=== PATIENT | female | born 1975 | race Caucasian/White ===

== ENCOUNTER 2017-10-13 18:05 | Emergency (ER) | payer SELFPAY ==
--- NOTE | 2017-10-13 20:47 | RAD REPORT ---
EXAM DESCRIPTION: CT - Soft Tissue Neck Wo Contr CLINICAL HISTORY: r/o abscess, no contrast;Sore throat Neck pain COMPARISON: [id number] dated 06/08/[address] scans are performed using dose optimization technique as appropriate and may includ e automated exposure control or mA/KV adjustment according to patient size. FINDINGS: The exam is significantly limited by lack of IV contrast. Specifically, evaluation for abs cess is limited. Within this limitation, no evidence of an abscess is identified. No prevertebral soft tissue swelling . Pharyngeal and laryngeal structures have a normal noncontrast appearance. The salivary glands are s ymmetric. Mildly prominent bilateral jugular chain lymph nodes are seen, favored to be reactive in et iology. No fracture identified. The upper lung mijares appear clear. Visualized paranasal sinuses and mastoids appear clear. IMPRESSION: Limited noncontrast examination demonstrates no evidence of acute abnormality.
--- NOTE | 2017-10-13 20:53 | EDPHYS ---
Physician Documentation [facility] Name: Renee Castellon Age: 42 yrs Sex: Female : 1975 Arrival Date: 10/13/2017 Time: 18:09 Bed 16 Private MD: Brendan Monaco ED Physician Emilio Cortez HPI: 10/13 19:06 This 42 yrs old Female presents to ER via Ambulatory with complaints of kb Swollen Glands. 19:06 The patient presents with sore throat, states she has felt like her throat is raw for kb the past 11 days and keeps getting worse. States she feels like there is something behind her tongue on the right side that keeps getting bigger. The patient describes throat pain as constant. Onset: The symptoms/episode began/occurred 11 day(s) ago. Severity of symptoms: At their worst the symptoms were mild, moderate, in the emergency department the symptoms are unchanged. Modifying factors: The symptoms are alleviated by nothing, the symptoms are aggravated by nothing. Associated signs and symptoms: Pertinent positives: Sore throat Pertinent negatives chest pain, chills, cough, diarrhea, dysphagia, earache, fever, flu-like symptoms, headache, nausea, rhinorrhea, shortness of breath, vomiting. The patient has not experienced similar symptoms in the past. The patient has not recently seen a physician. 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 - Social history:: Smoking status: Patient uses tobacco products, denies chronic smoking, but will smoke occasionally, Patient uses alcohol, occasionally. - Ebola Screening: : Patient negative for fever greater than or equal to 101.5 degrees Fahrenheit, and additional compatible Ebola Virus Disease symptoms Patient denies exposure to infectious person Patient denies travel to an Ebola-affected area in the 21 days before illness onset No symptoms or risks identified at this time. ROS: 19:04 Constitutional: Negative for fever, chills, and weight loss, Neck: Negative for injury, kb pain, and swelling, Cardiovascular: Negative for chest pain, palpitations, and edema, Respiratory: Negative for shortness of breath, cough, wheezing, and pleuritic chest pain, Abdomen/GI: Negative for abdominal pain, nausea, vomiting, diarrhea, and constipation, Back: Negative for injury and pain, MS/Extremity: Negative for injury and deformity, Skin: Negative for injury, rash, and discoloration, Neuro: Negative for headache, weakness, numbness, tingling, and seizure. 19:04 ENT: Positive for sinus pain, feels like there is something stuck in right side of throat, behind tongue. Exam: 19:04 Constitutional: This is a well developed, well nourished patient who is awake, alert, kb and in no acute distress. Head/Face: Normocephalic, atraumatic. Chest/axilla: Normal chest wall appearance and motion. Nontender with no deformity. No lesions are appreciated. Cardiovascular: Regular rate and rhythm with a normal S1 and S2. No gallops, murmurs, or rubs. Normal PMI, no JVD. No pulse deficits. Respiratory: Lungs have equal breath sounds bilaterally, clear to auscultation and percussion. No rales, rhonchi or wheezes noted. No increased work of breathing, no retractions or nasal flaring. Abdomen/GI: Soft, non-tender, with normal bowel sounds. No distension or tympany. No guarding or rebound. No evidence of tenderness throughout. Skin: Warm, dry with normal turgor. Normal color with no rashes, no lesions, and no evidence of cellulitis. MS/ Extremity: Pulses equal, no cyanosis. Neurovascular intact. Full, normal range of motion. Neuro: Awake and alert, GCS 15, oriented to person, place, time, and situation. Cranial nerves II-XII grossly intact. Motor strength 5/5 in all extremities. Sensory grossly intact. Cerebellar exam normal. Normal gait. 19:04 ENT: Posterior pharynx: Airway: normal, no evidence of obstruction, Tonsils: are normal in appearance, Uvula: normal, midline, erythema, that is mild. Vital Signs: 18:33 BP 130 / 92; Pulse 73; Resp 16; Temp 97.2; Pulse Ox 99% on R/A; Weight 82.1 kg; Height aj 5 ft. 6 in. (167.64 cm); 19:54 BP 113 / 84; Pulse 59; Resp 16; Pulse Ox 100% on R/A; aa1 21:07 BP 101 / 67; Pulse 60; Resp 16; Temp 97.4; Pulse Ox 100% on R/A; Pain 3/10; aa1 18:33 Body Mass Index 29.21 (82.10 kg, 167.64 cm) aj MDM: 18:36 Patient medically screened. kb 19:04 Data reviewed: vital signs, nurses notes. Data interpreted: Pulse oximetry: on room air kb is 99 %. Interpretation: normal. 20:51 Counseling: I had a detailed discussion with the patient and/or guardian regarding: the kb historical points, exam findings, and any diagnostic results supporting the discharge/admit diagnosis, lab results, radiology results, the need for outpatient follow up, a family practitioner, to return to the emergency department if symptoms worsen or persist or if there are any questions or concerns that arise at home. 10/13 18:42 Order name: Strep; Complete Time: 19:37 kb 10/13 18:42 Order name: [place] Screen Profile; Complete Time: 20:14 kb 10/13 19:37 Order name: Throat Culture EDMS 10/13 20:24 Order name: Soft Tissue Neck Wo Contr; Complete Time: 20:50 EDMS Administered Medications: No medications were administered Disposition: 10/13/17 20:53 Discharged to Home. Impression: Pain in throat. - Condition is Stable. - Discharge Instructions: Sore Throat, [id number]. - Medication Reconciliation Form, Thank You Letter, Antibiotic Education, Prescription Opioid Use form. - Follow up: Emergency Department; When: As needed; Reason: Worsening of condition. Follow up: Private Physician; When: 2 - 3 days; Reason: Recheck today's complaints, Continuance of care, Re-evaluation by your physician. Addendum: 10/28/2017 10:49 Co-signature as Attending Physician, Emilio Cortez MD I agree with the assessment and k dr plan of care. Signatures: Dispatcher [employer] EDCT Marylu Carreon, MAUREEN BROWN-Janelle Martin RN RN aa1 Allison Huggins RN Emilio Christensen MD MD kdr Corrections: (The following items were deleted from the chart) 10/13 20:24 20:17 Soft Tissue Neck W/Contr+CT.RAD.BRZ ordered. EDMS EDMS 20:53 20:53 10/13/2017 20:53 Discharged to Home. Impression: Sinus Congestion. Condition is kb Stable. Forms are Medication Reconciliation Form, Thank You Letter, Antibiotic Education, Prescription Opioid Use. Follow up: Emergency Department; When: As needed; Reason: Worsening of condition. Follow up: Private Physician; When: 2 - 3 days; Reason: Recheck today's complaints, Continuance of care, Re-evaluation by your physician. kb 21:09 20:53 10/13/2017 20:53 Discharged to Home. Impression: Pain in throat. Condition is aa1 Stable. Forms are Medication Reconciliation Form, Thank You Letter, Antibiotic Education, Prescription Opioid Use. Follow up: Emergency Department; When: As needed; Reason: Worsening of condition. Follow up: Private Physician; When: 2 - 3 days; Reason: Recheck today's complaints, Continuance of care, Re-evaluation by your physician. kb
--- NOTE | 2017-10-13 20:53 | ER ---
Nurse's Notes [facility] Name: Renee Castellon Age: 42 yrs Sex: Female : 1975 Arrival Date: 10/13/2017 Time: 18:09 Bed 16 Private MD: Brendan Monaco Diagnosis: Pain in throat Presentation: 10/13 18:31 Presenting complaint: Patient states: Sensation of swelling to right side of throat aj with right ear pain for 11 days. Patient reports taking Ampicillin for 3 days with no change in condition. Transition of care: patient was not received from another setting of care. Onset of symptoms was October 02, 2017. Risk Assessment: Do you want to hurt yourself or someone else? Patient reports no desire to harm self or others. Initial Sepsis Screen: Does the patient meet any 2 criteria? No. Patient's initial sepsis screen is negative. Does the patient have a suspected source of infection? No. Patient's initial sepsis screen is negative. Care prior to arrival: None. 18:31 Method Of Arrival: Ambulatory aj 18:31 Acuity: MICH 3 aj Triage Assessment: 18:33 General: Appears in no apparent distress. comfortable, Behavior is calm, cooperative, aj appropriate for age. Pain: Complains of pain in right ear. EENT: Throat is clear Reports pain in right ear Sensation of swelling to right side of throat. Neuro: Level of Consciousness is awake, alert, obeys commands, Oriented to person, place, time, situation, Appropriate for age. Respiratory: Airway is patent Respiratory effort is even, unlabored, Respiratory pattern is regular, symmetrical. Derm: Skin is intact, is healthy with good turgor, Skin is pink, warm \T\ dry. normal. 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 - Social history:: Smoking status: Patient uses tobacco products, denies chronic smoking, but will smoke occasionally, Patient uses alcohol, occasionally. - Ebola Screening: : Patient negative for fever greater than or equal to 101.5 degrees Fahrenheit, and additional compatible Ebola Virus Disease symptoms Patient denies exposure to infectious person Patient denies travel to an Ebola-affected area in the 21 days before illness onset No symptoms or risks identified at this time. Screenin:02 Abuse screen: Denies threats or abuse. Denies injuries from another. Nutritional aa1 screening: No deficits noted. Tuberculosis screening: No symptoms or risk factors identified. Fall Risk None identified. Assessment: 19:02 General: Appears in no apparent distress. comfortable, Behavior is calm, cooperative, aa1 appropriate for age. Pain: Complains of pain in neck and right ear Quality of pain is described as aching, Pain began 11 days ago. Neuro: Level of Consciousness is awake, alert, obeys commands, Oriented to person, place, time, situation, Moves all extremities. Full function Speech is normal. Respiratory: Airway is patent Respiratory effort is even, unlabored, Respiratory pattern is regular, symmetrical, Breath sounds are clear bilaterally. GI: No signs and/or symptoms were reported involving the gastrointestinal system. : No signs and/or symptoms were reported regarding the genitourinary system. EENT: Throat is reddened Reports pain when swallowing. Derm: Skin is intact, is healthy with good turgor, Skin is pink, warm \T\ dry. Musculoskeletal: Circulation, motion, and sensation intact. Capillary refill < 3 seconds. 19:54 Reassessment: Patient appears in no apparent distress at this time. Patient and/or aa1 family updated on plan of care and expected duration. Pain level reassessed. Patient is alert, oriented x 3, equal unlabored respirations, skin warm/dry/pink. Awaiting mono screen. 20:29 Reassessment: Patient appears in no apparent distress at this time. Patient and/or aa1 family updated on plan of care and expected duration. Pain level reassessed. Patient is alert, oriented x 3, equal unlabored respirations, skin warm/dry/pink. Pt taken to CT at this time. 21:07 Reassessment: Patient appears in no apparent distress at this time. Patient and/or aa1 family updated on plan of care and expected duration. Pain level reassessed. Patient is alert, oriented x 3, equal unlabored respirations, skin warm/dry/pink. Discussed d/c \T\ f/u instructions with pt; denies questions or concerns at this time. Vital Signs: 18:33 BP 130 / 92; Pulse 73; Resp 16; Temp 97.2; Pulse Ox 99% on R/A; Weight 82.1 kg; Height aj 5 ft. 6 in. (167.64 cm); 19:54 BP 113 / 84; Pulse 59; Resp 16; Pulse Ox 100% on R/A; aa1 21:07 BP 101 / 67; Pulse 60; Resp 16; Temp 97.4; Pulse Ox 100% on R/A; Pain 3/10; aa1 18:33 Body Mass Index 29.21 (82.10 kg, 167.64 cm) aj ED Course: 18:09 Patient arrived in ED. sb2 18:09 Brendan Monaco MD is Private Physician. sb2 18:33 Triage completed. aj 18:33 Arm band placed on left wrist. Patient placed. aj 18:36 Marylu Carreon F[facility]-C [facility]. kb 18:36 Emilio Cortez MD is Attending Physician. kb 19:02 Patient has correct armband on for positive identification. Bed in low position. Call aa1 light in reach. Pulse ox on. NIBP on. Warm blanket given. 19:05 Initial lab(s) drawn, by me, sent to lab. Strep swab sent to lab. aa1 19:13 Janelle Barnett, RN is Primary Nurse. aa1 20:28 [facility] moved to [facility]. [place] 20:33 CT completed. Patient tolerated procedure well. Patient moved back from [facility]. ga 20:33 Soft Tissue Neck Wo Contr In Process Unspecified. EDMS 21:07 No provider procedures requiring assistance completed. Patient did not have IV access aa1 during this emergency room visit. Administered Medications: No medications were administered Outcome: 20:53 Discharge ordered by . kb 21:07 Discharged to home ambulatory. aa1 21:07 Condition: good 21:07 Discharge instructions given to patient, Instructed on discharge instructions, follow up and referral plans. medication usage, Demonstrated understanding of instructions, follow-up care, medications. 21:09 Patient left the ED. aa1 Signatures: Dispatcher [employer] EDMA Marylu Carreon FNP-C FNP-Janelle Martin, RN RN aa1 Allison Huggins, RN RN aj Shun, Yordy Darby, Elida 2
[2017-10-13 21:16] VITALS: O2SAT 100
[2017-10-13 21:18] VITALS: BP 101/67; TEMP 97.4
== END 2017-10-13 21:09 | disposition home or self-care (01) ==
LOC: ER 18:05
DX: R07.0 Pain in throat (principal); K21.9 Gastro-esophageal reflux disease without esophagitis; Z88.5 Allergy status to narcotic agent; Z91.013 Allergy to seafood
CPT/HCPCS: 36415; 70490; 86308; 87070; 87081; 99284

== ENCOUNTER 2017-12-02 08:26 | Emergency (ER) | payer OTHER, SELFPAY ==
--- NOTE | 2017-12-02 09:20 | RAD REPORT ---
EXAM DESCRIPTION: CT - Soft Tissue Neck Wo Contr - 12/02/2017 9:06 am CLINICAL HISTORY: Throat pain, mass sensation tongue or tongue base region COMPARISON: Soft tissue CT neck exam October 13 TECHNIQUE: Axial 3 millimeter thick images of the neck were obtained without contrast. Patient has i odinated contrast allergy. Sagittal and coronal reformatted images generated and reviewed. All CT scans are performed using dose optimization technique as appropriate and may include automated exposure control or mA/KV adjustment according to patient size. FINDINGS: No globe or orbital content abnormality. Mastoid air cells and paranasal sinuses are clear . Intracranial portion of the examination is unremarkable. No pharyngeal mucosal mass or asymmetry identifiable. No tonsillar mass. Soft palate is normal in anjali earance as well. No tongue or tongue base mass appreciated on this study. Musculature along the floor the mouth normal in appearance as well. Epiglottis is normal in appearance. No laryngeal mass or asymmetry. No abnormal lymphadenopathy in the neck soft tissues. There are a few 10 mm or less bilateral cervica l lymph nodes present in a pattern similar to the September study. No progressive lymphadenopathy. The p arotid, thyroid and submandibular gland tissues are normal in appearance. IMPRESSION: No tongue or tongue base mass identifiable on this study. No suspicious finding to expla in the throat pain or tongue region mass sensation. Small bilateral 10 mm or less cervical lymph nodes in a pattern similar to September 2017.
--- NOTE | 2017-12-02 09:29 | ER ---
Nurse's Notes [facility] Name: Renee Castellon Age: 42 yrs Sex: Female : 1975 Arrival Date: 12/02/2017 Time: 08:30 Bed 5 Private MD: Diagnosis: Pain in throat Presentation: 12/02 08:37 Presenting complaint: Patient states: on october 03 she felt something behind her iw tongue, it feels bigger now, and also has pain to right jaw, right ear, across right side of face that woke her up in her sleep last night, denies fever, denies difficulty swallowing. Transition of care: patient was not received from another setting of care. Onset of symptoms was October 03, 2017. Risk Assessment: Do you want to hurt yourself or someone else? Patient reports no desire to harm self or others. Initial Sepsis Screen: Does the patient meet any 2 criteria? No. Patient's initial sepsis screen is negative. Does the patient have a suspected source of infection? No. Patient's initial sepsis screen is negative. Care prior to arrival: None. 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 - Social history:: Smoking status: Patient/guardian denies using tobacco, Patient/guardian denies using alcohol. - Ebola Screening: : Patient negative for fever greater than or equal to 101.5 degrees Fahrenheit, and additional compatible Ebola Virus Disease symptoms Patient denies exposure to infectious person Patient denies travel to an Ebola-affected area in the 21 days before illness onset No symptoms or risks identified at this time. - Family history:: not pertinent. - Hospitalizations: : No recent hospitalization is reported. Screenin:45 Abuse screen: Denies threats or abuse. Denies injuries from another. Nutritional bp screening: No deficits noted. Tuberculosis screening: No symptoms or risk factors identified. Fall Risk None identified. Assessment: 08:40 General: Appears in no apparent distress. comfortable, Behavior is cooperative, bp appropriate for age, anxious, 42YO WF P/W SUBJECTIVE LYMPHADENOPATHY AND UNPLANNED WEIGHT LOSS WITH DYSPHAGIA. NO OBJECTIVE FINDINGS AT THIS TIME. Pain: Denies pain. Neuro: Level of Consciousness is awake, alert, obeys commands, Oriented to person, place, time, situation, Appropriate for age. Cardiovascular: No deficits noted. Respiratory: Airway is patent Respiratory effort is even, unlabored, Respiratory pattern is regular, symmetrical, Breath sounds are clear bilaterally. GI: No signs and/or symptoms were reported involving the gastrointestinal system. : No signs and/or symptoms were reported regarding the genitourinary system. EENT: Throat is clear bilaterally with gag reflex present, NO DROOLING OR DIFFICULTY WITH OWN SECRETION. Derm: No deficits noted. Musculoskeletal: Circulation, motion, and sensation intact. Range of motion: intact in all extremities. 09:09 Reassessment: PT RETURNED FROM CT. ALL CURRENT STUDIES COMPLETED. bp 09:33 Reassessment: PT D/C HOME AMBULATORY, DX WITH THROAT PAIN. bp Vital Signs: 08:40 BP 141 / 91; Pulse 78; Resp 16; Temp 97.8(O); Pulse Ox 100% on R/A; iw 09:15 BP 114 / 75; Pulse 62; Resp 14; Pulse Ox 100% ; bp 09:33 BP 122 / 81; Pulse 68; Resp 14; Pulse Ox 100% ; bp ED Course: 08:30 Patient arrived in ED. mr 08:30 Bandar Hobbs MD is Attending Physician. rn 08:35 Brendan Montes, FRANCES is Primary Nurse. bp 08:39 Triage completed. iw 08:41 Arm band placed on. iw 08:45 Patient has correct armband on for positive identification. Bed in low position. Call bp light in reach. Side rails up X2. 09:04 CT completed. Patient tolerated procedure well. Patient moved to CT via wheelchair. sj Patient moved back from CT. 09:05 Soft Tissue Neck Wo Contr In Process Unspecified. EDMS 09:34 No provider procedures requiring assistance completed. Patient did not have IV access bp during this emergency room visit. Administered Medications: No medications were administered Outcome: 09:29 Discharge ordered by . rn 09:34 Discharged to home ambulatory. bp 09:34 Condition: stable 09:34 Discharge instructions given to patient, Instructed on discharge instructions, follow up and referral plans. Demonstrated understanding of instructions, follow-up care. 09:34 Patient left the ED. bp Signatures: Dispatcher [employer] EDGARDO MajanoNickie whelan KobyNataly Irene, RN Bandar Merino MD MD rn Joaquin, Henry, RN RN hj Peltier, Brian, RN RN bp
--- NOTE | 2017-12-02 09:29 | EDPHYS ---
Physician Documentation [facility] Name: Renee Castellon Age: 42 yrs Sex: Female : 1975 Arrival Date: 12/02/2017 Time: 08:30 Bed 5 Private MD: ED Physician Bandar Hobbs HPI: 12/02 08:49 This 42 yrs old Female presents to ER via Ambulatory with complaints of feels rn like something in throat. 08:49 The patient presents with a foreign body sensation in the throat. The patient describes rn throat pain as intermittent. Onset: The symptoms/episode began/occurred 2 month(s) ago. Severity of symptoms: At their worst the symptoms were mild, in the emergency department the symptoms are unchanged. Associated signs and symptoms: Pertinent negatives cough, dysphagia, fever, flu-like symptoms, shortness of breath. The patient has not experienced similar symptoms in the past. Reports 2 months of worsening symptoms, feels like something at base of tongue/back of throat, 40 pound weight loss but also started on keto diet, + smoker and drinker, no hemoptysis, no sob, able to swallow without difficulty. . 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 - Social history:: Smoking status: Patient/guardian denies using tobacco, Patient/guardian denies using alcohol. - Ebola Screening: : Patient negative for fever greater than or equal to 101.5 degrees Fahrenheit, and additional compatible Ebola Virus Disease symptoms Patient denies exposure to infectious person Patient denies travel to an Ebola-affected area in the 21 days before illness onset No symptoms or risks identified at this time. - Family history:: not pertinent. - Hospitalizations: : No recent hospitalization is reported. ROS: 08:49 Constitutional: Negative for fever, chills, and weight loss, Eyes: Negative for injury, rn pain, redness, and discharge, ENT: Negative for injury, and discharge, Neck: Negative for injury Cardiovascular: Negative for chest pain, palpitations, and edema, Respiratory: Negative for shortness of breath, cough, wheezing, and pleuritic chest pain, Abdomen/GI: Negative for abdominal pain, nausea, vomiting, diarrhea, and constipation, MS/Extremity: Negative for injury and deformity, Skin: Negative for injury, rash, and discoloration, Neuro: Negative for headache, weakness, numbness, tingling, and seizure. Exam: 08:49 Constitutional: This is a well developed, well nourished patient who is awake, alert, rn and in no acute distress. Head/Face: Normocephalic, atraumatic. Eyes: Pupils equal round and reactive to light, extra-ocular motions intact. ENT: Nares patent. No nasal discharge, no septal abnormalities noted. Tympanic membranes are normal and external auditory canals are clear. Oropharynx with no redness, swelling, or masses, exudates, or evidence of obstruction, uvula midline. Mucous membranes moist. NO stridor. Neck: + bilateral non-tender cervical LAD Skin: Warm, dry with normal turgor. Normal color with no rashes, no lesions, and no evidence of cellulitis. MS/ Extremity: Pulses equal, no cyanosis. Neurovascular intact. Full, normal range of motion. Equal circumference. Neuro: Awake and alert, GCS 15, oriented to person, place, time, and situation. Cranial nerves II-XII grossly intact. Motor strength 5/5 in all extremities. Sensory grossly intact. Cerebellar exam normal. Normal gait. Vital Signs: 08:40 BP 141 / 91; Pulse 78; Resp 16; Temp 97.8(O); Pulse Ox 100% on R/A; iw 09:15 BP 114 / 75; Pulse 62; Resp 14; Pulse Ox 100% ; bp 09:33 BP 122 / 81; Pulse 68; Resp 14; Pulse Ox 100% ; bp MDM: 08:34 Patient medically screened. rn 09:26 Differential diagnosis: Allergic rhinitis, laryngitis, squamous cell carcinoma upper rn respiratory infection, viral syndrome head and neck mass. Data reviewed: vital signs, nurses notes, radiologic studies, CT scan, and as a result, I will discharge patient. Counseling: I had a detailed discussion with the patient and/or guardian regarding: the historical points, exam findings, and any diagnostic results supporting the discharge/admit diagnosis, radiology results, the need for outpatient follow up, to return to the emergency department if symptoms worsen or persist or if there are any questions or concerns that arise at home. Special discussion: I discussed with the patient/guardian in detail that at this point there is no indication for admission to the hospital. It is understood, however, that if the symptoms persist or worsen the patient needs to return immediately for re-evaluation. Based on the history and exam findings, there is no indication for further emergent testing or inpatient evaluation. I discussed with the patient/guardian the need to see the ENT specialist for further evaluation of the symptoms. ED course: No clear etiology on CT neck, has ENT appt on Wednesday, no airway compromise, can swallow.. 12/02 08:51 Order name: Soft Tissue Neck Wo Contr; Complete Time: 09:23 [facility] Administered Medications: No medications were administered Disposition: 12/02/17 09:29 Discharged to Home. Impression: Pain in throat. - Condition is Stable. - Discharge Instructions: Pain Without a Known Cause, Laryngoscopy. - Medication Reconciliation Form, Thank You Letter, Antibiotic Education, Prescription Opioid Use form. - Follow up: Private Physician; When: As needed; Reason: Recheck today's complaints, Re-evaluation by your physician. - Problem is an ongoing problem. - Symptoms are unchanged. Signatures: Dispatcher [employer] [facility] Esthela Marie RN RN iw Nieto, Roman, MD MD rn Joaquin, Henry, RN RN hj Peltier, Brian, RN RN bp Corrections: (The following items were deleted from the chart) 08:51 08:49 Soft Tissue Neck W/Contr+CT.RAD.BRZ ordered. [facility] 09:34 09:29 12/02/2017 09:29 Discharged to Home. Impression: Pain in throat. Condition is bp Stable. Forms are Medication Reconciliation Form, Thank You Letter, Antibiotic Education, Prescription Opioid Use. Follow up: Private Physician; When: As needed; Reason: Recheck today's complaints, Re-evaluation by your physician. Problem is an ongoing problem. Symptoms are unchanged. rn
[2017-12-02 09:38] VITALS: TEMP 97.8; O2SAT 100
[2017-12-02 09:40] VITALS: BP 122/81
== END 2017-12-02 09:34 | disposition home or self-care (01) ==
LOC: ER 08:26
DX: R07.0 Pain in throat (principal); Z88.6 Allergy status to analgesic agent; Z91.013 Allergy to seafood
CPT/HCPCS: 70490; 99284

== ENCOUNTER 2018-01-08 21:53 | Emergency (ER) | payer OTHER ==
[2018-01-08] MEDS ORDERED: metroNIDAZOLE 500 MG TABLET ONE (22:39)
[2018-01-08] MEDS ORDERED: IBUPROFEN 400 MG TAB ONE (22:40)
[2018-01-08] MEDS ORDERED: Oxycodone HCl/Acetaminophen 1 TAB TAB ONE (22:40)
[2018-01-08] MEDS ORDERED: ONDANSETRON 4 MG (ODT) TAB ONE (22:40)
--- NOTE | 2018-01-08 23:04 | ER ---
Nurse's Notes [facility] Name: Renee Castellon Age: 42 yrs Sex: Female : 1975 Arrival Date: 01/08/2018 Time: 21:56 Bed 28 Private MD: Diagnosis: Dental Pain Presentation: 01/08 22:03 Presenting complaint: Patient states: toothache since yesterday, seen by a dentist mg2 yesterday and was prescribed with amoxicillin and tylenol #3. last taken this 1915 and 2000H. Transition of care: patient was not received from another setting of care. Onset of symptoms was January 07, 2018. Risk Assessment: Do you want to hurt yourself or someone else? Patient reports no desire to harm self or others. Initial Sepsis Screen: Does the patient meet any 2 criteria? No. Patient's initial sepsis screen is negative. Does the patient have a suspected source of infection? No. Patient's initial sepsis screen is negative. Care prior to arrival: None. 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 - Social history:: Smoking status: Patient uses tobacco products, denies chronic smoking, but will smoke occasionally, cigars, Patient uses alcohol, occasionally. Patient/guardian denies using street drugs, IV drugs. - Ebola Screening: : No symptoms or risks identified at this time. Screenin:09 Abuse screen: Denies threats or abuse. Denies injuries from another. Nutritional mg2 screening: No deficits noted. Tuberculosis screening: No symptoms or risk factors identified. Fall Risk None identified. Assessment: 22:10 General: Appears in no apparent distress. comfortable, Behavior is calm, cooperative. mg2 Pain: Complains of pain in tooth Pain does not radiate. Pain currently is 10 out of 10 on a pain scale. Quality of pain is described as aching, Pain began 2-3 days ago. Is intermittent, Alleviated by medications. Neuro: Level of Consciousness is awake, alert, obeys commands, Oriented to person, place, time, situation. Cardiovascular: Capillary refill < 3 seconds Patient's skin is warm and dry. Respiratory: Airway is patent Respiratory effort is even, unlabored, Respiratory pattern is regular, symmetrical. GI: Reports nausea. : No signs and/or symptoms were reported regarding the genitourinary system. EENT: Dental caries noted in upper left second molar (#15). Derm: Skin is intact, is healthy with good turgor, Skin is pink, warm \T\ dry. normal. Musculoskeletal: No signs and/or symptoms reported regarding the musculoskeletal system. Vital Signs: 22:05 BP 150 / 99; Pulse 97; Resp 18; Temp 97.6; Pulse Ox 100% on R/A; Weight 83.91 kg; mg2 Height 5 ft. 6 in. (167.64 cm); Pain 10/10; 22:44 BP 118 / 78; Pulse 90; Resp 18; Pulse Ox 100% on R/A; Pain 8/10; mg2 23:19 BP 123 / 75; Pulse 89; Resp 18; Pulse Ox 100% on R/A; Pain 3/10; mg2 22:05 Body Mass Index 29.86 (83.91 kg, 167.64 cm) mg2 ED Course: 21:56 Patient arrived in ED. ag3 22:03 Danny Elise, FRANCES is Primary Nurse. mg2 22:04 Km Hernandez PA is PHCP. cp 22:04 Km Arambula MD is Attending Physician. cp 22:05 Triage completed. mg2 22:09 Arm band placed on. mg2 22:12 No provider procedures requiring assistance completed. Patient did not have IV access mg2 during this emergency room visit. 22:45 Patient has correct armband on for positive identification. Pulse ox on. NIBP on. mg2 23:01 Carlos Eduardo Cronin DDS is Referral Physician. cp Administered Medications: 22:38 Drug: metroNIDAZOLE 500 mg Route: PO; mg2 23:18 Follow up: Response: No adverse reaction; Marked relief of symptoms mg2 22:38 Drug: Percocet (5 mg-325 mg) 2 tabs Route: PO; mg2 23:18 Follow up: Response: No adverse reaction; Marked relief of symptoms mg2 22:38 Drug: Ibuprofen 800 mg Route: PO; mg2 23:17 Follow up: Response: No adverse reaction; Marked relief of symptoms mg2 22:39 Drug: Zofran 4 mg Route: PO; mg2 23:18 Follow up: Response: No adverse reaction; Marked relief of symptoms mg2 Outcome: 23:02 Discharge ordered by . cp 23:19 Discharged to home ambulatory, with family. mg2 23:19 Condition: stable 23:19 Discharge instructions given to patient, family, Instructed on discharge instructions, follow up and referral plans. medication usage, Demonstrated understanding of instructions, follow-up care, medications, Prescriptions given X 2. 23:20 Patient left the ED. mg2 Signatures: Km Hernandez PA PA cp Gardose, Michele, RN RN mg2 Carina Christianson3
--- NOTE | 2018-01-08 23:04 | EDPHYS ---
Physician Documentation [facility] Name: Renee Castellon Age: 42 yrs Sex: Female : 1975 Arrival Date: 01/08/2018 Time: 21:56 Bed 28 Private MD: ED Physician Km Arambula HPI: 01/08 22:20 This 42 yrs old Female presents to ER via Ambulatory with complaints of cp Toothache. 22:20 The patient presents with pain. The problem is located in the left upper molar. Onset: cp The symptoms/episode began/occurred yesterday. Duration: The symptoms are continuous, and are steadily getting worse. Associated signs and symptoms: Pertinent positives: nausea, Pertinent negatives: anorexia, dysphagia, fever, inability to eat, swelling, vomiting. Severity of symptoms: in the emergency department the symptoms are unchanged, despite home interventions. The patient has been recently seen by a physician: a dentist, with similar presenting complaints, was given a prescription for pain medications, was given a prescription for antibiotics. Patient reports taking 2 doses of amoxicillin today and took prescribed Tylenol #3 w/o relief of pain. 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 - Social history:: Smoking status: Patient uses tobacco products, denies chronic smoking, but will smoke occasionally, cigars, Patient uses alcohol, occasionally. Patient/guardian denies using street drugs, IV drugs. - Ebola Screening: : No symptoms or risks identified at this time. ROS: 22:25 Constitutional: Negative for body aches, chills, fever, poor PO intake. cp 22:25 Eyes: Negative for injury, pain, redness, and discharge. cp 22:25 ENT: Positive for dental pain, Negative for drainage from ear(s), ear pain, sore throat, difficulty swallowing, difficulty handling secretions. 22:25 Neck: Negative for pain with movement, pain at rest, stiffness. 22:25 Respiratory: Negative for cough, shortness of breath, wheezing. 22:25 Skin: Negative for cellulitis, rash. 22:25 Neuro: Negative for dizziness, headache. 22:25 All other systems are negative. Exam: 22:30 Constitutional: The patient appears in no acute distress, alert, awake, non-toxic, well cp developed, well nourished. 22:30 Head/Face: Normocephalic, atraumatic. cp 22:30 Eyes: Periorbital structures: appear normal, Conjunctiva: normal, no exudate, no injection, Sclera: no appreciated abnormality, Lids and lashes: appear normal, bilaterally. 22:30 ENT: External ear(s): are unremarkable, Ear canal(s): are normal, clear, TM's: bulging, is not appreciated, bilaterally, dullness, bilaterally, erythema, is not appreciated, bilaterally, Nose: is normal, Mouth: Lips: moist, Oral mucosa: pink and intact, moist, Gums: normal with healthy appearance, Tongue: is normal, abscess, is not appreciated, drooling, is not appreciated, Posterior pharynx: Airway: no evidence of obstruction, patent, Tonsils: are normal in appearance, Uvula: midline, swelling, is not appreciated, erythema, is not appreciated, exudate, is not appreciated, Dental exam: abscess, is not appreciated, dental caries, that is mild, diffusely, gum swelling, not appreciated, pain, that is severe, specifically in the upper left second molar (#15), Voice: is normal. 22:30 Neck: ROM/movement: is normal, is supple, without pain, no range of motions limitations, no meningismus, no nuchal rigidity, Lymph nodes: no appreciated lymphadenopathy. 22:30 Chest/axilla: Inspection: normal, Palpation: is normal, no crepitus, no tenderness. 22:30 Cardiovascular: Rate: normal, Rhythm: regular. 22:30 Respiratory: the patient does not display signs of respiratory distress, Respirations: normal, no use of accessory muscles, no retractions, no splinting, no tachypnea, Breath sounds: are clear throughout, no decreased breath sounds, no stridor, no wheezing. 22:30 Skin: cellulitis, is not appreciated, no rash present. Vital Signs: 22:05 BP 150 / 99; Pulse 97; Resp 18; Temp 97.6; Pulse Ox 100% on R/A; Weight 83.91 kg; mg2 Height 5 ft. 6 in. (167.64 cm); Pain 10/10; 22:44 BP 118 / 78; Pulse 90; Resp 18; Pulse Ox 100% on R/A; Pain 8/10; mg2 23:19 BP 123 / 75; Pulse 89; Resp 18; Pulse Ox 100% on R/A; Pain 3/10; mg2 22:05 Body Mass Index 29.86 (83.91 kg, 167.64 cm) mg2 MDM: 22:05 Patient medically screened. cp 23:00 Data reviewed: vital signs, nurses notes, and as a result, I will discharge patient. cp 23:00 Differential diagnosis: dental caries, dental abscess, pericoronitis. Counseling: I had cp a detailed discussion with the patient and/or guardian regarding: the historical points, exam findings, and any diagnostic results supporting the discharge/admit diagnosis, the need for outpatient follow up, for definitive care, a dentist, to return to the emergency department if symptoms worsen or persist or if there are any questions or concerns that arise at home. Administered Medications: 22:38 Drug: metroNIDAZOLE 500 mg Route: PO; mg2 23:18 Follow up: Response: No adverse reaction; Marked relief of symptoms mg2 22:38 Drug: Percocet (5 mg-325 mg) 2 tabs Route: PO; mg2 23:18 Follow up: Response: No adverse reaction; Marked relief of symptoms mg2 22:38 Drug: Ibuprofen 800 mg Route: PO; mg2 23:17 Follow up: Response: No adverse reaction; Marked relief of symptoms mg2 22:39 Drug: Zofran 4 mg Route: PO; mg2 23:18 Follow up: Response: No adverse reaction; Marked relief of symptoms mg2 Disposition: 01/08/18 23:02 Discharged to Home. Impression: Dental Pain. - Condition is Stable. - Discharge Instructions: Dental Pain. - Prescriptions for Anaprox DS 550 mg Oral Tablet - take 1 tablet by ORAL route every 12 hours As needed; 20 tablet. Metronidazole 500 mg Oral Tablet - take 1 tablet by ORAL route every 12 hours; 20 tablet. - Medication Reconciliation Form, Thank You Letter, Antibiotic Education, Prescription Opioid Use form. - Follow up: Fugler, Carlos Eduardo, DDS; When: 1 - 2 days; Reason: Recheck today's complaints. - Problem is new. - Symptoms have improved. Addendum: 01/10/2018 09:43 Co-signature as Attending Physician, Km Arambula MD I agree with the assessment and c collazo plan of care. Signatures: Km Arambula MD MD cha Page, Corey, PA PA cp Gardose, Michele, RN RN mg2 Corrections: (The following items were deleted from the chart) 01/08 23:20 23:02 01/08/2018 23:02 Discharged to Home. Impression: Dental Pain. Condition is mg2 Stable. Forms are Medication Reconciliation Form, Thank You Letter, Antibiotic Education, Prescription Opioid Use. Follow up: Carlos Eduardo Cronin; When: 1 - 2 days; Reason: Recheck today's complaints. Problem is new. Symptoms have improved. cp
[2018-01-08 23:34] VITALS: TEMP 97.6; O2SAT 100
[2018-01-08 23:37] VITALS: BP 123/75
== END 2018-01-08 23:20 | disposition home or self-care (01) ==
LOC: ER 21:53
DX: K08.89 Other specified disorders of teeth and supporting structures (principal); K21.9 Gastro-esophageal reflux disease without esophagitis; Z79.899 Other long term (current) drug therapy; Z72.0 Tobacco use
CPT/HCPCS: 99283

== ENCOUNTER 2018-09-25 15:04 | Emergency (ER) | payer OTHER ==
[2018-09-25] MEDS ORDERED: ONDANSETRON 4 MG (ODT) TAB ONE (15:44)
[2018-09-25] MEDS ORDERED: MEPERIDINE HCL 50 MG/ML AMP ONE (15:44)
[2018-09-25] MEDS ORDERED: PROMETHAZINE 25 MG TABLET ONE (16:01)
--- NOTE | 2018-09-25 16:03 | ER ---
Nurse's Notes [facility] Name: Renee Castellon Age: 43 yrs Sex: Female : 1975 Arrival Date: 09/25/2018 Time: 15:06 Bed 30 Private MD: Brendan Monaco Diagnosis: Periapical abscess without sinus Presentation: 09/25 15:09 Presenting complaint: Patient states: left upper tooth pain started yesterday and then sv today c/o left jaw pain. Transition of care: patient was not received from another setting of care. Onset of symptoms was September 24, 2018. Risk Assessment: Do you want to hurt yourself or someone else? Patient reports no desire to harm self or others. Care prior to arrival: Medication(s) given: naproxen. 15:09 Method Of Arrival: Ambulatory sv 15:09 Acuity: MICH 3 sv 15:41 Initial Sepsis Screen: Does the patient meet any 2 criteria? No. Patient's initial ca1 sepsis screen is negative. Does the patient have a suspected source of infection? No. Patient's initial sepsis screen is negative. Triage Assessment: 15:41 General: Appears. 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 - Social history:: Smoking status: Patient uses tobacco products, denies chronic smoking, but will smoke occasionally. - Ebola Screening: : No symptoms or risks identified at this time. Screenin:30 Abuse screen: Denies threats or abuse. Denies injuries from another. Nutritional ca1 screening: No deficits noted. Tuberculosis screening: No symptoms or risk factors identified. Fall Risk None identified. Assessment: 15:30 General: Appears in no apparent distress. comfortable, Behavior is calm, cooperative, ca1 appropriate for age. Pain: Complains of pain in upper right first molar (#3) and upper right second molar (#2) and mouth Pain currently is 10 out of 10 on a pain scale. Pain began this morning. Neuro: Level of Consciousness is awake, alert, obeys commands, Oriented to person, place, time, situation. Cardiovascular: Heart tones S1 S2 present Capillary refill < 3 seconds Patient's skin is warm and dry. Respiratory: Airway is patent Respiratory effort is even, unlabored, Respiratory pattern is regular, symmetrical, Breath sounds are clear bilaterally. GI: Abdomen is round non-distended, Bowel sounds present X 4 quads. Abd is soft and non tender X 4 quads. GI: Reports nausea. : No deficits noted. No signs and/or symptoms were reported regarding the genitourinary system. EENT: Oral mucosa is moist. Derm: Skin is intact, is healthy with good turgor, Skin is pink, warm \T\ dry. Musculoskeletal: Circulation, motion, and sensation intact. Capillary refill < 3 seconds, Range of motion: intact in all extremities. 15:45 Reassessment: Pt c/o nausea worsening. Notified provider. Order given. ca1 16:28 Reassessment: Patient appears in no apparent distress at this time. Patient is alert, ca1 oriented x 3, equal unlabored respirations, skin warm/dry/pink. Patient states feeling better. Vital Signs: 15:10 BP 136 / 84; Pulse 75; Resp 20; Temp 97.4; Pulse Ox 100% ; Weight 89.81 kg; Height 5 sv ft. 7 in. (170.18 cm); Pain 8/10; 15:40 BP 123 / 90; Pulse 94; Resp 16 S; Pulse Ox 100% on R/A; ca1 15:50 Temp 97.2; ca1 16:28 BP 105 / 83; Pulse 67; Resp 16; Pulse Ox 100% on R/A; ca1 15:10 Body Mass Index 31.01 (89.81 kg, 170.18 cm) sv ED Course: 15:06 Patient arrived in ED. ag5 15:07 Brendan Monaco MD is Private Physician. ag5 15:10 Triage completed. sv 15:11 Arm band placed on Patient placed in an exam room, on a stretcher. sv 15:12 Sanya Pino PA is PHCP. jr8 15:12 Km Arambula MD is Attending Physician. jr8 15:30 Patient has correct armband on for positive identification. Bed in low position. Call ca1 light in reach. Side rails up X 1. Pulse ox on. NIBP on. Warm blanket given. 15:30 Patient did not have IV access during this emergency room visit. ca1 15:37 Sheela Zhang, RN is Primary Nurse. ca1 16:10 Assist provider with nerve block (dental) of Left upper molar. Set up for procedure. ca1 Performed by Sanya DIGGS Patient tolerated well. Administered Medications: 15:30 Drug: Zofran 4 mg Route: PO; ca1 15:45 Follow up: Response: No adverse reaction; Pain is unchanged, physician notified ca1 15:35 Drug: Demerol 50 mg Route: IM; Site: right deltoid; ca1 16:16 Follow up: Response: No adverse reaction; Pain is decreased ca1 15:46 Drug: Phenergan 25 mg Route: PO; ca1 16:17 Follow up: Response: No adverse reaction; Nausea is decreased ca1 16:16 Drug: Marcaine (0.5 %) 1 vials {Note: by DONTAE Herrera.} Volume: 10 ml; Route: ca1 Infiltration; Outcome: 16:02 Discharge ordered by MD. tanner 16:33 Discharged to home via wheelchair. ca1 16:33 Condition: stable 16:33 Discharge instructions given to patient, Instructed on discharge instructions, follow up and referral plans. medication usage, Demonstrated understanding of instructions, follow-up care, medications, Prescriptions given X 3. 16:34 Patient left the ED. ca1 Signatures: Fabiana Carter RN RN Sanya Pino PA PA jrSheela Gonzalez RN RN [facility] John Pan ag5 Corrections: (The following items were deleted from the chart) 15:40 15:30 BP 123 / 90; Pulse 94bpm; Resp 16bpm; Spontaneous; Pulse Ox 100% RA; ca1 ca1 16:29 15:30 No provider procedures requiring assistance completed. ca1 ca1
--- NOTE | 2018-09-25 16:03 | EDPHYS ---
Physician Documentation [facility] Name: Renee Castellon Age: 43 yrs Sex: Female : 1975 Arrival Date: 09/25/2018 Time: 15:06 Bed 30 Private MD: Brendan Monaco ED Physician Km Arambula HPI: 09/25 15:27 This 43 yrs old Female presents to ER via Ambulatory with complaints of Jaw jr8 Pain, Toothache, Neck Pain, <24hrs Old. 15:27 The patient presents with pain. The problem is located in the mouth. Onset: The jr8 symptoms/episode began/occurred acutely, today. Duration: The symptoms are continuous. Modifying factors: The symptoms are alleviated by nothing, the symptoms are aggravated by air, chewing, talking. Associated signs and symptoms: The patient has no apparent associated signs or symptoms. Severity of symptoms: At their worst the symptoms were moderate, in the emergency department the symptoms are unchanged. The patient has experienced a previous episode. The patient has not recently seen a physician. Stated that she started to have toothache early today. Has been taking her prescribed Naproxen from in the past but now not working. 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 - Social history:: Smoking status: Patient uses tobacco products, denies chronic smoking, but will smoke occasionally. - Ebola Screening: : No symptoms or risks identified at this time. ROS: 15:27 Eyes: Negative for injury, pain, redness, and discharge, Neck: Negative for injury, jr8 pain, and swelling, Cardiovascular: Negative for chest pain, palpitations, and edema, Respiratory: Negative for shortness of breath, cough, wheezing, and pleuritic chest pain, Abdomen/GI: Negative for abdominal pain, nausea, vomiting, diarrhea, and constipation, Back: Negative for injury and pain, MS/Extremity: Negative for injury and deformity, Skin: Negative for injury, rash, and discoloration, Neuro: Negative for headache, weakness, numbness, tingling, and seizure. 15:27 ENT: Positive for dental pain. Exam: 15:27 Eyes: Pupils equal round and reactive to light, extra-ocular motions intact. Lids and jr8 lashes normal. Conjunctiva and sclera are non-icteric and not injected. Cornea within normal limits. Periorbital areas with no swelling, redness, or edema. Neck: Trachea midline, no thyromegaly or masses palpated, and no cervical lymphadenopathy. Supple, full range of motion without nuchal rigidity, or vertebral point tenderness. No Meningismus. Cardiovascular: Regular rate and rhythm with a normal S1 and S2. No gallops, murmurs, or rubs. Normal PMI, no JVD. No pulse deficits. Respiratory: Lungs have equal breath sounds bilaterally, clear to auscultation and percussion. No rales, rhonchi or wheezes noted. No increased work of breathing, no retractions or nasal flaring. Abdomen/GI: Soft, non-tender, with normal bowel sounds. No distension or tympany. No guarding or rebound. No evidence of tenderness throughout. Back: No spinal tenderness. No costovertebral tenderness. Full range of motion. Skin: Warm, dry with normal turgor. Normal color with no rashes, no lesions, and no evidence of cellulitis. MS/ Extremity: Pulses equal, no cyanosis. Neurovascular intact. Full, normal range of motion. Neuro: Awake and alert, GCS 15, oriented to person, place, time, and situation. Cranial nerves II-XII grossly intact. Motor strength 5/5 in all extremities. Sensory grossly intact. Cerebellar exam normal. Normal gait. 15:27 ENT: Exam is negative for earache, ear discharge, TM abnormalities, nasal discharge, enlarged tonsils, pharyngitis, exudate, Dental exam: pain, that is moderate, specifically in the upper right second molar (#2) and upper right first molar (#3). Vital Signs: 15:10 BP 136 / 84; Pulse 75; Resp 20; Temp 97.4; Pulse Ox 100% ; Weight 89.81 kg; Height 5 sv ft. 7 in. (170.18 cm); Pain 8/10; 15:40 BP 123 / 90; Pulse 94; Resp 16 S; Pulse Ox 100% on R/A; ca1 15:50 Temp 97.2; ca1 16:28 BP 105 / 83; Pulse 67; Resp 16; Pulse Ox 100% on R/A; ca1 15:10 Body Mass Index 31.01 (89.81 kg, 170.18 cm) sv Procedures: 16:10 Nerve block: (dental) of left inferior alveolar nerve, Medication: Marcaine 0.5%, jr8 Amount: 4 mls were injected, Effect: the patient's symptoms are improved, moderately, Set up for procedure. Performed by Sanya DIGGS Patient tolerated well. MDM: 15:12 Patient medically screened. jr8 15:27 Data reviewed: vital signs, nurses notes, and as a result, I will discharge patient. jr8 Data interpreted: Pulse oximetry: on room air is 100 %. Interpretation: normal. Counseling: I had a detailed discussion with the patient and/or guardian regarding: the historical points, exam findings, and any diagnostic results supporting the discharge/admit diagnosis, the need for outpatient follow up, a dentist, to return to the emergency department if symptoms worsen or persist or if there are any questions or concerns that arise at home. Administered Medications: 15:30 Drug: Zofran 4 mg Route: PO; ca1 15:45 Follow up: Response: No adverse reaction; Pain is unchanged, physician notified ca1 15:35 Drug: Demerol 50 mg Route: IM; Site: right deltoid; ca1 16:16 Follow up: Response: No adverse reaction; Pain is decreased ca1 15:46 Drug: Phenergan 25 mg Route: PO; ca1 16:17 Follow up: Response: No adverse reaction; Nausea is decreased ca1 16:16 Drug: Marcaine (0.5 %) 1 vials {Note: by DONTAE Herrera.} Volume: 10 ml; Route: ca1 Infiltration; Disposition: 09/26 07:21 Co-signature as Attending Physician, Km Arambula MD I agree with the assessment and leo plan of care. Disposition: 09/25/18 16:02 Discharged to Home. Impression: Periapical abscess without sinus. - Condition is Stable. - Discharge Instructions: Dental Abscess, Dental Pain. - Prescriptions for ketorolac 10 mg Oral tablet - take 1 tablet by ORAL route every 4-6 hours As needed not to exceed 40 mg in 24hrs; 20 tablet. Amoxicillin 875 mg Oral Tablet - take 1 tablet by ORAL route every 12 hours for 10 days; 20 tablet. promethazine 25 mg Oral Tablet - take 1 tablet by ORAL route every 6 hours As needed; 20 tablet. - Medication Reconciliation Form, Thank You Letter, Antibiotic Education, Prescription Opioid Use form. - Follow up: Private Physician; When: 5 - 6 days; Reason: Recheck today's complaints, Continuance of care, Re-evaluation by your physician. - Problem is new. - Symptoms have improved. Signatures: Fabiana Carter RN RN Km Gamboa MD MD cha Roszak, Josh, PA PA jr8 Sheela Zhang RN RN ca1 Corrections: (The following items were deleted from the chart) 09/25 16:34 16:02 09/25/2018 16:02 Discharged to Home. Impression: Periapical abscess without ca1 sinus. Condition is Stable. Discharge Instructions: Dental Abscess, Dental Pain. Prescriptions for Augmentin 875-125 mg Oral Tablet - take 1 tablet by ORAL route every 12 hours for 10 days; 20 tablet. and Forms are Medication Reconciliation Form, Thank You Letter, Antibiotic Education, Prescription Opioid Use. Follow up: Private Physician; When: 5 - 6 days; Reason: Recheck today's complaints, Continuance of care, Re-evaluation by your physician. Problem is new. Symptoms have improved. jr8
[2018-09-25] MEDS ORDERED: BUPIVACAINE 0.5% PF 10 ML VIAL ONE (16:25)
[2018-09-25 17:13] VITALS: O2SAT 100
[2018-09-25 17:15] VITALS: TEMP 97.2
[2018-09-25 17:16] VITALS: BP 105/83
== END 2018-09-25 16:34 | disposition home or self-care (01) ==
LOC: ER 15:04
DX: K04.7 Periapical abscess without sinus (principal); Z72.0 Tobacco use; Z88.5 Allergy status to narcotic agent; Z91.013 Allergy to seafood
CPT/HCPCS: 96372; 99284; J2175

== ENCOUNTER 2019-09-27 14:52 | Emergency (ER) | payer OTHER ==
[2019-09-27] MEDS ORDERED: METOCLOPRAMIDE 10 MG/2mL INJ ONE (15:49)
[2019-09-27 15:50] LABS: Absolute Lymphocytes (CBC) 2.6 K/uL (0.7-4.9); Basophils % 0.3 % (0-1.3); Hematocrit 39.6 % (36.0-45.0); MPV 7.1 fL (7.6-11.3); Protime INR 0.96; RBC Red Blood Cell Count 4.48 M/uL (3.86-4.86)
[2019-09-27] MEDS ORDERED: MECLIZINE HCL 12.5 MG TAB ONE (15:50)
[2019-09-27] MEDS ORDERED: NA CHLORIDE 0.9% 1,000 ML ONE (15:50)
[2019-09-27 16:08] LABS: ALT/SGPT 53 U/L (12-78); AST/SGOT 39 U/L (15-37); Albumin 3.5 g/dL (3.4-5.0); Alkaline Phosphatase 52 U/L (45-117); BUN Blood Urea Nitrogen 12 mg/dL (7-18); Bicarbonate 25 mmol/L (21-32); Bilirubin Direct < 0.1 mg/dL (0-0.2); Bilirubin Total 0.3 mg/dL (0.2-1.0); Glucose Level 94 mg/dL (74-106); Magnesium 2.1 mg/dL (1.8-2.4); NT PRO-BNP 22 pg/mL (<125); Potassium 4.1 mmol/L (3.5-5.1); Protein, Total 7.7 g/dL (6.4-8.2); Sodium Level 137 mmol/L (136-145); Troponin (Emerg Dept Use Only) < 0.02 ng/mL (0.0-0.045)
--- NOTE | 2019-09-27 16:19 | RAD REPORT ---
EXAM DESCRIPTION: CT - Head Brain Wo Cont - 09/27/2019 4:06 pm CLINICAL HISTORY: Headache;Dizziness COMPARISON: No comparisons TECHNIQUE: Axial 5 mm thick images of the head were obtained without IV contrast. All CT scans are performed using dose optimization technique as appropriate and may include automated exposure control or mA/KV adjustment according to patient size. FINDINGS: No intracranial hemorrhage, mass, edema or shift of mid-line structures. No acute infarcti on changes seen. No abnormal extra-axial fluid collections. Ventricles are normal. Mastoid air cells and visualized portions of the paranasal sinuses are clear. No acute bony findings. IMPRESSION: Negative non-contrast CT head examination.
--- NOTE | 2019-09-27 16:51 | RAD REPORT ---
EXAM DESCRIPTION: RAD - Chest Single View - 09/27/2019 4:24 pm CLINICAL HISTORY: CHEST PAIN COMPARISON: Two view chest January 2017 TECHNIQUE: AP portable chest image was obtained 09/27/2019 4:24 pm . FINDINGS: Lungs are clear. Heart and vasculature are normal. No measurable pleural effusion and no p neumothorax. No acute bony abnormality seen. No acute aortic findings suspected. IMPRESSION: No acute cardiopulmonary process.
--- NOTE | 2019-09-27 17:52 | EDPHYS ---
Physician Documentation [facility] Name: Renee Castellon Age: 44 yrs Sex: Female : 1975 Arrival Date: 09/27/2019 Time: 14:53 Bed 4 Private MD: Brendan Monaco ED Physician Emilio Cortez HPI: 09/26 15:30 This 44 yrs old Female presents to ER via Ambulatory with complaints of cp Dizziness, Chest Pain. 15:30 The patient presents with dizziness, feeling off balance. cp 15:30 Onset: The symptoms/episode began/occurred 3 day(s) ago. Associated signs and symptoms: cp Pertinent positives: headache, nausea, ringing in ears, decreased hearing and entire body tingling. , Pertinent negatives: focal weakness, shortness of breath, syncope. Patient's baseline: Neuro: alert and fully oriented, Motor: no deficits, Ambulation: walks without assistance, Speech: normal. Patient reports chest pain started today in mid chest. Pain described as pressure. Denies radiation. 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 - Social history:: Smoking status: Patient/guardian denies using tobacco, Stopped _ months ago 4. ROS: 15:35 Constitutional: Negative for body aches, chills, fever, poor PO intake. cp 15:35 Eyes: Negative for injury, pain, redness, and discharge. cp Exam: 15:40 Constitutional: The patient appears in no acute distress, alert, awake, cp non-diaphoretic, non-toxic, well developed, well nourished. 15:40 Head/Face: Normocephalic, atraumatic. cp 15:40 Eyes: Periorbital structures: appear normal, Pupils: equal, round, and reactive to light and accomodation, Extraocular movements: intact throughout, Conjunctiva: normal, no exudate, no injection, Sclera: no appreciated abnormality, Lids and lashes: appear normal, bilaterally. 15:40 ENT: External ear(s): are unremarkable, Ear canal(s): are normal, clear, TM's: bulging, is not appreciated, bilaterally, erythema, is not appreciated, bilaterally, Nose: is normal, Mouth: Lips: moist, Oral mucosa: pink and intact, moist, Posterior pharynx: is normal, airway is patent, no erythema, no exudate. 15:40 Neck: ROM/movement: is normal, is supple, without pain, no range of motions limitations, no nuchal rigidity. 15:40 Chest/axilla: Inspection: normal, Palpation: is normal, no crepitus, no tenderness. 15:40 Cardiovascular: Rate: normal, Rhythm: regular, Heart sounds: murmur, not appreciated, Edema: is not appreciated, JVD: is not appreciated. 15:40 Respiratory: the patient does not display signs of respiratory distress, Respirations: normal, no use of accessory muscles, no retractions, labored breathing, is not present, Breath sounds: are clear throughout, no decreased breath sounds, no stridor, no wheezing. 15:40 Abdomen/GI: Inspection: abdomen appears normal, Palpation: abdomen is soft and non-tender, in all quadrants. 15:40 Back: pain, is absent, ROM is normal. 15:40 Neuro: Orientation: to person, place \T\ time. Mentation: is normal, Cerebellar function: Romberg testing is negative, normal finger to nose testing, heel to mathews testing is normal, Motor: moves all fours, strength is normal, Sensation: is normal, Gait: is steady, at a normal pace, without difficulty. 17:53 ECG was reviewed by the Attending Physician. kdr Vital Signs: 15:07 BP 129 / 87; Pulse 96; Resp 15 S; Temp 98.3(O); Pulse Ox 99% on R/A; Weight 96.62 kg ca1 (R); Height 5 ft. 7 in. (170.18 cm) (R); 15:34 BP 122 / 82; Pulse 89; Resp 15; Pulse Ox 99% ; Pain 5/10; jl7 16:48 BP 130 / 79 Supine; Pulse 88; mt 16:48 BP 126 / 90 Sitting; Pulse 90; mt 16:48 BP 119 / 89 Standing; Pulse 92; mt 17:25 BP 123 / 90; Pulse 70; Resp 15; Pulse Ox 100% ; jl7 15:07 Body Mass Index 33.36 (96.62 kg, 170.18 cm) ca1 MDM: 15:37 Patient medically screened. cp 15:45 Differential diagnosis: cardiac arrhythmia, hypovolemia, idiopathic dizziness, cp , TIA, vertigo. 17:50 Data reviewed: vital signs, nurses notes, lab test result(s), EKG, radiologic studies, cp CT scan, plain films. 17:50 Test interpretation: by ED physician or midlevel provider: ECG. Counseling: I had a cp detailed discussion with the patient and/or guardian regarding: the historical points, exam findings, and any diagnostic results supporting the discharge/admit diagnosis, lab results, radiology results, the need for outpatient follow up, a family practitioner, to return to the emergency department if symptoms worsen or persist or if there are any questions or concerns that arise at home. Response to treatment: the patient's symptoms have markedly improved after treatment, Patient dizziness and chest pain resolved with meds, and as a result, I will discharge patient. 09/26 15:28 Order name: Basic Metabolic Panel; Complete Time: 16: [facility] 09/26 16:10 Interpretation: Normal except: GFR 76. 09/26 15:28 Order name: CBC with Diff; Complete Time: 16: [facility] 09/26 16:10 Interpretation: Normal except: MPV 7.1. 09/26 15:28 Order name: LFT's; Complete Time: 16: [facility] 09/26 16:10 Interpretation: Normal except: AST 39; GLOB 4.2; A/G 0.8. 09/26 15:28 Order name: Magnesium; Complete Time: 16: [facility] 09/26 15:28 Order name: NT PRO-BNP; Complete Time: 16: [facility] 09/26 15:28 Order name: PT-INR; Complete Time: 16: [facility] 09/26 15:21 Order name: EKG Electrocardiogram; Complete Time: 17:26 EDAK 09/26 15:28 Order name: Troponin (emerg Dept Use Only); Complete Time: 16: [facility] 09/26 16:10 Interpretation: Within normal limits: TROPED < 0.02. 09/26 15:28 Order name: XRAY Chest (1 view); Complete Time: 17:04 [facility] 09/26 17:04 Interpretation: Report review. 09/26 15:36 Order name: Glucose, Ancillary Testing; Complete Time: 16:09 EDMS 09/26 15:39 Order name: CT Head Brain wo Cont; Complete Time: 17:04 09/26 17:05 Interpretation: Report reviewed. 09/26 15:28 Order name: Cardiac monitoring; Complete Time: 15:28 [facility] 09/26 15:28 Order name: EKG - Nurse/Tech; Complete Time: 15:28 [facility] 09/26 15:28 Order name: IV Saline Lock; Complete Time: 15:28 [facility] 09/26 15:28 Order name: Labs collected and sent; Complete Time: 15:28 [facility] 09/26 15:28 Order name: O2 Per Protocol; Complete Time: 15:28 [facility] 09/26 15:28 Order name: O2 Sat Monitoring; Complete Time: 15:28 [facility] 09/26 15:43 Order name: Orthostatics; Complete Time: 16:49 EC:53 Rate is 85 beats/min. Rhythm is regular, Normal Sinus Rhythm with No ectopy. QRS Nunda kdr is Normal. Left axis deviation noted. FL interval is normal. QRS interval is normal. QT interval is normal. No Q waves. Clinical impression: NSR w/ Non-specific ST/T Changes. Administered Medications: 15:45 Drug: Meclizine 25 mg Route: PO; 7 16:51 Follow up: Response: No adverse reaction; Marked relief of symptoms [facility] 15:46 Drug: Reglan 10 mg Route: IVP; Site: left antecubital; jl7 16:15 Follow up: Response: No adverse reaction; Nausea is decreased jl7 Disposition: 09/27 07:04 Co-signature as Attending Physician, Emilio Cortez MD I agree with the assessment and kdr plan of care. Disposition: 09/27/19 17:50 Discharged to Home. Impression: Dizziness and giddiness, Other chest pain. - Condition is Stable. - Discharge Instructions: Nonspecific Chest Pain, Dizziness. - Prescriptions for Meclizine 25 mg Oral Tablet - take 1 tablet by ORAL route every 8 hours As needed; 30 tablet. Zofran 4 mg Oral Tablet - take 1 tablet by ORAL route every 12 hours As needed; 20 tablet. - Medication Reconciliation Form, Thank You Letter, Antibiotic Education, Prescription Opioid Use form. - Follow up: Brendan Monaco MD; When: 2 - 3 days; Reason: Recheck today's complaints. - Problem is new. - Symptoms have improved. Signatures: Dispatcher [employer] EDMS Emilio Cortez MD MD kdr Km Hernandez PA PA cp Cameron Del Cid RN RN jl7 Sheela Zhang RN RN ca1 Corrections: (The following items were deleted from the chart) 09/26 18:04 17:51 09/27/2019 17:50 Discharged to Home. Impression: Dizziness and giddiness; Other jl7 chest pain. Condition is Stable. Forms are Medication Reconciliation Form, Thank You Letter, Antibiotic Education, Prescription Opioid Use. Follow up: Brendan Monaco; When: 2 - 3 days; Reason: Recheck today's complaints. Problem is new. Symptoms have improved. 09/27 09:53 09/26 15:20 ECG was reviewed by the Attending Physician. [facility] 09/27 09:53 09/26 15:20 Rate is 85 beats/min. Rhythm is regular. FL interval is normal. QRS cp interval is normal. QT interval is normal. Interpreted by me. Reviewed by me. cp
--- NOTE | 2019-09-27 17:52 | ER ---
Nurse's Notes [facility] Name: Renee Castellon Age: 44 yrs Sex: Female : 1975 Arrival Date: 09/27/2019 Time: 14:53 Bed 4 Private MD: Brendan Monaco Diagnosis: Dizziness and giddiness;Other chest pain Presentation: 09/26 15:07 Chief complaint: Patient states: Chest pain started 1-1.5 hrs ago. Dizzy and ca1 lightheaded since Wednesday. Tingling of face since yesterday, tingling all over and nausea today. Denies hx of heart conditions. Coronavirus screen: Patient denies a cough. Patient denies shortness of breath or difficulty breathing. Patient denies measured and/or subjective temperature greater than 100.4F prior to today's visit. Patient denies travel on a cruise ship or to a country the [facility] currently lists as an affected area. Patient denies contact with known and/or suspected case of COVID-19. Proceed with normal triage. Ebola Screen: Patient negative for fever greater than or equal to 101.5 degrees Fahrenheit, and additional compatible Ebola Virus Disease symptoms Patient denies exposure to infectious person. Patient denies travel to an Ebola-affected area in the 21 days before illness onset. No symptoms or risks identified at this time. Initial Sepsis Screen: Does the patient meet any 2 criteria? No. Patient's initial sepsis screen is negative. Does the patient have a suspected source of infection? No. Patient's initial sepsis screen is negative. Risk Assessment: Do you want to hurt yourself or someone else? Patient reports no desire to harm self or others. Onset of symptoms was September 27, 2019. 15:07 Method Of Arrival: Ambulatory ca1 15:07 Acuity: MICH 3 ca1 15:26 Care prior to arrival: None. 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 - Social history:: Smoking status: Patient/guardian denies using tobacco, Stopped _ months ago 4. Screenin:26 Abuse screen: Denies threats or abuse. Denies injuries from another. Nutritional jl7 screening: No deficits noted. Tuberculosis screening: No symptoms or risk factors identified. Fall Risk IV access (20 points). Total Brito Fall Scale indicates No Risk (0-24 pts). Assessment: 15:34 General: Appears in no apparent distress. uncomfortable, Behavior is calm, cooperative, jl7 appropriate for age, anxious. Pain: Complains of pain in anterior aspect of left upper chest Pain radiates to back Pain currently is 5 out of 10 on a pain scale. Quality of pain is described as stabbing, Pain began 4 hours ago. Is intermittent. Neuro: Level of Consciousness is awake, alert, obeys commands, Oriented to person, place, time, situation, Reports dizziness, headache. Cardiovascular: Reports nausea, Heart tones present Patient's skin is warm and dry. Respiratory: Airway is patent Respiratory effort is even, unlabored, Respiratory pattern is regular, symmetrical. GI: Reports nausea. Derm: Skin is pink, warm \T\ dry. 16:50 Reassessment: Patient appears in no apparent distress at this time. Patient and/or jl7 family updated on plan of care and expected duration. Pain level reassessed. Patient is alert, oriented x 3, equal unlabored respirations, skin warm/dry/pink. Patient states feeling better. Patient states symptoms have improved. Vital Signs: 15:07 BP 129 / 87; Pulse 96; Resp 15 S; Temp 98.3(O); Pulse Ox 99% on R/A; Weight 96.62 kg ca1 (R); Height 5 ft. 7 in. (170.18 cm) (R); 15:34 BP 122 / 82; Pulse 89; Resp 15; Pulse Ox 99% ; Pain 5/10; jl7 16:48 BP 130 / 79 Supine; Pulse 88; mt 16:48 BP 126 / 90 Sitting; Pulse 90; mt 16:48 BP 119 / 89 Standing; Pulse 92; mt 17:25 BP 123 / 90; Pulse 70; Resp 15; Pulse Ox 100% ; jl7 15:07 Body Mass Index 33.36 (96.62 kg, 170.18 cm) ca1 ED Course: 14:53 Patient arrived in ED. ag5 14:54 Brendan Monaco MD is Private Physician. ag5 15:07 Cameron Del Cid RN is Primary Nurse. jl7 15:10 Triage completed. ca1 15:11 Arm band placed on right wrist. ca1 15:26 Patient has correct armband on for positive identification. Placed in gown. Bed in low jl7 position. Call light in reach. Side rails up X2. cafeteria monitor on. Pulse ox on. NIBP on. Warm blanket given. 15:26 Initial lab(s) drawn, by me, sent to lab. EKG done, by ED staff, reviewed by Cameron Del Cid RN. Inserted saline lock: 20 gauge in left antecubital area, using aseptic technique. Blood collected. Patient maintains SpO2 saturation greater than 95% on room air. 15:30 Km Hernandez PA is PHCP. cp 15:30 Emilio Cortez MD is Attending Physician. cp 16:07 CT Head Brain wo Cont In Process Unspecified. EDMS 16:24 XRAY Chest (1 view) In Process Unspecified. EDMS 17:50 Brendan Monaco MD is Referral Physician. cp 18:03 No provider procedures requiring assistance completed. IV discontinued, intact, jl7 bleeding controlled, No redness/swelling at site. Pressure dressing applied. Administered Medications: 15:45 Drug: Meclizine 25 mg Route: PO; jl7 16:51 Follow up: Response: No adverse reaction; Marked relief of symptoms jl7 15:46 Drug: Reglan 10 mg Route: IVP; Site: left antecubital; jl7 16:15 Follow up: Response: No adverse reaction; Nausea is decreased jl7 Outcome: 17:50 Discharge ordered by . cp 18:03 Discharged to home ambulatory. jl7 18:03 Condition: stable 18:03 Discharge instructions given to patient, Instructed on discharge instructions, follow up and referral plans. medication usage, Demonstrated understanding of instructions, follow-up care, medications, Prescriptions given X 2. 18:04 Patient left the ED. jl7 Signatures: Dispatcher [employer] EDMS Km Hernandez PA PA cp Leal, Jahala, FRANCES RN jl7 Lexis Whitley mt, Cheryl, RN RN ca1 Maxim, John ag5
[2019-09-27 18:23] VITALS: TEMP 98.3
[2019-09-27 18:27] VITALS: BP 123/90; O2SAT 100
--- NOTE | 2019-09-28 07:33 | EKG ---
Test Date: 2019-09-27 Test Time: 15:13:18 Storyboard Artist: CHARLY Faust MEASUREMENT RESULTS: Intervals: Rate: 85 WI: 152 QRSD: 76 QT: 368 QTc: 437 [place]: P: 57 WI: 152 QRS: -15 T: 50 INTERPRETIVE STATEMENTS: Normal sinus rhythm Normal ECG Compared to ECG 02/17/2017 08:16:11 No significant changes Electronically Signed On 09-28-19 07:32:23 CDT by Kory Madera
== END 2019-09-27 18:04 | disposition home or self-care (01) ==
LOC: ER 14:52
DX: R07.9 Chest pain, unspecified (principal); K21.9 Gastro-esophageal reflux disease without esophagitis; Z88.5 Allergy status to narcotic agent; Z91.013 Allergy to seafood; Z91.048 Other nonmedicinal substance allergy status
CPT/HCPCS: 93005; 85025; 80048; 36415; 83735; 85610; 82947; 80076; 84484; 83880; 70450; 71045; 96374; 99285; J2765; J8597; J7030

== ENCOUNTER 2020-05-29 02:41 | Emergency (ER) | payer OTHER ==
--- OUTSIDE RECORDS SUMMARY | 2020-05-29 02:45 | XMS REPORT | Continuity of Care Document ---
:[address] [facility] t Address [address] [place] [address] [address] [place] [address] Care Team Providers Name Role Phone Lab, Fam Pob I Attending Clinician Unavailable Jose Gandara MD Attending Clinician Chun Oro MD Attending Clinician Problems This patient has no known problems. Allergies, Adverse Reactions, Alerts This patient has no known allergies or adverse reactions. Medications This patient has no known medications. Procedures This patient has no known procedures. Encounters Start End Encounter Admission Attending Care Care Encounter Source Date/Time Date/Time Type Type Clinicians Facility Department ID 2020-05-02 2020-05-02 Laboratory Lab, [facility] [id number] 17:20:29 17:40:29 Only Fam Pob I Health [id number] [place] [id number] Professio [phone] [place] [address] [address] 2020-03-13 2020-03-13 [place] [facility], [facility] [id number] 12:56:07 13:11:07 Visit Fam Pob I Health [id number] [place] [id number] Professio [phone] [place] [address] [address] 2020-03-10 2020-03-10 Laboratory Lab, [facility] [id number] 10:28:45 10:43:45 Only Fam Pob I Health [id number] [place] [id number] [facility] [phone] [place] [address] 2020-01-12 2020-01-12 Laboratory Lab, [facility] [id number] 14:26:11 14:46:11 Only Fam Pob I [facility] [id number] [place] [id number] [facility] [phone] [place] [address] 2019-11-28 2019-11-28 Emergency [place] [facility] [id number] 18:27:00 21:33:00 Fr[place]a Oro [place] [id number] [place] [id number] [place] [phone] 084 Results This patient has no known results.
[2020-05-29] MEDS ORDERED: MEPERIDINE HCL 25 MG/ML SYR ONE (03:39)
[2020-05-29] MEDS ORDERED: ONDANSETRON 4 MG (ODT) TAB ONE (03:43)
[2020-05-29 04:02] LABS: Urine Specific Gravity/Preg 1.015 (1.005-1.030)
[2020-05-29 04:12] LABS: Urine Bacteria <20 /HPF (<20); Urine RBC <5 /HPF (NONE SEEN)
--- NOTE | 2020-05-29 04:48 | EDPHYS ---
Physician Documentation [facility] Name: Renee Castellon Age: 44 yrs Sex: Female : 1975 Arrival Date: 05/29/2020 Time: 02:44 Bed 14 Private MD: ED Physician Bandar Hobbs HPI: 05/29 02:57 This 44 yrs old Female presents to ER via Unassigned with complaints of rn Abdominal Pain. 02:57 The patient presents with abdominal pain in the lower abdomen. Onset: The rn symptoms/episode began/occurred yesterday. The symptoms radiate to back. Associated signs and symptoms: Pertinent positives: dysuria, nausea, Pertinent negatives: blood in stools, fever. The symptoms are described as crampy, intermittent. Modifying factors: The symptoms are alleviated by nothing, the symptoms are aggravated by urinating. Severity of pain: At its worst the pain was mild in the emergency department the pain is unchanged. The patient has not experienced similar symptoms in the past. The patient has not recently seen a physician. 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 - Social history:: Smoking status: unknown. - Family history:: not pertinent. - Hospitalizations: : No recent hospitalization is reported. ROS: 02:57 Constitutional: Negative for fever, chills, and weight loss, Eyes: Negative for injury, rn pain, redness, and discharge, Neck: Negative for injury, pain, and swelling, Cardiovascular: Negative for chest pain, palpitations, and edema, Respiratory: Negative for shortness of breath, cough, wheezing, and pleuritic chest pain, Abdomen/GI: + suprapubic abd pain Back: + lower back pain : + dysuria MS/Extremity: Negative for injury and deformity, Skin: Negative for injury, rash, and discoloration, Neuro: Negative for headache, weakness, numbness, tingling, and seizure. Exam: 02:57 Constitutional: This is a well developed, well nourished patient who is awake, alert, rn and in no acute distress. Head/Face: Normocephalic, atraumatic. Eyes: Periorbital areas with no swelling, redness, or edema. Cardiovascular: Regular rate and rhythm. No pulse deficits. Respiratory: No increased work of breathing, no retractions or nasal flaring. Abdomen/GI: soft, mild suprapubic tenderness, no rebound or peritoneal signs Back: No spinal tenderness. No costovertebral tenderness. Full range of motion. Skin: Warm, dry MS/ Extremity: Pulses equal, no cyanosis. Neuro: Awake and alert, GCS 15 Vital Signs: 02:55 BP 131 / 93; Pulse 89; Resp 19; Temp 97; Pulse Ox 98% ; Weight 89.81 kg; Height 5 ft. 7 rr5 in. (170.18 cm); Pain 8/10; 03:30 BP 135 / 85; Pulse 80; Resp 17; Pulse Ox 98% ; rr5 04:20 BP 145 / 85; Pulse 79; Resp 17; Pulse Ox 98% ; rr5 05:02 BP 141 / 70; Pulse 85; Resp 17; Pulse Ox 98% ; rr5 02:55 Body Mass Index 31.01 (89.81 kg, 170.18 cm) rr5 MDM: 02:49 Patient medically screened. rn 04:45 Differential diagnosis: diverticulitis, non-specific abd pain, Pyelonephritis, rn Ureterolithiasis, urinary tract infection. Data reviewed: vital signs, nurses notes, lab test result(s), radiologic studies, CT scan, and as a result, I will discharge patient. Counseling: I had a detailed discussion with the patient and/or guardian regarding: the historical points, exam findings, and any diagnostic results supporting the discharge/admit diagnosis, lab results, radiology results, the need for outpatient follow up, to return to the emergency department if symptoms worsen or persist or if there are any questions or concerns that arise at home. Special discussion: I discussed with the patient/guardian in detail that at this point there is no indication for admission to the hospital. It is understood, however, that if the symptoms persist or worsen the patient needs to return immediately for re-evaluation. ED course: No acute findings on ct stone, + UTI, will dc home with pcp f/u and abx.. 05/29 02:55 Order name: Urine Culture rn 05/29 02:55 Order name: Urine Microscopic Only rn 05/29 02:55 Order name: Urine Culture EDMS 05/29 02:55 Order name: Urine Microscopic Only; Complete Time: 04:45 EDMS 05/29 03:10 Order name: Urine Dipstick--Ancillary (enter results); Complete Time: 04:45 ds4 05/29 03:10 Order name: Urine --Ancillary (enter results); Complete Time: 04:45 ds4 05/29 02:55 Order name: Urine Test (obtain specimen); Complete Time: 03:24 rn 05/29 02:55 Order name: Urine Dipstick-Ancillary (obtain specimen); Complete Time: 03:24 rn 05/29 03:20 Order name: CT Stone Protocol rn Administered Medications: 03:29 Drug: Demerol 25 mg {Note: rass 0.} Route: IM; Site: left deltoid; rr5 04:30 Follow up: Response: No adverse reaction; RASS: Alert and Calm (0) rr5 03:29 Drug: Zofran (Ondansetron) 4 mg Route: PO; rr5 04:30 Follow up: Response: No adverse reaction rr5 04:55 Drug: Cipro (ciprofloxacin) 500 mg Route: PO; rr5 05:03 Follow up: Response: Medication administered at discharge. rr5 Disposition: 05/29/20 04:47 Discharged to Home. Impression: Urinary tract infection, site not specified, Unspecified ovarian cysts. - Condition is Stable. - Discharge Instructions: Ovarian Cyst, Urinary Tract Infection, Adult. - Prescriptions for Cipro 500 mg Oral Tablet - take 1 tablet by ORAL route every 12 hours for 7 days; 14 tablet. Diclofenac Sodium 75 mg Oral Tablet Sustained Release - take 1 tablet by ORAL route 2 times per day; 30 tablet. - Medication Reconciliation Form, Thank You Letter, Antibiotic Education, Prescription Opioid Use, Work release form form. - Follow up: Private Physician; When: As needed; Reason: Recheck today's complaints, Re-evaluation by your physician. - Problem is new. - Symptoms have improved. Signatures: Dispatcher [employer] [place] HobbsBandar MD MD rn Roque, Raymond, RN RN rr5 Corrections: (The following items were deleted from the chart) 05:03 04:47 05/29/2020 04:47 Discharged to Home. Impression: Urinary tract infection, site rr5 not specified; Unspecified ovarian cysts. Condition is Stable. Forms are Medication Reconciliation Form, Thank You Letter, Antibiotic Education, Prescription Opioid Use. Follow up: Private Physician; When: As needed; Reason: Recheck today's complaints, Re-evaluation by your physician. Problem is new. Symptoms have improved. rn
--- NOTE | 2020-05-29 04:48 | ER ---
Nurse's Notes [facility] Name: Renee Castellon Age: 44 yrs Sex: Female : 1975 Arrival Date: 05/29/2020 Time: 02:44 Bed 14 Private MD: Diagnosis: Urinary tract infection, site not specified;Unspecified ovarian cysts Presentation: 05/29 02:55 Chief complaint: Patient states: couple of days ago the right side of my back started rr5 to hurt then goes on my lower abdomen, its like a crampy pain, increased urine frequency and feels nauseous. Coronavirus screen: Client denies travel out of the [place] in the last 14 days. At this time, the client does not indicate any symptoms associated with coronavirus-19. Ebola Screen: Patient negative for fever greater than or equal to 101.5 degrees Fahrenheit, and additional compatible Ebola Virus Disease symptoms Patient denies exposure to infectious person. Patient denies travel to an Ebola-affected area in the 21 days before illness onset. Initial Sepsis Screen: Does the patient meet any 2 criteria? No. Patient's initial sepsis screen is negative. Does the patient have a suspected source of infection? No. Patient's initial sepsis screen is negative. Risk Assessment: Do you want to hurt yourself or someone else? Patient reports no desire to harm self or others. Onset of symptoms was May 29, 2020. 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 - Social history:: Smoking status: unknown. - Family history:: not pertinent. - Hospitalizations: : No recent hospitalization is reported. Screenin:31 Abuse screen: Denies threats or abuse. Denies injuries from another. Nutritional rr5 screening: No deficits noted. Tuberculosis screening: No symptoms or risk factors identified. Fall Risk None identified. Total Brito Fall Scale indicates No Risk (0-24 pts). Assessment: 02:55 General: Appears in no apparent distress. uncomfortable, Behavior is calm, cooperative, rr5 appropriate for age. Pain: Complains of pain in right mid back Pain radiates to pelvis Pain currently is 8 out of 10 on a pain scale. Quality of pain is described as crampy, Pain began gradually, Is intermittent. 02:55 Neuro: Level of Consciousness is awake, alert, obeys commands, Oriented to person, rr5 place, time. Cardiovascular: Capillary refill < 3 seconds Patient's skin is warm and dry. Respiratory: Airway is patent Respiratory effort is even, unlabored, Respiratory pattern is regular, symmetrical. GI: Abdomen is round non-distended, Abd is soft and non tender Reports lower abdominal pain, nausea. : No signs and/or symptoms were reported regarding the genitourinary system. EENT: No signs and/or symptoms were reported regarding the EENT system. Derm: Skin is intact, is healthy with good turgor, Skin temperature is warm. Musculoskeletal: Circulation, motion, and sensation intact. Capillary refill < 3 seconds. 03:30 Reassessment: Patient appears in no apparent distress at this time. Patient is alert, rr5 oriented x 3, equal unlabored respirations, skin warm/dry/pink. back from CT scan. 05:00 Reassessment: Patient appears in no apparent distress at this time. Patient is alert, rr5 oriented x 3, equal unlabored respirations, skin warm/dry/pink. discharge instruction given and explained without complaints made. Vital Signs: 02:55 BP 131 / 93; Pulse 89; Resp 19; Temp 97; Pulse Ox 98% ; Weight 89.81 kg; Height 5 ft. 7 rr5 in. (170.18 cm); Pain 8/10; 03:30 BP 135 / 85; Pulse 80; Resp 17; Pulse Ox 98% ; rr5 04:20 BP 145 / 85; Pulse 79; Resp 17; Pulse Ox 98% ; rr5 05:02 BP 141 / 70; Pulse 85; Resp 17; Pulse Ox 98% ; rr5 02:55 Body Mass Index 31.01 (89.81 kg, 170.18 cm) rr5 ED Course: 02:44 Patient arrived in ED. ag3 02:49 Bandar Hobbs MD is Attending Physician. rn 02:55 Dane Jade, RN is Primary Nurse. rr5 02:59 Triage completed. rr5 03:00 Arm band placed on right wrist. rr5 03:00 Patient has correct armband on for positive identification. Bed in low position. Call rr5 light in reach. Pulse ox on. NIBP on. 03:10 Urine collected: clean catch specimen, clear. rr5 03:49 CT Stone Protocol In Process Unspecified. EDMS 05:02 No provider procedures requiring assistance completed. Patient did not have IV access rr5 during this emergency room visit. Administered Medications: 03:29 Drug: Demerol 25 mg {Note: rass 0.} Route: IM; Site: left deltoid; rr5 04:30 Follow up: Response: No adverse reaction; RASS: Alert and Calm (0) rr5 03:29 Drug: Zofran (Ondansetron) 4 mg Route: PO; rr5 04:30 Follow up: Response: No adverse reaction rr5 04:55 Drug: Cipro (ciprofloxacin) 500 mg Route: PO; rr5 05:03 Follow up: Response: Medication administered at discharge. rr5 Outcome: 04:47 Discharge ordered by . rn 05:02 Discharged to home ambulatory. rr5 05:02 Condition: stable 05:02 Discharge instructions given to patient, Instructed on discharge instructions, follow up and referral plans. medication usage, Demonstrated understanding of instructions, follow-up care, medications, Prescriptions given X 2. 05:03 Patient left the ED. rr5 Signatures: Dispatcher [employer] [facility] Bandar Hobbs MD MD rn Gomez, Alice ag3 Dane Jade, RN RN rr5
[2020-05-29] MEDS ORDERED: CIPROFLOXACIN HCL 500 MG TAB ONE (05:09)
[2020-05-29 05:32] VITALS: TEMP 97; O2SAT 98
[2020-05-29 05:44] VITALS: BP 141/70
--- NOTE | 2020-05-29 09:53 | RAD REPORT ---
EXAM DESCRIPTION: Stone Protocol 05/29/2020 3:59 AM CDT CLINICAL HISTORY: 44 years, Female, eval for stone, hematuria and dysuria COMPARISON: None. CLINICAL HISTORY: Multiple transaxial tomograms of the abdomen and pelvis were performed from the santino ng bases to the symphysis pubis 3 mm slice thickness at 3 mm, without administration of IV and oral c ontrast. Multiplanar reformats in the sagittal and coronal plane were generated and reviewed. An individualized dose optimization technique, Automated Exposure Control, was utilized for the perfo rmed procedure. FINDINGS: The lack of IV and oral contrast limits evaluation of solid organs, subtle lesions cannot be excluded. The lung bases demonstrate to be clear. Grossly the unopacified liver, pancreas, spleen and adrenal glands demonstrate to be within normal li mits, no significant focal lesions were identified. Surgical clips within the gallbladder fossa cor responding to previous cholecystectomy. There is no significant biliary duct dilatation. The kidneys demonstrate grossly unremarkable, no nephrolithiasis and/or hydronephrosis were identifie d. No focal masses were demonstrated. The ureters displays normal appearance with normal caliber, no hydroureter was seen. Grossly the unopacified stomach, small bowel and large bowel demonstrate to be within normal limits. There is no evidence for bowel dilatation and/or free air. The appendix was not visualized although n o significant inflammatory changes are seen within the right lower quadrant.. The urinary bladder demonstrate to be within normal limits. The uterus is absent. There is a left ova rafael cyst measuring 3.2 x 2.5 cm. The aorta demonstrate to be within normal limits. There is no ret roperitoneal lymphadenopathy. There is no evidence for ascites. The rest of the soft tissue demonst rate to be grossly unremarkable. IMPRESSION: No evidence for nephrolithiasis and/or hydronephrosis. Status post cholecystectomy and hysterectomy. 3.2 cm probably benign ovarian cyst. Recommend follow-up pelvic US in 6-12 weeks. Reference: J Am C oll Radiol 2013;10:675-681. Electronically signed by: Tian Peraza MD 05/29/2020 4:02 AM CDT Due to temporary technical issues with the PACS/Fluency reporting system, reports are being signed by the in house radiologist without review as a courtesy to ensure prompt reporting. The interpreting r adiologist is fully responsible for the content of the report.
[2020-06-05 12:01] LABS: Urine Blood 2+ (Negative); Urine Glucose Negative (Negative); Urine Protein Negative (Negative); Urine Specific Gravity 1.015 (1.005-1.030)
== END 2020-05-29 05:03 | disposition home or self-care (01) ==
LOC: ER 02:41
DX: N39.0 Urinary tract infection, site not specified (principal); N83.209 Unspecified ovarian cyst, unspecified side; Z88.5 Allergy status to narcotic agent; Z91.013 Allergy to seafood; Z91.048 Other nonmedicinal substance allergy status
CPT/HCPCS: 87088; 87086; 81025; 76377; 74176; J2175; 81003; 81015; 87077; 87186; 96372; 99284

== ENCOUNTER 2021-03-10 05:36 | Emergency (ER) | payer OTHER ==
--- OUTSIDE RECORDS SUMMARY | 2021-03-10 05:40 | XMS REPORT | Continuity of Care Document ---
:1975 Author Organization [facility] t Address [address] [place] [address] Care Team Providers Name Role Phone Babatunde Monaco Primary Care Physician Only, Db Test Attending Clinician Unavailable Clementina BROWN Attending Clinician CLEMENTINA Attending Clinician Unavailable Mukesh Noonan MD Attending Clinician CHIRAG Attending Clinician Unavailable Lab, Fam Pob I Attending Clinician Unavailable Chirag BROWN Attending Clinician Daniel SMALLS Attending Clinician DANIEL Attending Clinician Unavailable Babatunde PARADA Attending Clinician Unavailable Babatunde Franklin Attending Clinician Nigel Elizondo Attending Clinician Nigel SHUKLA Attending Clinician Unavailable Jose Magaña MD Attending Clinician Chun Oro MD Attending Clinician Payers Payer Name Policy Type Policy Number Effective Date Expiration Date S ource Problems Condition Condition Condition Status Onset Resolution Last Treating Co mments Source Name Details Category Date Date Treatment Clinician Date No known No known Disease Kelse y active active Seybold problems problems Allergies, Adverse Reactions, Alerts Allergy Allergy Status Severity Reaction(s) Onset Inactive Treating Comm ents Source Name Type Date Date Clinician IODINE DRUG [facility]: [address] Iodine Propensi Active Anaphylaxis Anaphylax Imani ty to 11-27 is Seybold adverse 00:00: despite reaction 00 steroid s pretreatm ent for CT with contrast; also shellfish anaphylax is NO KNOWN Drug Active Univers ALLERGIE Class ity of S [facility] Social History Social Habit Start Date Stop Date Quantity Comments Source Exposure to Not sure [facility] SARS-CoV-2 (event) Medica l Branch Sex Ass[birth year] At [birth year] Imani Se ybold 00:00:00 00:00:00 Smoking Status Start Date Stop Date Source Never smoked tobacco Imani Seyb old Unknown if ever smoked [facility] Medications Ordered Filled Start Stop Current Ordering Indication Dosage Frequency Signature Comments Components Source Medication Medication Date Date Medication? Clinician (SIG) Name Name Esomeprazol 2020-03 Yes 20mg Take 20 mg Imani e Magnesium 0-20 by mouth Seyb old 20 MG oral 10:41: every Delayed 38 morning Release (before Capsule breakfast) Famotidine 2020-03 Yes 20mg Take 20 mg K elsey (PEPCID) 20 0-20 by mouth 2 Se ybold MG oral 10:41: times tablet 38 daily Amoxicillin 2020-03 Yes [id number] 1{tbl} Take 1 Imani -Pot 0-20 tablet by Seybold Clavulanate 00:00: mouth 2 875-125 MG 00 times oral Tablet daily Trazodone 2020-03 Yes [id number] 50mg QD Take 1 K elsey HCl 50 MG 0-20 tablet (50 Seyb old oral Tablet 00:00: mg total) 00 by mouth nightly as needed for sleep ketorolac 2019- No 15mg 15 mg, Unive rs (TORADOL) 11-28 Slow IV ity of injection 05:00: 04:59 Push, Q6H, [place] 15 mg 00 :00 4 doses, Medical First dose Branch on Wed11/29/19 at 0000, Last dose on Wed11/29/19 at 1800, Routine
clergy member approving Restricted medication : MARYCHUY MAGAÑA proMETHazin 2020- No 25mg 25 mg, IV Univers e 11-28 Piggyback, ity of (PHENERGAN) 02:45: 01:41 [place] 25 [place] in 00 :00 dose, Tue Medica l NaCl 0.9% 11/28/19 at [facility] (NS) 50 mL 2144, 50 piggyback mL ondansetron 2019-0 2020- No 4mg 4 mg, Slow Univers (ZOFRAN 11-28 IV Push, ity of (PF)) 02:00: 01:04 ONCE, 1 [place] injection 4 00 :00 dose, Tue Med ical mg 11/28/19 at [place] 2100, CARLA pantoprazol 2019-0 2020- No 40mg 40 mg, IV Univers e 11-28 Piggyback, ity of (PROTONIX) 02:00: 01:18 ONCE, 1 Y[place] as 40 mg in 00 :00 dose, Tue Medica l NaCl 0.9% 11/28/19 at [facility] (NS) 100 mL 2099, 100 MINI-BAG mL FENTanyl PF 2019- 2020- No 50ug 50 mcg, Un becca (SUBLIMAZE 11-28 Slow IV ity o f (PF)) 02:00: 01:03 Push, [place] injection 00 :00 ONCE, 1 Medical 50 mcg dose, [facility] 11/28/19 at 2100, Routine ondansetron 2019-0 2020- No 4mg 4 mg, Slow Univers (ZOFRAN 11-28 IV Push, ity of (PF)) 00:45: 23:47 ONCE, 1 [place] injection 4 00 :00 dose, Tue Med ical mg 11/28/19 at [place] 194, CARLA morpHINE 2019-0 2020- No 4mg 4 mg, Slow Un becca injection 4 11-28 IV Push, ity of mg 00:45: 23:47 ONCE, 1 [place] 00 :00 dose, [facility] Medical 11/28/19 at Branch 194, STAT aspirin 2019-0 2020- No 325mg 325 mg, Unive rs tablet 325 11-27 Oral, ity of mg 23:45: 23:41 ONCE, 1 [place] 00 :00 dose, [facility] Medical 11/28/19 at Branch 1845, STAT esomeprazol 2020-0 Yes 20mg Take 20 mg Univers e (NEXIUM) 11-27 by mouth ity o f 20 mg 23:27: daily [place] capsule 23 before a Medical meal. Branch omeprazole 2020-0 Yes 40mg Take 40 mg U nivers 40 mg 9-29 by mouth ity of capsule 23:27: daily. [place] [address] Medical Branch famotidine 2020-0 Yes 20mg Take 20 mg U nivers (PEPCID) 20 9-29 by mouth 2 it y of mg tablet 23:27: (two) [place] 23 times Medical daily. Branch zolpidem 2020-0 Yes 10mg Take 10 mg Uni vers (AMBIEN) 10 9-29 by mouth ity of mg tablet 23:27: at bedtime [place] 23 as needed Medical for Branch Insomnia. esomeprazol 2020-0 Yes 20mg Take 20 mg Univers e (NEXIUM) 9-29 by mouth ity o f 20 mg 23:27: daily [place] capsule 23 before a Medical meal. Branch omeprazole 2020-0 Yes 40mg Take 40 mg U nivers 40 mg 9-29 by mouth ity of capsule 23:27: daily. [place] [address] Medical Branch famotidine 2020-0 Yes 20mg Take 20 mg U nivers (PEPCID) 20 9-29 by mouth 2 it y of mg tablet 23:27: (two) [place] 23 times Medical daily. Branch zolpidem 2020-0 Yes 10mg Take 10 mg Uni vers (AMBIEN) 10 9-29 by mouth ity of mg tablet 23:27: at [place]time [place] 23 as needed Medical for Branch Insomnia. esomeprazol 2020-0 Yes 20mg Take 20 mg Univers e (NEXIUM) 9-29 by mouth ity o f 20 mg 23:27: daily [place] capsule 23 before a Medical meal. Branch omeprazole 2020-0 Yes 40mg Take 40 mg U nivers 40 mg 9-29 by mouth ity of capsule 23:27: daily. [place] [address] Medical Branch famotidine 2020-0 Yes 20mg Take 20 mg U nivers (PEPCID) 20 9-29 by mouth 2 it y of mg tablet 23:27: (two) [place] 23 times Medical daily. Branch zolpidem 2020-0 Yes 10mg Take 10 mg Uni vers (AMBIEN) 10 9-29 by mouth ity of mg tablet 23:27: at bedtime [place] 23 as needed Medical for Branch Insomnia. esomeprazol 2020-0 Yes 20mg Take 20 mg Univers e (NEXIUM) 9-29 by mouth ity o f 20 mg 23:27: daily [place] capsule 23 before a Medical meal. Branch omeprazole 2020-0 Yes 40mg Take 40 mg U nivers 40 mg 9-29 by mouth ity of capsule 23:27: daily. [place] [address] Medical Branch famotidine 2020-0 Yes 20mg Take 20 mg U nivers (PEPCID) 20 9-29 by mouth 2 it y of mg tablet 23:27: (two) [place] 23 times Medical daily. Branch zolpidem 2020-0 Yes 10mg Take 10 mg Uni vers (AMBIEN) 10 9-29 by mouth ity of mg tablet 23:27: at [place]time [place] 23 as needed Medical for Branch Insomnia. esomeprazol 2020-0 Yes 20mg Take 20 mg Univers e (NEXIUM) 9-29 by mouth ity o f 20 mg 23:27: daily [place] capsule 23 before a Medical meal. Branch omeprazole 2020-0 Yes 40mg Take 40 mg U nivers 40 mg 9-29 by mouth ity of capsule 23:27: daily. [place] [address] Medical Branch famotidine 2020-0 Yes 20mg Take 20 mg U nivers (PEPCID) 20 9-29 by mouth 2 it y of mg tablet 23:27: (two) [place] 23 times Medical daily. Branch zolpidem 2020-0 Yes 10mg Take 10 mg Uni vers (AMBIEN) 10 9-29 by mouth ity of mg tablet 23:27: at bedtime [place] 23 as needed Medical for Branch Insomnia. esomeprazol 2020-0 Yes 20mg Take 20 mg Univers e (NEXIUM) 9-29 by mouth ity o f 20 mg 23:27: daily [place] capsule 23 before a Medical meal. Branch omeprazole 2020-0 Yes 40mg Take 40 mg U nivers 40 mg 9-29 by mouth ity of capsule 23:27: daily. [place] [address] Medical Branch famotidine 2020-0 Yes 20mg Take 20 mg U nivers (PEPCID) 20 9-29 by mouth 2 it y of mg tablet 23:27: (two) [place] 23 times Medical daily. Branch zolpidem 2020-0 Yes 10mg Take 10 mg Uni vers (AMBIEN) 10 9-29 by mouth ity of mg tablet 23:27: at bedtime [place] 23 as needed Medical for Branch Insomnia. esomeprazol 2020-0 Yes 20mg Take 20 mg Univers e (NEXIUM) 9-29 by mouth ity o f 20 mg 23:27: daily [place] capsule 23 before a Medical meal. Branch omeprazole 2020-0 Yes 40mg Take 40 mg U nivers 40 mg 9-29 by mouth ity of capsule 23:27: daily. [place] 23 Medical Branch famotidine 2020-0 Yes 20mg Take 20 mg U nivers (PEPCID) 20 9-29 by mouth 2 it y of mg tablet 23:27: (two) [place] 23 times Medical daily. Branch zolpidem 2020-0 Yes 10mg Take 10 mg Uni vers (AMBIEN) 10 9-29 by mouth ity of mg tablet 23:27: at bedtime [place] 23 as needed Medical for Branch Insomnia. esomeprazol 2020-0 Yes 20mg Take 20 mg Univers e (NEXIUM) 9-29 by mouth ity o f 20 mg 18:27: daily [place] capsule 23 before a Medical meal. Branch omeprazole 2020-0 Yes 40mg Take 40 mg U nivers 40 mg 9-29 by mouth ity of capsule 18:27: daily. [place] [address] Medical Branch famotidine 2020-0 Yes 20mg Take 20 mg U nivers (PEPCID) 20 9-29 by mouth 2 it y of mg tablet 18:27: (two) [place] 23 times Medical daily. Branch zolpidem 2020-0 Yes 10mg Take 10 mg Uni vers (AMBIEN) 10 9-29 by mouth ity of mg tablet 18:27: at bedtime [place] 23 as needed Medical for Branch Insomnia. traMADoL 2020-0 Yes [id number] 50mg Take 1 Univers (ULTRAM) 50 9-29 tablet by ity of mg tablet 00:00: mouth [place] 00 every 6 Medical (six) Branch hours as needed for Pain (scale 7-10). Indication s: acute pain proMETHazin 2020-0 Yes [id number] 25mg Take 1 Univers e 25 mg 9-29 tablet by ity of tablet 00:00: mouth [place] 00 every 6 Medical (six) Branch hours as needed for Nausea and Vomiting (N/V). traMADoL 2020-0 Yes [id number] 50mg Take 1 Univers (ULTRAM) 50 9-29 tablet by ity of mg tablet 00:00: mouth [place] 00 every 6 Medical (six) Branch hours as needed for Pain (scale 7-10). Indication s: acute pain proMETHazin 2020-0 Yes [id number] 25mg Take 1 Univers e 25 mg 9-29 tablet by ity of tablet 00:00: mouth [place] 00 every 6 Medical (six) Branch hours as needed for Nausea and Vomiting (N/V). traMADoL 2020-0 Yes [id number] 50mg Take 1 Univers (ULTRAM) 50 9-29 tablet by ity of mg tablet 00:00: mouth [place] 00 every 6 Medical (six) Branch hours as needed for Pain (scale 7-10). Indication s: acute pain proMETHazin 2020-0 Yes [id number] 25mg Take 1 Univers e 25 mg 9-29 tablet by ity of tablet 00:00: mouth [place] 00 every 6 Medical (six) Branch hours as needed for Nausea and Vomiting (N/V). traMADoL 2020-0 Yes [id number] 50mg Take 1 Univers (ULTRAM) 50 9-29 tablet by ity of mg tablet 00:00: mouth [place] 00 every 6 Medical (six) Branch hours as needed for Pain (scale 7-10). Indication s: acute pain proMETHazin 2020-0 Yes [id number] 25mg Take 1 Univers e 25 mg 9-29 tablet by ity of tablet 00:00: mouth [place] 00 every 6 Medical (six) Branch hours as needed for Nausea and Vomiting (N/V). traMADoL 2020-0 Yes [id number] 50mg Take 1 Univers (ULTRAM) 50 9-29 tablet by ity of mg tablet 00:00: mouth [place] 00 every 6 Medical (six) Branch hours as needed for Pain (scale 7-10). Indication s: acute pain proMETHazin 2020-0 Yes [id number] 25mg Take 1 Univers e 25 mg 9-29 tablet by ity of tablet 00:00: mouth [place] 00 every 6 Medical (six) Branch hours as needed for Nausea and Vomiting (N/V). traMADoL 2020-0 Yes [id number] 50mg Take 1 Univers (ULTRAM) 50 9-29 tablet by ity of mg tablet 00:00: mouth [place] 00 every 6 Medical (six) Branch hours as needed for Pain (scale 7-10). Indication s: acute pain proMETHazin 2020-0 Yes [id number] 25mg Take 1 Univers e 25 mg 9-29 tablet by ity of tablet 00:00: mouth [place] 00 every 6 Medical (six) Branch hours as needed for Nausea and Vomiting (N/V). traMADoL 2020-0 Yes [id number] 50mg Take 1 Univers (ULTRAM) 50 9-29 tablet by ity of mg tablet 00:00: mouth [place] 00 every 6 Medical (six) Branch hours as needed for Pain (scale 7-10). Indication s: acute pain proMETHazin 2020-0 Yes [id number] 25mg Take 1 Univers e 25 mg 9-29 tablet by ity of tablet 00:00: mouth [place] 00 every 6 Medical (six) Branch hours as needed for Nausea and Vomiting (N/V). traMADoL 2020-0 Yes [id number] 50mg Take 1 Univers (ULTRAM) 50 9-29 tablet by ity of mg tablet 00:00: mouth [place] 00 every 6 Medical (six) Branch hours as needed for Pain (scale 7-10). Indication s: acute pain proMETHazin 2019-0 Yes [id number] 25mg Take 1 Univers e 25 mg 9-29 tablet by ity of tablet 00:00: mouth [place] 00 every 6 Medical (six) Branch hours as needed for Nausea and Vomiting (N/V). Immunizations Ordered Immunization Filled Immunization Date Status Commen ts Source Name Name Tdap- (Boostrix, 2016-01-29 Completed Imani delgado Adacel) 00:00:00 Vital Signs Vital Name Observation Time Observation Value Comments Source Systolic blood 2020-12-18 15:39:00 120 mm[Hg] Imani Damico pressure Diastolic blood 2020-12-18 15:39:00 74 mm[Hg] Julián Kohlerold pressure Heart rate 2020-12-18 15:39:00 83 /min Imani delgado Body temperature 2020-12-18 15:39:00 37.06 Alana Macarena Damico Respiratory rate 2020-12-18 15:39:00 15 /min Macarena Damico Body height 2020-12-18 15:39:00 170.2 cm Imani delgado Body weight 2020-12-18 15:39:00 95.709 kg Imani delgado BMI 2020-12-18 15:39:00 33.05 kg/m2 Imani woodruffbomariana Oxygen saturation in 2020-12-18 15:39:00 99 /min Imani ramsesestevan Arterial blood by Pulse oximetry Heart rate 2020-01-12 17:00:00 83 /min [facility] [place] [facility] Respiratory rate 2020-01-12 17:00:00 19 /min [facility] [place] [facility] Oxygen saturation in 2020-01-12 17:00:00 97 /min University of Arterial blood by [place] [facility]i estefania Pulse oximetry Branch Heart rate 2020-01-12 17:00:00 83 /min [facility] [place] [facility] Respiratory rate 2020-01-12 17:00:00 19 /min Univ [facility] [place] [facility] Oxygen saturation in 2020-01-12 17:00:00 97 /min University of Arterial blood by [facility] Pulse oximetry Branch Systolic blood 2019-11-29 01:00:00 135 mm[Hg] Univer sity of pressure [place] [facility] Diastolic blood 2019-11-29 01:00:00 81 mm[Hg] Unive rsity of pressure [place] [facility] Heart rate 2019-11-29 01:00:00 72 /min [facility] [place] [facility] Respiratory rate 2019-11-29 01:00:00 20 /min [facility] [place] [facility] Oxygen saturation in 2019-11-29 01:00:00 98 /min University of Arterial blood by [facility] Pulse oximetry Branch Body temperature 2019-11-28 23:21:00 37.56 Alana Univ [facility] [place] [facility] Body height 2019-11-28 23:21:00 170.2 cm [facility] [place] [facility] Body weight 2019-11-28 23:21:00 90.719 kg [facility] [place] [facility] BMI 2019-11-28 23:21:00 31.32 kg/m2 [facility] [place] [facility] Systolic blood 2019-11-29 01:00:00 135 mm[Hg] Univer sity of pressure [place] [facility] Diastolic blood 2019-11-29 01:00:00 81 mm[Hg] Unive rsity of pressure [place] [facility] Heart rate 2019-11-29 01:00:00 72 /min [facility]i [facility] [place] [facility] Respiratory rate 2019-11-29 01:00:00 20 /min Univ [facility] [place] [facility] Oxygen saturation in 2019-11-29 01:00:00 98 /min [facility] Arterial blood by [facility] Pulse oximetry Branch Body temperature 2019-11-28 23:21:00 37.56 Alana [facility] Body height 2019-11-28 23:21:00 170.2 cm [facility] Body weight 2019-11-28 23:21:00 90.719 kg [facility] BMI 2019-11-28 23:21:00 31.32 kg/m2 [facility] Procedures Procedure Date / Time Performing Clinician Source Performed XR CHEST 2 VW 2019-11-28 23:58:38 Marychuy Magaña [facility] COVID-19 (ID NOW RAPID 2019-11-28 23:41:[address] [facility] TESTING) Medical Branch LIPASE 2019-11-28 23:36:00 Marychuy Magaña [facility] TEST, SERUM 2019-11-28 23:36:00 Marychuy Magaña [facility] TROPONIN I 2019-11-28 23:36:00 Marychuy Magaña [facility] HEPATIC FUNCTION PANEL 2019-11-28 23:36:[address] [facility] ([id number]) (ALB,T.PRO,BILI [facility] T,BU/BC,ALT,AST,ALK PHOS) BASIC METABOLIC PANEL 2019-11-28 23:36:00 Marychuy Magaña [facility] (NA, K, CL, CO2, [facility] GLUCOSE, BUN, CREATININE, CA) CBC WITH DIFF 2019-11-28 23:36:00 Marychuy Magaña [facility] PROTHROMBIN TIME / INR 2019-11-28 23:36:00 Marychuy Magaña [facility] ACTIVATED PARTIAL 2019-11-28 23:36:00 Marychuy Magaña [facility] THRMPLAS [facility] EKG-12 LEAD 2019-11-28 23:31:41 Marychuy Magaña [facility] NOTICE OF PRIVACY 2019-11-28 22:55:14 Doctor Unassigned, No [facility] PRACTICES Name [facility] Branch CONSENT/REFUSAL FOR 2019-11-28 22:53:30 Doctor Unassigned, No [facility] DIAGNOSIS AND TREATMENT Name Medical [place] Encounters Start End Encounter Admission Attending Care Care Encounter Source Date/Time Date/Time Type Type Clinicians Facility Department ID 2020-12-18 2020-12-18 Laboratory Only, Ang Db Test [facility] 1.2.8 40.114 [id number] Univers 12:36:22 12:51:22 Only Elena Harvey [id number] ity of [place] [id number] Yaron as Jun?Blea [phone] [place] dical hugoey [address] [place] [facility] 2020-12-18 2020-12-18 Outpatient [facility] [id number] Univers 12:30:00 12:30:00 [id number] ity [facility] 2020-12-18 2020-12-18 Outpatient R CLEMENTINA [facility] [id number] Univers 12:30:00 12:30:00 ELENA jennie o f [facility] 2020-12-18 2020-12-18 Office Fernando Noonan 1.2.840.114 [id number] Imani 10:32:34 11:02:34 Visit Nataly Lauri [id number] Se darryn Mukesh [id number] [id number] 2020-06-16 2020-06-16 Outpatient [facility] [id number] Univers 10:40:00 10:40:00 [id number] [facility] 2020-06-16 2020-06-16 Outpatient R CHIRAG [facility] [id number] Univers 10:40:00 10:40:00 [facility] 2020-06-16 Laboratory Lab, Adc Fam Pob I [facility] 1.2. 840.114 [id number] Univers 10:18:56 10:38:56 Only Chirag Pavithra [facility] [id number] ity of [place] [id number] Yaron as Professio [phone] [place] sumi lynne 0[address] [place] Office Building One 2020-06-09 2020-06-09 Outpatient [facility] [id number] Univers 10:40:00 10:40:00 [id number] ity [facility] 2020-06-09 2020-06-09 Outpatient R CHIRAG [facility] [id number] Univers 10:40:00 10:40:00 PAVITHRA ity [facility] 2020-06-09 2020-06-09 Laboratory Lab, [facility] I [facility] 1.2. 840.114 [id number] Univers 10:18:04 10:38:04 Only Pavithra Hargrove [facility] [id number] ity of [place] [id number] Yaron as Professio [phone] [place] dicne nal [address] [place] [address] Office Building One 2020-05-02 2020-05-02 Laboratory Lab, [facility] 1.2.840.114 [id number] 17:20:29 17:40:29 Only [facility] I Health [id number] [place] [id number] Professio [phone] nal [facility] Office Building One 2020-05-02 2020-05-02 Laboratory Lab, [facility] I [facility] 1.2. 840.114 [id number] Univers 17:20:29 17:40:29 Only Sahra Sanchez [facility] [id number] ity of [place] [id number] Yaron as Professio [phone] [facility] nal [address] [place] [address] Office Building One 2020-05-02 2020-05-02 Outpatient R DANIEL [facility] [id number] Univers 17:40:00 17:40:00 SAHRA ity [facility] 2020-05-02 2020-05-02 Outpatient R [facility] [id number] Univers 17:40:00 17:40:00 [id number] ity [facility] 2020-03-13 2020-03-13 Outpatient [facility] [id number] Univers 13:15:00 13:15:00 [id number] ity [facility] 2020-03-13 2020-03-13 Outpatient R MONROE [facility] [id number] Univers 13:15:00 13:15:00 KELLIE sewell o f [facility] 2020-03-13 2020-03-13 [employer] Lab, [facility] Fam Pob I [facility] 1.2. 840.114 [id number] Univers 12:56:07 13:11:07 Visit Kellie Parada Health [id number] ity of [place] [id number] Yaron as Professio [phone] [address] Office [facility] One 2020-03-13 2020-03-13 [employer] Lab, [facility] 1.2.840.114 [id number] 12:56:07 13:11:07 Visit Fam Pob I Health [id number] [place] [id number] Professio [phone] [place] [address] Office [facility] One 2020-03-12 2020-03-12 Outpatient R [facility] [id number] Univers 15:30:00 15:30:00 [id number] [facility] 2020-03-10 2020-03-10 Outpatient [facility] [id number] Univers 10:55:00 10:55:00 [id number] [facility] 2020-03-10 2020-03-10 Outpatient R CHIRAG [facility] [id number] Univers 10:55:00 10:55:00 PAVITHRA [facility] 2020-03-10 2020-03-10 Laboratory Lab, [facility] Pob I [facility] 1.2. 840.114 [id number] Univers 10:28:45 10:43:45 Only Pavithra Hargrove [facility] [id number] ity of [place] [id number] Yaron as Professio [phone] [address] Office [facility] One 2020-03-10 2020-03-10 Laboratory Lab, [facility] 1.2.840.114 [id number] 10:28:45 10:43:45 Only Fam Pob I Health [id number] [place] [id number] Professio [phone] nal [facility] Office Building One 2020-01-12 2020-01-12 Laboratory Lab, [facility] Fam Pob I [facility] 1.2. 840.114 [id number] Univers 14:26:11 14:46:11 Only Dulce Shukla Health [id number] ity of [place] [id number] Yaron as Professio [phone] Me dical [facility] 044 [place] Office Building One 2020-01-12 2020-01-12 Laboratory Lab, [facility] 1.2.840.114 [id number] 14:26:11 14:46:11 Only Fam Pob I Health [id number] [place] [id number] Professio [phone] nal [facility] Office Building One 2020-01-12 2020-01-12 Outpatient R VAZQUEZ [facility] [id number] Univers 14:40:00 14:40:00 DULCE [facility] 2019-11-28 2019-11-28 Emergency Marychuy Magaña [facility] 1.2.84 0.114 [id number] Univers 18:27:00 21:33:00 Fransisca Oro [place] [id number] ity of [place] [id number] [place] [phone] [address] 2019-11-28 2019-11-28 Emergency Marychuy Magaña [facility] 1.2.84 0.114 [id number] 18:27:00 21:33:00 Fransisca Oro [id number] [place] [id number] [place] [phone] [facility] 2019-11-28 2019-11-28 Emergency X [facility] ERT [id number] Univers 17:52:00 17:52:00 [facility] Results Test Description Test Time Test Comments Results Result Sourc e Comments XR CHEST 2 VW 2019-11-02 Impression: No acute U niversity of 0 abnormalities [place] Medic al 00:35:04 evident. RL: [id number] End Bran ch of Report Ordering Physician: ?MARYCHUY MAGAÑA History: ?Chest pain and mid thoracic pain. Technique: Chest, 2 views Comparison: None Findings: ? The lungs are clear. No pleural effusions are evident. Heart size isnormal. The superior mediastinal silhouette is unremarkable for age andprojection. No acute bony abnormalities are evident. Surgical clips areseen within the upper abdomen. [facility], Radiant Results Inft User - 11/28/2019 7:36 PM CDTOrdering Physician: MARYCHUY MAGAÑAHistory: Chest pain and mid thoracic pain.Technique: Chest, 2 viewsComparison: NoneFindings: The lungs are clear. No pleural effusions are evident. Heart size isnormal. The superior mediastinal silhouette is unremarkable for age andprojection. No acute bony abnormalities are evident. Surgical clips areseen within the upper abdomen.IMPRESSIONIm pression:No acute abnormalities evident.RL: 460End of Report Test, Serum 2019-11-29 00:30:00 Test Item Value Reference Range Interpretation Comme nts PREG SERUM (test code = 3436082286) Negative KALANI (test code = KALANI) Less than 10 IU/L. ?If low titer or ectopic is suspected, resubmit specimen in 48-72 hours. [facility] [id number] 00:27:00 Test Item Value Reference Range Interpretation Comments TROPONIN I (test 0.001 ng/mL See_Comment [Automated code = 3031763067) message] The system which generated this result transmitted reference range : <=0.034. The reference range was not used to interpret this result as normal/abnormal . KALANI (test code = Equal or Less than KALANI) 0.034 ng/ml---Normal ?Note: Cardiac troponin begins to rise 3-4 hours after the onset of ischemia. Repeat in 4-6 hours if the sample was drawn within 3-4 hours of the onset of the symptom and found normal. Between 0.035 and 0.120 ng/mL--- Borderline. Questionable myocardial injury or necrosis ? ?Note: Serial measurement may be necessary to confirm or exclude the diagnosis of myocardial injury or necrosis; Clinical correlation (symptoms, EKGs, imaging studies, and others) required; Repeat in 4-6 hours if clinically indicated. ? Equal or Higher than 0.121 ng/mL---Abnormal. Myocardial Injury or Necrosis Likely ? Biotin has been reported to cause a negative bias, interpret results relative to patient's use of biotin. ? Lab Interpretation Normal (test code = 53970-9) [facility] ([facility] NOW RAPID TESTING)2019-11-29 00:21:00 Test Item Value Reference Range Interpretation Comments SARS-CoV-2 Rapid ID NOW Not Detected Not Detected (test code = 14478-8) KALANI (test code = KALANI) ID NOW COVID-19 Assay is an isothermal nucleic acid amplification test intended for the qualitative detection of nucleic acid from SARS-CoV-2 viral RNA in nasopharyngeal (VALET MANAGER) specimens. It is used under Emergency Use Authorization (EUA) by FDA. The limit of detection (LOD) of the assay is 125 Genome Equivalents/mL. A positive result is indicative of the presence of SARS-CoV-2 RNA. ?Clinical correlation with patient history and other diagnostic information is necessary to determine patient infection status. A negative (Not Detected) result does not preclude SARS-CoV-2 infection. In patients with clinical symptoms and other tests that are consistent with SARS-CoV-2 infection, negative results should be treated as presumptive negative and a new specimen should be tested with alternative PCR molecular test. Invalid: Please collect a new specimen for repeat patient testing if clinically indicated. Lab Interpretation Normal (test code = 78328-1) [facility] (ALB, T.PRO, BILI T, BU/BC, ALT, AST, ALK PHOS)2019-11-29 00:18:00 Test Item Value Reference Range Interpretation Comments TOTAL BILI (test code = 6267908244) 0.5 mg/dL 0.1-1.1 BILI UNCON (test code = 2604323120) 0.7 mg/dL 0.1-1.1 BILI CONJ (test code = 8630606261) 0.0 mg/dL 0-0.3 T PROTEIN (test code = 3136395383) 8.3 g/dL 6.3-8.2 H ALBUMIN (test code = 8669725335) 4.3 g/dL 3.5-5 ALK PHOS (test code = 1523540934) 60 U/L 34-122 ALTv (test code = 1742-6) 20 U/L 5-35 AST(SGOT) (test code = 1699557957) 24 U/L 13-40 Lab Interpretation (test code = Abnormal 66279-9) [facility] Metabolic Panel (NA, K, CL, CO2, GLUCOSE, BUN, CREATININE, CA)2019-11-29 00:15:00 Test Item Value Reference Range Interpretation Comments NA (test code = 137 mmol/L 135-145 5743224671) K (test code = 3.8 mmol/L 3.5-5 0118631878) CL (test code = 101 mmol/L 98-108 7095675693) CO2 TOTAL (test code = 26 mmol/L 23-31 7326153206) AGAP (test code = 2-16 0651775368) BUN (test code = 8 mg/dL 7-23 2641692033) GLUCOSE (test code = 93 mg/dL 70-110 7572792345) CREATININE (test code 0.72 mg/dL 0.5-1.04 = 0022842632) CALCIUM (test code = 9.5 mg/dL 8.6-10.6 7865263997) eGFR Calculation mL/min/1.73m2 (Non-) (test code = 0444630873) eGFR Calculation mL/min/1.73m2 () (test code = 5417644852) KALANI (test code = KALANI) Association of Glomerular Filtration Rate (GFR) and Staging of Kidney Disease* + -+ + ---+| GFR (mL/min/1.73 m2) ?| With Kidney Damage ?| ?Without Kidney Damage+ -------+ ------+ ---------+| ?>90 ?| ?Stage one ?| ? Normal ?+ --+ -+ ----+| ?60-89 ?| ?Stage two ?| ? Decreased GFR ? + -+ + ---+| ?30-59 ?| ?Stage three ?| ? Stage three ? + -+ + ---+| ?15-29 ?| ?Stage four ? | ? Stage four ?+ --+ -+ ----+| ?<15 (or dialysis) ? ?| ?Stage five ? | ? Stage five ?+ --+ -+ ----+ *Each stage assumes the associated GFR level has been in effect for at least three months. ?Stages 1 to 5, with or without kidney disease, indicate chronic kidney disease. Notes: Determination of stages one and two (with eGFR >59mL/min/1.73 m2) requires estimation of kidney damage for at least three months as defined by structural or functional abnormalities of the kidney, manifested by either:Pathological abnormalities or Markers of kidney damage (including abnormalities in the composition of the blood or urine or abnormalities in imaging tests). [facility] CenterLipase [id number] 00:15:00 Test Item Value Reference Range Interpretation Comments LIPASE (test code = 2980599572) 97 U/L 0-220 Lab Interpretation (test code = Normal 40824-0) [facility] CenteraPTT2020-09-30 00:03:00 Test Item Value Reference Range Interpretation Comments APTT Patient (test See_Comment [Automat ed code = 3173-2) message] The system which generated this result transmitted reference range : 23 - 38 Seconds . The reference range was not used to interpr et this result as normal/abnormal . KALANI (test code = KALANI) The [facility] patient population mean normal value for aPTT is 30 seconds. Lab Interpretation Normal (test code = 46577-4) [facility] CenterProthrombin Time (PT) / [id number] 00:01:00 Test Item Value Reference Range Interpretation Comments PROTIME PATIENT (test See_Comment [Auto mated message] code = 5964-2) The system wh ich generated this result transmitted ref erence range: 12.0 - 1 4.7 Seconds. The re ference range was not u sed to interpret this result as normal/abnor mal. INR (test code = 6301-6) Nor mal INR <1.1; Warfarin Therap eutic range 2.0 to 3. 0 or 2.5 to 3.5, dep ending upon the indica tions. Lab Interpretation (test Normal code = 28998-2) [facility] CenterCBC with [id number] 23:52:00 Test Item Value Reference Range Interpretation Comments WBC (test code = See_Comment [Automated 6690-2) message] The sy stem which generated this result transmitted reference range : 4.30 - 11.10 10*3/?L. The reference range was not used to interpret this result as normal/abnormal . RBC (test code = See_Comment [Automated 789-8) message] The sy stem which generated this result transmitted reference range : 3.93 - 5.25 10*6/?L. The reference range was not used to interpret this result as normal/abnormal . HGB (test code = 13.6 g/dL 11.6-15 718-7) HCT (test code = 39.9 % 35.7-45.2 4544-3) MCV (test code = 86.9 fL 80.6-95.5 787-2) MCH (test code = 29.6 pg 25.9-32.8 785-6) MCHC (test code = 34.1 g/dL 31.6-35.1 786-4) RDW-SD (test code = 40.2 fL 39-49.9 03089-3) RDW-CV (test code = 12.8 % 12-15.5 788-0) PLT (test code = See_Comment [Automated 777-3) message] The sy stem which generated this result transmitted reference range : 166 - 358 10*3/ ?L. The reference r braden was not used to interpret this result as normal/abnormal . MPV (test code = 9.1 fL 9.5-12.9 L 61870-6) NRBC/100 WBC (test See_Comment [Automat ed code = 1162054401) message] The system which generated this result transmitted reference range : 0.0 - 10.0 /100 WBCs. The refer ence range was not u sed to interpret th is result as normal/abnormal . NRBC x10^3 (test code <0.01 See_Comment [Auto mated = 6763104384) message] The s ystem which generated this result transmitted reference range : 10*3/?L. The reference range was not used to interpret this result as normal/abnormal . GRAN MAT (NEUT) % 60.4 % (test code = 770-8) IMM GRAN % (test code 0.10 % = 2501692990) LYMPH % (test code = 33.1 % 736-9) MONO % (test code = 5.6 % 5905-5) EOS % (test code = 0.5 % 713-8) BASO % (test code = 0.3 % 706-2) GRAN MAT x10^3(ANC) 5.98 10*3/uL 1.88-7.09 (test code = 3776420558) IMM GRAN x10^3 (test <0.03 0-0.06 code = 7144208428) LYMPH x10^3 (test code 3.27 10*3/uL 1.32-3.29 = 731-0) MONO x10^3 (test code 0.55 10*3/uL 0.33-0.92 = 742-7) EOS x10^3 (test code = 0.05 10*3/uL 0.03-0.39 711-2) BASO x10^3 (test code 0.03 10*3/uL 0.01-0.07 = 704-7) Lab Interpretation Abnormal (test code = 82435-5) [facility]"
[2021-03-10] MEDS ORDERED: FAMOTIDINE 20 MG/2 ML VIAL IV ONE (06:33)
[2021-03-10] MEDS ORDERED: ASPIRIN 81 MG CHEWABLE TABLET ONE (06:33)
[2021-03-10] MEDS ORDERED: NA CHLORIDE 0.9% 1,000 ML ONE (06:34)
[2021-03-10 06:54] LABS: Hematocrit 36.3 % (36.0-45.0); Lymphocytes % 23.3 % (15.3-44.8); MPV 6.6 fL (7.6-11.3); RBC Red Blood Cell Count 4.08 M/uL (3.86-4.86)
[2021-03-10 06:59] LABS: Protime INR 0.88
[2021-03-10 07:13] LABS: ALT/SGPT 27 U/L (12-78); AST/SGOT 17 U/L (15-37); Albumin 2.8 g/dL (3.4-5.0); Alkaline Phosphatase 60 U/L (45-117); BUN Blood Urea Nitrogen 14 mg/dL (7-18); Bicarbonate 23 mmol/L (21-32); Bilirubin Direct < 0.1 mg/dL (0-0.2); Bilirubin Total 0.2 mg/dL (0.2-1.0); Glucose Level 102 mg/dL (74-106); Lipase 128 U/L (73-393); NT PRO-BNP 135 pg/mL (<125); Potassium 3.7 mmol/L (3.5-5.1); Sodium Level 139 mmol/L (136-145); Troponin (Emerg Dept Use Only) < 0.02 ng/mL (0.0-0.045)
[2021-03-10 07:20] LABS: SARS-COV-2 RT PCR NEGATIVE (NEGATIVE)
--- NOTE | 2021-03-10 07:33 | ER ---
Nurse's Notes [facility] Name: Renee Castellon Age: 45 yrs Sex: Female : 1975 Arrival Date: 03/10/2021 Time: 05:37 Bed 14 Private MD: Diagnosis: Acute upper respiratory infection, unspecified;Cough;Pleurisy Presentation: 03/10 05:41 Chief complaint: Patient states: covid like symptoms. cough, congestion, runny nose, tw5 sore throat, body aches starting Wednesday. woke up overnight with severe coughing with pain. Took Mucinex areound 1400 and NyQuil around 2130. Denies Fever or SOB. Coronavirus screen: Client denies travel out of the [place] in the last 14 days. congestion, cough unrelated to allergies, fatigue, headache, muscle pain, runny nose, sore throat, Client presents with at least one sign or symptom that may indicate coronavirus-19. Standard/surgical mask placed on the client. Ebola Screen: No symptoms or risks identified at this time. Initial Sepsis Screen: Does the patient meet any 2 criteria? No. Patient's initial sepsis screen is negative. Does the patient have a suspected source of infection? No. Patient's initial sepsis screen is negative. Risk Assessment: Do you want to hurt yourself or someone else? Patient reports no desire to harm self or others. Onset of symptoms was February 06, 2022. 05:41 Method Of Arrival: Ambulatory tw5 05:41 Acuity: MICH 4 tw5 Triage Assessment: 05:46 General: Appears in no apparent distress. uncomfortable, Behavior is calm, cooperative. tw5 Pain: Complains of pain in throat Pain currently is 7 out of 10 on a pain scale. EENT: No deficits noted. Neuro: Level of Consciousness is awake, alert, obeys commands, Oriented to person, place, time, situation, Moves all extremities. Gait is steady, Speech is normal. Cardiovascular: No deficits noted. Capillary refill < 3 seconds JVD is absent Patient's skin is warm and dry. Respiratory: Airway is patent Trachea midline Respiratory effort is even, unlabored, Respiratory pattern is regular, symmetrical. GI: No deficits noted. No signs and/or symptoms were reported involving the gastrointestinal system. : No deficits noted. No signs and/or symptoms were reported regarding the genitourinary system. Derm: No deficits noted. No signs and/or symptoms reported regarding the dermatologic system. Musculoskeletal: No deficits noted. No signs and/or symptoms reported regarding the musculoskeletal system. 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 - Social history:: Smoking status: Patient denies any tobacco usage or history of. - Family history:: not pertinent. Screenin:21 Abuse screen: Denies threats or abuse. Nutritional screening: No deficits noted. sv1 Tuberculosis screening: No symptoms or risk factors identified. Fall Risk None identified. Assessment: 06:25 Pain: Complains of pain in chest Pain does not radiate. Pain began suddenly. sv1 06:25 Reassessment: blood and swabs sent to the lab. The paTIENT HAS A DRY BARKY COUGH.. sv1 Vital Signs: 05:41 BP 151 / 99; Pulse 91; Resp 18; Temp 97.1; Pulse Ox 100% ; Weight 90.72 kg (R); Height tw5 5 ft. 7 in. (170.18 cm) (R); Pain 7/10; 06:21 BP 128 / 90; Pulse 94; Resp 16; Temp 98.2; Pulse Ox 98% ; Weight 90.72 kg; Height 5 ft. sv1 7 in. (170.18 cm); 06:21 Body Mass Index 31.32 (90.72 kg, 170.18 cm) sv1 ED Course: 05:37 Patient arrived in ED. bp1 05:46 Triage completed. tw5 05:46 Arm band placed on. tw5 05:50 Km Arambula MD is Attending Physician. leo 06:21 XRAY Chest (1 view) In Process Unspecified. EDMS 06:21 Abhijit Garner, RN is Primary Nurse. sv1 06:21 Patient has correct armband on for positive identification. Placed in gown. Bed in low sv1 position. Call light in reach. Side rails up X2. Pulse ox on. NIBP on. 06:21 Inserted saline lock: in left hand, using aseptic technique. Patient maintains SpO2 sv1 saturation greater than 95% on room air. 06:27 D-Dimer Sent. sv1 06:27 CBC with Automated Diff Sent. sv1 06:27 Basic Metabolic Panel Sent. sv1 06:27 Lipase Sent. sv1 06:27 Basic Metabolic Panel Sent. sv1 06:27 CBC with Diff Sent. sv1 06:28 LFT's Sent. sv1 06:28 Magnesium Sent. sv1 06:28 NT PRO-BNP Sent. sv1 06:28 PT-INR Sent. sv1 06:28 Troponin (emerg Dept Use Only) Sent. sv1 06:28 Strep Sent. sv1 06:28 COVID-19/FLU A+B (Document "Date of Onset" if Symptomatic) Sent. sv1 07:28 Primary Nurse role handed off by Abhijit Garner, RN bd 08:31 No provider procedures requiring assistance completed. IV discontinued, intact, gloria Pressure dressing applied. Administered Medications: 06:10 CANCELLED (Duplicate Order): Heparin (DVT/PE- Bolus per protocol) - HEParin 80 units/kg leo IVP once; Max 8,000 units 06:10 CANCELLED (Duplicate Order): Heparin (DVT/PE Drip) 18 units/kg/hr - (HEParin 33167 leo units, D5W 500 ml) IV at per protocol Per protocol; Max initial rate 1800 units/hr 06:46 Drug: NS 0.9% 1000 ml Route: IV; Rate: 125 ml/hr; Site: left hand; sv1 06:46 Drug: Aspirin Chewable Tablet 324 mg Route: PO; sv1 06:46 Drug: Pepcid (famotidine) 20 mg Route: IVP; Site: left hand; sv1 Outcome: 07:32 Discharge ordered by . leo 08:31 Discharged to home gloria 08:31 Condition: good 08:31 Discharge instructions given to patient, Prescriptions given X 3. 08:31 Patient left the ED. gloria Signatures: Dispatcher [employer] EDWA Magdalena Abernathy Corey, MD MD cha Paniauga, Brittany bp1 Wood, Tiffany tw5 Emi Palumbo, RN RN Abhijit Mckee RN RN sv1 Corrections: (The following items were deleted from the chart) 06:35 06:27 SARS-COV-2 RT PCR+MOL.LAB.BRZ drawn and sent. sv1 EDMS
--- NOTE | 2021-03-10 07:34 | EDPHYS ---
Physician Documentation [facility] Name: Renee Castellon Age: 45 yrs Sex: Female : 1975 Arrival Date: 03/10/2021 Time: 05:37 Bed 14 Private MD: ED Physician Km Arambula HPI: 03/10 05:57 This 45 yrs old Female presents to ER via Ambulatory with complaints of Chest leo Pain > 30 y/o. 05:57 The patient or guardian reports chest pain that is located primarily in the anterior leo chest wall, bilaterally. Onset: 2 day(s) ago. The pain does not radiate. Associated signs and symptoms: The patient has no apparent associated signs or symptoms. The chest pain is described as burning, sharp. Duration: The patient or guardian reports multiple episodes, that are intermittent. Modifying factors: The symptoms are alleviated by remaining still, the symptoms are aggravated by cough, deep breath. Severity of pain: At its worst the pain was mild moderate in the emergency department the pain is actually worse. The patient has not experienced similar symptoms in the past. 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 - Social history:: Smoking status: Patient denies any tobacco usage or history of. - Family history:: not pertinent. ROS: 05:57 Constitutional: Negative for fever, chills, and weight loss, Eyes: Negative for injury, leo pain, redness, and discharge, ENT: Negative for injury, pain, and discharge, Neck: Negative for injury, pain, and swelling, Cardiovascular: Negative for chest pain, palpitations, and edema, Back: Negative for injury and pain, : Negative for injury, bleeding, discharge, and swelling, MS/Extremity: Negative for injury and deformity, Skin: Negative for injury, rash, and discoloration, Neuro: Negative for headache, weakness, numbness, tingling, and seizure, Psych: Negative for depression, anxiety, suicide ideation, homicidal ideation, and hallucinations, Allergy/Immunology: Negative for hives, rash, and allergies, Endocrine: Negative for neck swelling, polydipsia, polyuria, polyphagia, and marked weight changes, Hematologic/Lymphatic: Negative for swollen nodes, abnormal bleeding, and unusual bruising. 05:57 Cardiovascular: Positive for chest pain, with cough, of the chest. 05:57 Respiratory: Positive for cough, shortness of breath, at rest. Exam: 05:57 Constitutional: This is a well developed, well nourished patient who is awake, alert, leo and in no acute distress. Head/Face: Normocephalic, atraumatic. Eyes: Pupils equal round and reactive to light, extra-ocular motions intact. Lids and lashes normal. Conjunctiva and sclera are non-icteric and not injected. Cornea within normal limits. Periorbital areas with no swelling, redness, or edema. ENT: Nares patent. No nasal discharge, no septal abnormalities noted. Tympanic membranes are normal and external auditory canals are clear. Oropharynx with no redness, swelling, or masses, exudates, or evidence of obstruction, uvula midline. Mucous membranes moist. Neck: Trachea midline, no thyromegaly or masses palpated, and no cervical lymphadenopathy. Supple, full range of motion without nuchal rigidity, or vertebral point tenderness. No Meningismus. Chest/axilla: Normal chest wall appearance and motion. Nontender with no deformity. No lesions are appreciated. Cardiovascular: Regular rate and rhythm with a normal S1 and S2. No gallops, murmurs, or rubs. Normal PMI, no JVD. No pulse deficits. Respiratory: Lungs have equal breath sounds bilaterally, clear to auscultation and percussion. No rales, rhonchi or wheezes noted. No increased work of breathing, no retractions or nasal flaring. Abdomen/GI: Soft, non-tender, with normal bowel sounds. No distension or tympany. No guarding or rebound. No evidence of tenderness throughout. Back: No spinal tenderness. No costovertebral tenderness. Full range of motion. Skin: Warm, dry with normal turgor. Normal color with no rashes, no lesions, and no evidence of cellulitis. MS/ Extremity: Pulses equal, no cyanosis. Neurovascular intact. Full, normal range of motion. Neuro: Awake and alert, GCS 15, oriented to person, place, time, and situation. Cranial nerves II-XII grossly intact. Motor strength 5/5 in all extremities. Sensory grossly intact. Cerebellar exam normal. Normal gait. Psych: Awake, alert, with orientation to person, place and time. Behavior, mood, and affect are within normal limits. 05:57 Musculoskeletal/extremity: ROM: no acute changes, intact in all extremities, full active range of motion, full passive range of motion, in all extremities, Circulation is intact in all extremities. Sensation intact. Compartment Syndrome exam of affected extremity: is normal. DVT Exam: No signs of deep vein thrombosis. no pain, no swelling, no tenderness, negative Homans' sign noted on exam, no appreciated bluish discoloration, no erythema, no increased warmth. 07:37 ECG was reviewed by the Attending Physician. [facility] Vital Signs: 05:41 BP 151 / 99; Pulse 91; Resp 18; Temp 97.1; Pulse Ox 100% ; Weight 90.72 kg (R); Height tw5 5 ft. 7 in. (170.18 cm) (R); Pain 7/10; 06:21 BP 128 / 90; Pulse 94; Resp 16; Temp 98.2; Pulse Ox 98% ; Weight 90.72 kg; Height 5 ft. sv1 7 in. (170.18 cm); 06:21 Body Mass Index 31.32 (90.72 kg, 170.18 cm) sv1 MDM: 05:50 Patient medically screened. [facility] 06:06 Differential diagnosis: abnormal EKG, acute myocardial infarction, acute pericarditis, leo anxiety, coronary artery disease chest wall pain, Cholelithiasis costochondritis, esophagitis, hiatal hernia, pancreatitis, pneumonia, pulmonary embolus, stable angina, unstable angina. HEART Score: History: Slightly Suspicious (0), ECG: Normal (0), Age: < or = 45 years (0), Risk Factors: No Risk Factors Known (0), Troponin: < or = 1 x Normal Limit (0), Total Score = 0. The patient was given aspirin in the Emergency Department. The patient's deep vein thrombosis risk score was calculated as follows: Total Score: 0. This patient was found to be at low risk for a deep vein thrombosis by using the Well's assessment criteria. The patient's pulmonary embolism risk score was calculated as follows: Total Score: 0-2 points. This patient was found to be at low risk for a pulmonary embolism by using the Well's assessment criteria. ALIYA Risk Score: TOTAL SCORE = 0. Data reviewed: vital signs, nurses notes, lab test result(s), EKG, radiologic studies, plain films. Data interpreted: machine baster: rate is 91 beats/min, rhythm is regular, Pulse oximetry: on room air is 100 %. Test interpretation: by ED physician or midlevel provider: ECG, plain radiologic studies. Counseling: I had a detailed discussion with the patient and/or guardian regarding: the historical points, exam findings, and any diagnostic results supporting the discharge/admit diagnosis, the presence of at least one elevated blood pressure reading (>120/80) during this emergency department visit, lab results, radiology results. 03/10 05:50 Order name: COVID-19/FLU A+B (Document "Date of Onset" if Symptomatic); Complete Time: 07:03/10 05:50 Order name: Strep tw5 03/10 05:53 Order name: Basic Metabolic Panel 03/10 05:53 Order name: CBC with Diff 03/10 05:53 Order name: LFT's; Complete Time: 07:27 03/10 05:53 Order name: Magnesium; Complete Time: 07:27 03/10 05:53 Order name: NT PRO-BNP; Complete Time: 07:27 03/10 05:53 Order name: PT-INR; Complete Time: 07:03/10 05:53 Order name: Troponin (emerg Dept Use Only); Complete Time: 07:27 03/10 05:53 Order name: Lipase; Complete Time: 07:27 03/10 05:53 Order name: Basic Metabolic Panel; Complete Time: 07:27 EDMS 03/10 05:53 Order name: CBC with Automated Diff; Complete Time: 07:27 EDWV 03/10 05:56 Order name: D-Dimer; Complete Time: 07:27 03/10 05:53 Order name: XRAY Chest (1 view) 03/10 05:53 Order name: EKG; Complete Time: 05:53 [facility] 03/10 05:53 Order name: Cardiac monitoring; Complete Time: 06:27 [facility] 03/10 05:53 Order name: EKG - Nurse/Tech [facility] 03/10 05:53 Order name: IV Saline Lock; Complete Time: 06:27 [facility] 03/10 05:53 Order name: Labs collected and sent; Complete Time: 06:28 [facility] 03/10 05:53 Order name: O2 Per Protocol; Complete Time: 06:28 [facility] 03/10 07:37 Order name: Throat Culture [facility] 03/10 07:42 Order name: Urine Dipstick-Ancillary [facility] 03/10 05:53 Order name: O2 Sat Monitoring; Complete Time: 06:28 [facility] 03/10 05:53 Order name: Urine Dipstick-Ancillary (obtain specimen) [facility] EC:37 Rate is 78 beats/min. Rhythm is regular. QRS [place] is Normal. CO interval is normal. QRS leo interval is normal. QT interval is normal. No Q waves. T waves are Normal. No ST changes noted. Clinical impression: NSR w/ Non-specific ST/T Changes and No evidence of ischemia. Interpreted by me. Reviewed by me. Administered Medications: 06:10 CANCELLED (Duplicate Order): Heparin (DVT/PE- Bolus per protocol) - HEParin 80 units/kg leo IVP once; Max 8,000 units 06:10 CANCELLED (Duplicate Order): Heparin (DVT/PE Drip) 18 units/kg/hr - (HEParin 76450 leo units, D5W 500 ml) IV at per protocol Per protocol; Max initial rate 1800 units/hr 06:46 Drug: NS 0.9% 1000 ml Route: IV; Rate: 125 ml/hr; Site: left hand; sv1 06:46 Drug: Aspirin Chewable Tablet 324 mg Route: PO; sv1 06:46 Drug: Pepcid (famotidine) 20 mg Route: IVP; Site: left hand; sv1 Disposition Summary: 03/10/21 07:32 Discharge Ordered Location: Home leo Problem: new leo Symptoms: have improved leo Condition: Stable leo Diagnosis - Acute upper respiratory infection, unspecified leo - Cough leo - Pleurisy leo Followup: leo - With: Private Physician - When: 2 - 3 days - Reason: Recheck today's complaints, Continuance of care, Re-evaluation by your physician Discharge Instructions: - Discharge Summary Sheet leo - Pharyngitis leo - Pleurisy leo - Upper Respiratory Infection, Adult leo - Cool Mist Vaporizer leo - Upper Respiratory Infection, Adult, [id number] leo - Cough, Adult, [id number] leo - Aspirin and Your Heart leo - Cough, Adult [facility] Forms: - Medication Reconciliation Form [facility] - Thank You Letter leo - Antibiotic Education [facility] - Prescription Opioid Use [facility] Prescriptions: - Bromfed DM 2-30-10 mg/5 mL Oral syrup - take 7.5 milliliter by ORAL route every 6 hours; 160 milliliter; Refills: 0, [facility] Product Selection Permitted - Pepcid 20 mg Oral Tablet - take 1 tablet by ORAL route every 12 hours for 15 days; 30 tablet; Refills: 0, [facility] Product Selection Permitted - Zithromax 500 mg Oral Tablet - take 1 tablet by ORAL route once daily for 4 days; 4 tablet; Refills: 0, [facility] Product Selection Permitted Signatures: Dispatcher [employer] EDKm Tom MD MD cha Wood, Tiffany tw5 Abhijit Garner RN RN sv1 Corrections: (The following items were deleted from the chart) 06:10 06:09 Heparin (DVT/PE- Bolus per protocol) - HEParin 80 units/kg IVP once; Max 8,000 leo units ordered. [facility] 06:10 06:09 Heparin (DVT/PE Drip) 18 units/kg/hr - (HEParin 23722 units, D5W 500 ml) IV at [facility] per protocol Per protocol; Max initial rate 1800 units/hr ordered. [facility] 06:35 05:53 SARS-COV-2 RT PCR+MOL.LAB.BRZ ordered. EDWV EDMS 07:32 07:29 Chest For PE Angio+CT.RAD.BRZ ordered. EDMS EDMS
[2021-03-10 07:42] LABS: Urine Blood Negative (Negative); Urine Glucose Negative (Negative); Urine Protein Negative (Negative); Urine pH 5.5 (5.0-7.0)
--- NOTE | 2021-03-10 07:49 | RAD REPORT ---
EXAM DESCRIPTION: Dorcas Single View03/10/2021 6:21 am CLINICAL HISTORY: Chest pain COMPARISON: 2019 FINDINGS: The lungs appear clear of acute infiltrate. The heart is normal size IMPRESSION: No acute abnormalities displayed
[2021-03-10 08:58] VITALS: BP 128/90; TEMP 98.2; O2SAT 98
== END 2021-03-10 08:31 | disposition home or self-care (01) ==
LOC: ER 05:36
DX: J06.9 Acute upper respiratory infection, unspecified (principal); R09.1 Pleurisy; Z20.822 Contact with and (suspected) exposure to COVID-19
CPT/HCPCS: 93005; 87070; 85025; 80048; 36415; 83735; 85610; 85379; 80076; 87081; 81003; 84484; 83690; 83880; 0240U; 71045; 96374; 99284; J7030

== ENCOUNTER 2021-09-30 09:46 | Emergency (ER) | payer OTHER ==
[2021-09-30 10:16] LABS: Urine Blood Negative (Negative); Urine Glucose Negative (Negative); Urine Protein Negative (Negative); Urine pH 5.5 (5.0-7.0)
[2021-09-30] MEDS ORDERED: ONDANSETRON 4 MG/2 ML VIAL ONE (10:54)
[2021-09-30] MEDS ORDERED: LORazepam 2 MG/ML VIAL ONE (10:54)
[2021-09-30] MEDS ORDERED: NA CHLORIDE 0.9% 1,000 ML ONE (10:54)
[2021-09-30] MEDS ORDERED: MORPHINE 2 MG/ML SYR ONE (10:54)
[2021-09-30 11:24] LABS: Absolute Lymphocytes (CBC) 1.8 K/uL (0.7-4.9); Lymphocytes % 35.6 % (15.3-44.8); MPV 6.7 fL (7.6-11.3); RBC Red Blood Cell Count 4.32 M/uL (3.86-4.86)
--- OUTSIDE RECORDS SUMMARY | 2021-09-30 11:34 | XMS REPORT | Continuity of Care Document ---
:1975 Author Organization [facility] [place] t Address [address] [place] [address] [address]. [address] [place] [address] Care Team Providers Name Role Phone Brendan Monaco Primary Care Physician Only, Ang Db Test Attending Clinician Unavailable Elena Rivas Attending Clinician ELENA MCRAE Attending Clinician Unavailable Nataly Noonan MD Attending Clinician [phone] PAVITHRA BEARD Attending Clinician Unavailable Lab, Adc Fam Pob I Attending Clinician Unavailable Pavithra Krishnamurthy Attending Clinician Sahra Sanchez PA-C Attending Clinician SAHRA SANCHEZ Attending Clinician Unavailable KELLIE PARADA Attending Clinician Unavailable Kellie Franklin Attending Clinician Dulce Elizondo Attending Clinician DULCE SHUKLA Attending Clinician Unavailable Juliocesar FIGUEROA, Marychuy Garcia Attending Clinician Fransisca Oro MD Attending Clinician Payers Payer Name [...] Date Date Clinician IODINE DRUG Active Anaphylaxis Unive rs INGREDI 11-27 ity of 00:00: [address] Iodine Propensi Active Anaphylaxis Anaphylax Imani ty to 11-27 is Seybold adverse 00:00: despite reaction 00 steroid s pretreatm ent for CT with contrast; also shellfish anaphylax is NO KNOWN Drug Active [facility] ALLERGIE Class ity of [facility] Social History Social Habit Start Date Stop Date Quantity Comments Source Exposure to Not sure [facility] SARS-CoV-2 (event) Medica l Branch Sex Assigned At [birth year] Imani Se ybold 00:00:00 00:00:00 Smoking Status Start Date Stop Date Source Never smoked tobacco Imani Seyb old Unknown if ever smoked [facility] Medications Ordered Filled Start Stop Current Ordering [...] times tablet 38 daily Amoxicillin 2020-03 Yes [id number] 1{tbl} Take 1 Imani -Pot 0-20 tablet by Seybold Clavulanate 00:00: mouth 2 875-125 MG 00 times oral Tablet daily Trazodone 2020-03 Yes [id number] 50mg QD Take 1 K elsey HCl [...] Last dose on Wed11/29/19 at 1800, 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 Restricted medication : VIJAYMARYCHUY JENKINS proMETHazin 2020-0 2020- No 25mg 25 mg, IV Univers e 11-28 Piggyback, ity of (PHENERGAN) 02:45: 01[place]41 [place] 00 :00 dose, Tue Medica l NaCl 0.9% 11/28/19 at [facility] (NS) 50 mL 2145, 50 piggyback mL ondansetron 2019-0 2020- No 4mg 4 mg, Slow Univers (ZOFRAN 11-28 IV Push, ity of (PF)) 02:00: 01:04 ONCE, 1 [place] injection 4 00 :00 dose, Tue Med ical mg 11/28/19 at Branch 2100, CARLA pantoprazol 2019-0 2020- No 40mg 40 mg, IV Univers e 11-28 Piggyback, ity of (PROTONIX) 02:00: 01:18 ONCE, 1 [place] as 40 mg in 00 :00 dose, Tue Medica l NaCl 0.9% 11/28/19 at [facility] (NS) 100 mL 2100, 100 MINI-BAG mL FENTanyl PF 2019-0 2020- No 50ug 50 mcg, Un becca (SUBLIMAZE 11-28 Slow IV ity o f (PF)) 02:00: 01:03 Push, [place] injection 00 :00 ONCE, 1 Medical 50 mcg dose, [facility] 11/28/19 at 2100, Routine ondansetron 2019-0 2020- No 4mg 4 mg, Slow Univers (ZOFRAN 11-28 IV Push, ity of (PF)) 00:45: 23:47 ONCE, 1 [place] injection 4 00 :00 dose, Tue Med ical mg 11/28/19 at Branch 1945, CARLA morpHINE 2020-0 2020- No 4mg 4 mg, Slow Un becca injection 4 11-28 IV Push, ity of mg 00:45: 23:47 ONCE, 1 [place] 00 :00 dose, Tu Medical 11/28/19 at Branch 1945, STAT aspirin 2020-0 2020- No 325mg 325 mg, Unive rs tablet 325 11-27 Oral, ity of mg 23:45: 23:41 ONCE, 1 [place] 00 :00 dose, [facility] Medical 11/28/19 at Branch 1845, STAT esomeprazol 2020-0 Yes 20mg Take 20 mg Univers e (NEXIUM) 9-29 by mouth ity o f 20 mg 23:27: daily [place] capsule 23 before a Medical meal. Branch omeprazole 2020-0 Yes 40mg Take 40 mg U nivers 40 mg 9-29 by mouth ity of capsule 23:27: daily. [place] [address] Medical Branch famotidine 2020-0 Yes 20mg Take [...] by mouth ity of capsule 23:27: daily. [place] [address] Medical Branch famotidine 2020-0 Yes 20mg Take [...] by mouth ity of capsule 23:27: daily. [place] [address] Medical Branch famotidine 2020-0 Yes 20mg Take 20 mg U nivers (PEPCID) 20 9-29 by mouth 2 it y of mg tablet 23:27: (two) [place] 23 times Medical daily. Branch zolpidem 2020-0 [...] by mouth ity of capsule 23:27: daily. [place] [address] Medical Branch famotidine 2020-0 Yes 20mg Take [...] by mouth ity of capsule 23:27: daily. [place] [address] Medical Branch famotidine 2020-0 Yes 20mg Take [...] by mouth ity of capsule 23:27: daily. [place] [address] Medical Branch famotidine 2020-0 Yes 20mg Take 20 mg U nivers (PEPCID) 20 9-29 by mouth 2 it y of mg tablet 23:27: (two) [place] 23 times Medical daily. Branch zolpidem 2020-0 [...] by mouth ity of capsule 23:27: daily. [place] 23 Medical Branch famotidine 2020-0 Yes 20mg Take 20 mg U nivers (PEPCID) 20 9-29 by mouth 2 it y of mg tablet 23:27: (two) [place] 23 times Medical daily. Branch zolpidem 2020-0 Yes 10mg Take 10 mg Uni vers (AMBIEN) 10 9-29 by mouth ity of mg tablet 23:27: at [place]time [place] 23 as needed Medical for Branch Insomnia. esomeprazol 2020-0 Yes 20mg Take 20 mg Univers e (NEXIUM) 9-29 by mouth ity o f 20 mg 18:27: daily [place] capsule 23 before a Medical meal. Branch omeprazole 2020-0 Yes 40mg Take 40 mg U nivers 40 mg 9-29 by mouth ity of capsule 18:27: daily. [place] [address] Medical Branch famotidine 2020-0 Yes 20mg Take 20 mg U nivers (PEPCID) 20 9-29 by mouth 2 it y of mg tablet 18:27: (two) [place] 23 times Medical daily. Branch zolpidem 2020-0 [...] Indication s: acute pain proMETHazin 2020-0 Yes [id number] 25mg Take 1 Univers e 25 mg [...] Indication s: acute pain proMETHazin 2020-0 Yes [id number] 25mg Take 1 Univers e 25 mg [...] Indication s: acute pain proMETHazin 2020-0 Yes [id number] 25mg Take 1 Univers e 25 mg [...] Indication s: acute pain proMETHazin 2020-0 Yes [id number] 25mg Take 1 Univers e 25 mg [...] Indication s: acute pain proMETHazin 2020-0 Yes [id number] 25mg Take 1 Univers e 25 mg [...] Indication s: acute pain proMETHazin 2020-0 Yes [id number] 25mg Take 1 Univers e 25 mg [...] Indication s: acute pain proMETHazin 2020-0 Yes [id number] 25mg Take 1 Univers e 25 mg [...] Indication s: acute pain proMETHazin 2020-0 Yes [id number] 25mg Take 1 Univers e 25 mg [...] Diastolic blood 2020-12-18 15:39:00 74 mm[Hg] Julián espinoza Seybold pressure Heart rate 2020-12-18 15:39:00 83 /min Imani delgado Body temperature 2020-12-18 15:39:00 37.06 Alana Macarena ranjan Seybold Respiratory rate 2020-12-18 15:39:00 15 /min Macarena woodruff Seybestevan Body height 2020-12-18 15:39:00 170.2 cm Imani delgado Body weight 2020-12-18 15:39:00 95.709 kg Imani delgado BMI 2020-12-18 15:39:00 33.05 kg/m2 Imani delgado Oxygen saturation in 2020-12-18 15:39:00 99 /min Imani Damico Arterial blood by Pulse oximetry Heart rate 2020-01-12 17:00:00 83 /min [facility] [place] [facility] Respiratory rate 2020-01-12 17:00:00 19 /min Univ ers[facility] [place] [facility] Oxygen saturation in 2020-01-12 17:00:00 97 /min University of Arterial blood by [facility] estefania Pulse oximetry Branch Heart rate 2020-01-12 17:00:00 83 /min [facility] [place] [facility] Respiratory rate 2020-01-12 17:00:00 19 /min Univ [facility] [place] [facility] Oxygen saturation in 2020-01-12 17:00:00 97 /min University of Arterial blood by [facility] Pulse oximetry Branch Systolic blood 2019-11-29 01:00:00 135 mm[Hg] Univer sity of pressure [place] [facility] Diastolic blood 2019-11-29 01:00:00 81 mm[Hg] Unive rsity of pressure [place] [facility] Heart rate 2019-11-29 01:00:00 72 /min [facility] [place] [facility] Respiratory rate 2019-11-29 01:00:00 20 /min Univ [facility] [place] [facility] Oxygen saturation in 2019-11-29 01:00:00 98 /min University of Arterial blood by [facility] Pulse oximetry Branch Body temperature 2019-11-28 23:21:00 37.56 Alana [facility] [place] [facility] Body height 2019-11-28 23:21:00 170.2 cm [facility] [place] [facility] Body weight 2019-11-28 23:21:00 90.719 kg [facility] [place] [facility] BMI 2019-11-28 23:21:00 31.32 kg/m2 [facility] [place] [facility] Systolic blood 2019-11-29 01:00:00 135 mm[Hg] Univer sity of pressure [place] [facility] Diastolic blood 2019-11-29 01:00:00 81 mm[Hg] Unive rsity of pressure [place] [facility] Heart rate 2019-11-29 01:00:00 72 /min [facility] Respiratory rate 2019-11-29 01:00:00 20 /min [facility] Oxygen saturation in 2019-11-29 01:00:00 98 /min [facility] Arterial blood by [facility] Pulse oximetry [place] Body temperature 2019-11-28 23:21:00 37.56 Alana [facility] Body height 2019-11-28 23:21:00 170.2 cm [facility] Body weight 2019-11-28 23:21:00 90.719 kg [facility] BMI 2019-11-28 23:21:00 31.32 kg/m2 [facility] Procedures Procedure Date / Time Performing Clinician Source Performed XR CHEST 2 VW 2019-11-28 23:58:38 Juliocesar [facility] COVID-19 (ID NOW RAPID 2019-11-28 23:41:00 Marychuy Magaña [facility] TESTING) Medical Branch LIPASE 2019-11-28 23:36:00 Juliocesar [facility] TEST, SERUM 2019-11-28 23:36:00 Juliocesar [facility] TROPONIN I 2019-11-28 23:36:00 Juliocesar [facility] HEPATIC FUNCTION PANEL 2019-11-28 23:36:00 Marychuy Magaña [facility] ([id number]) (ALB,T.PRO,BILI [facility] T,BU/BC,ALT,AST,ALK PHOS) BASIC METABOLIC PANEL 2019-11-28 23:36:00 Marychuy Magaña [facility] (NA, K, CL, CO2, [facility] GLUCOSE, BUN, CREATININE, CA) CBC WITH DIFF 2019-11-28 23:36:00 Juliocesar [facility] PROTHROMBIN TIME / INR 2019-11-28 23:36:00 Marychuy Magaña [facility] ACTIVATED PARTIAL 2019-11-28 23:36:00 Marychuy Magaña [facility] THRMPLAS GILL [facility] EKG-12 LEAD 2019-11-28 23:31:41 Juliocesar [facility] NOTICE OF PRIVACY 2019-11-28 22:55:14 [facility], [facility] Branch CONSENT/REFUSAL FOR 2019-11-28 22:53:30 Doctor Unassigned, No Un iversity [facility] DIAGNOSIS AND TREATMENT Name [facility] Encounters Start End Encounter Admission Attending Care Care Encounter Source Date/Time Date/Time Type Type Clinicians Facility Department ID 2020-12-18 2020-12-18 Laboratory Only, Ang Db Test [facility] 1.2.8 40.114 [id number] Univers 12:36:22 12:51:22 Only Clementina [employer] 350.1.13.10 ity of [place] 4.2.7.2.686 Yaron as Jun?Blea [phone] [address] Medical Office Building 2020-12-18 2020-12-18 Outpatient [facility] [id number] Univers 12:30:00 12:30:00 [id number] [facility] 2020-12-18 2020-12-18 Outpatient R CLEMENTINA [facility] [id number] Univers 12:30:00 12:30:00 ELENA itolga o f [facility] [place] 2020-12-18 2020-12-18 Office Fernando Noonan 1.2.840.114 [id number] Imani 10:32:34 11:02:34 Visit Nataly Carreon 350.1.13.13 Se darryn Mukesh 1.2.7.2.686 [id number] [id number] 2020-06-16 2020-06-16 Outpatient [facility] [id number] Univers 10:40:00 10:40:00 [id number] [facility] 2020-06-16 2020-06-16 Outpatient R CHIRAG [facility] [id number] Univers 10:40:00 10:40:00 PAVITHRA [facility] 2020-06-16 2020-06-16 Laboratory Lab, Adc Fam Pob I [facility] 1.2. 840.114 [id number] Univers 10:18:56 10:38:56 Only Chirag milabent 350.1.13.10 ity of [place] [id number] Yaron as Professio [phone] Al dical nal [address] One 2020-06-09 2020-06-09 Outpatient [facility] [id number] Univers 10:40:00 10:40:00 [id number] ity [facility] 2020-06-09 2020-06-09 Outpatient R CHIRAG [facility] [id number] Univers 10:40:00 10:40:00 PAVITHRA ity [facility] 2020-06-09 2020-06-09 Laboratory Lab, [facility] Pob I [facility] 1.2. 840.114 [id number] Univers 10:18:04 10:38:04 Only Pavithra [facility] 350.1.13.10 ity of [place] [id number] Yaron as Professio [phone] Al dical nal [address] [place] [address] Office Building One 2020-05-02 2020-05-02 Laboratory Lab, [facility] 1.2.840.114 [id number] 17:20:29 17:40:29 Only Fam Pob I Health [id number] [place] [id number] Professio [phone] nal [facility] Office Building One 2020-05-02 2020-05-02 Laboratory Lab, [facility] Pob I [facility] 1.2. 840.114 [id number] Univers 17:20:29 17:40:29 Only Sahra Sanchez Health 350.1.13.10 ity of [place] [id number] Yaron as Professio [phone] Al dical nal [address] [place] [address] Office Building One 2020-05-02 2020-05-02 Outpatient R RUBÉN [facility] [id number] Univers 17:40:00 17:40:00 SAHRA ity [facility] 2020-05-02 2020-05-02 Outpatient R [facility] [id number] Univers 17:40:00 17:40:00 [id number] ity [facility] 2020-03-13 2020-03-13 Outpatient [facility] [id number] Univers 13:15:00 13:15:00 [id number] ity [facility] 2020-03-13 2020-03-13 Outpatient R MONROE [facility] [id number] Univers 13:15:00 13:15:00 KELLIE walters [facility] [place] 2020-03-13 2020-03-13 Auto Roller Lab, [facility] Pob I [facility] 1.2. 840.114 [id number] Univers 12:56:07 13:11:07 Visit Kellie Parada Health 350.1.13.10 ity of [place] [id number] Yaron as Professio [phone] Al dic[address] Office Building One 2020-03-13 2020-03-13 Auto Roller Lab, [facility] 1.2.840.114 [id number] 12:56:07 13:11:07 Visit Fam Pob I Health 350.1.13.10 [place] 4.2.7.2.686 Professio [phone] nal [address] [place] [address] 2020-03-12 2020-03-12 Outpatient R [facility] [id number] Univers 15:30:00 15:30:00 [id number] y [facility] 2020-03-10 2020-03-10 Outpatient [facility] [id number] Univers 10:55:00 10:55:00 [id number] [facility] 2020-03-10 2020-03-10 Outpatient R CHIRAG [facility] [id number] Univers 10:55:00 10:55:00 PAVITHRA ity [facility] 2020-03-10 2020-03-10 Laboratory Lab, [facility] Pob I [facility] 1.2. 840.114 [id number] Univers 10:28:45 10:43:45 Only Pavithra Beard Health 350.1.13.10 ity of [place] 4.2.7.2.686 Yaron as Professio [phone] Al dical nal [address] Office Building One 2020-03-10 2020-03-10 Laboratory Lab, [facility] 1.2.840.114 [id number] 10:28:45 10:43:45 Only Fam Pob I Health 350.1.13.10 [place] 4.2.7.2.686 Professio [phone] nal [facility] Office Building One 2020-01-12 2020-01-12 Laboratory Lab, [facility] Fam Pob I [facility] 1.2. 840.114 [id number] Univers 14:26:11 14:46:11 Only Dulce Shukla Health 350.1.13.10 ity of [place] [id number] Yaron as Professio [phone] Me dical [address] Office Building One 2020-01-12 2020-01-12 Laboratory Lab, [facility] 1.2.840.114 [id number] 14:26:11 14:46:11 Only Fam Pob I Health 350.1.13.10 [place] 4.2.7.2.686 Professio [phone] [place] [address] Office Building One 2020-01-12 2020-01-12 Outpatient R VAZQUEZ, [facility] [id number] Univers 14:40:00 14:40:00 DULCE ity of [facility] [place] 2019-11-28 2019-11-28 Emergency Marychuy Magaña [facility] 1.2.84 0.114 [id number] Univers 18:27:00 21:33:00 Fransisca Oro [place] 350.1.13.10 ity [place] 4.2.7.2.686 [place] [phone] [address] 2019-11-28 2019-11-28 Emergency VijayMarychuy jenkins [facility] 1.2.84 0.114 [id number] 18:27:00 21:33:00 Fransisca Oro 350.1.13.10 [place] 4.2.7.2.686 [place] [phone] [facility] 2019-11-28 2019-11-28 Emergency X [facility] ERT [id number] Univers 17:52:00 17:52:00 ity of [facility] [place] Results Test Description Test Time Test Comments Results Result Sourc e Comments XR CHEST 2 VW 2019-11-02 Impression: No Univers ity of 0 acute abnormalities [facility] 00:35:04 evident. RL: 460 Branch End of Report Ordering Physician: ?MARYCHUY MAGAÑA History: [...] evident. Surgical clips areseen within the upper abdomen.IMPRESSIONI mpression:No acute abnormalities evident.RL: 460End of ReportElectronicall y signed by Brendan Jaramillo MD at 11/28/2019 7:35 PM Test, Serum 2019-11-29 00:30:00 Test Item Value Reference Range Interpretation Comme nts PREG SERUM (test code = 6162045204) Negative KALANI (test code = KALANI) Less than 10 IU/L. ?If low titer or ectopic is suspected, resubmit specimen in 48-72 hours. [id number] 00:27:00 Test Item Value Reference Range Interpretation Comments TROPONIN I (test 0.001 ng/mL See_Comment [Automated code = 8294936105) message] The system which generated this result [...] ? Lab Interpretation Normal (test code = 02923-1) [facility]ID TEST[facility])2019-11-29 00:21:00 Test Item Value Reference Range Interpretation Comments SARS-CoV-2 Rapid ID NOW Not Detected Not Detected (test code = 87256-4) KALANI (test code = KALANI) ID NOW COVID-19 Assay is an isothermal nucleic acid amplification test intended for the qualitative detection of nucleic acid from SARS-CoV-2 viral RNA in nasopharyngeal (FAMILY NURSE PRACTITIONER) specimens. It is used under Emergency Use [...] indicated. Lab Interpretation Normal (test code = 43504-7) [facility] (ALB, T.PRO, BILI T, BU/BC, ALT, AST, ALK PHOS)2019-11-29 00:18:00 Test Item Value Reference Range Interpretation Comments TOTAL BILI (test code = 1551940097) 0.5 mg/dL 0.1-1.1 BILI UNCON (test code = 5564674845) 0.7 mg/dL 0.1-1.1 BILI CONJ (test code = 7259588725) 0.0 mg/dL 0-0.3 T PROTEIN (test code = 8704697007) 8.3 g/dL 6.3-8.2 H ALBUMIN (test code = 1764158801) 4.3 g/dL 3.5-5 ALK PHOS (test code = 3603200607) 60 U/L 34-122 ALTv (test code = 1742-6) 20 U/L 5-35 AST(SGOT) (test code = 2464685640) 24 U/L 13-40 Lab Interpretation (test code = Abnormal 18707-6) [facility] Metabolic Panel (NA, K, CL, CO2, GLUCOSE, BUN, CREATININE, CA)2019-11-29 00:15:00 Test Item Value Reference Range Interpretation Comments NA (test code = 137 mmol/L 135-145 8820596390) K (test code = 3.8 mmol/L 3.5-5 3028171122) CL (test code = 101 mmol/L 98-108 2230778976) CO2 TOTAL (test code = 26 mmol/L 23-31 2224626057) AGAP (test code = 2-16 3890283210) BUN (test code = 8 mg/dL 7-23 1196339927) GLUCOSE (test code = 93 mg/dL 70-110 5292562879) CREATININE (test code 0.72 mg/dL 0.5-1.04 = 1564091637) CALCIUM (test code = 9.5 mg/dL 8.6-10.6 2837488280) eGFR Calculation mL/min/1.73m2 (Non-) (test code = 4842874574) eGFR Calculation mL/min/1.73m2 () (test code = 9475131593) KALANI (test code = KALANI) Association of [...] or urine or abnormalities in imaging tests). [facility] [id number] 00:15:00 Test Item Value Reference Range Interpretation Comments LIPASE (test code = 7191492113) 97 U/L 0-220 Lab Interpretation (test code = Normal 95538-7) [facility]2020-09-30 00:03:00 Test Item Value Reference Range Interpretation Comments APTT Patient (test See_Comment [Automat ed code = 3173-2) message] The system which generated this result transmitted reference range : 23 - 38 Seconds . The reference range was not used to interpr et this result as normal/abnormal . KALANI (test code = KALANI) The [facility] patient population mean normal value for aPTT is 30 seconds. Lab Interpretation Normal (test code = 86814-9) [facility] Hospital[facility]th[facility] Time (PT) / [id number] 00:01:00 Test Item Value Reference Range Interpretation [...] tions. Lab Interpretation (test Normal code = 94319-6) [facility] with [id number] 23:52:00 Test Item Value Reference Range Interpretation [...] RDW-SD (test code = 40.2 fL 39-49.9 10247-7) RDW-CV (test code = 12.8 % 12-15.5 788-0) PLT (test code = See_Comment [Automated 777-3) message] The sy stem which generated this result transmitted reference range : 166 - 358 10*3/ ?L. The reference r braden was not used to interpret this result as normal/abnormal . MPV (test code = 9.1 fL 9.5-12.9 L 02321-3) NRBC/100 WBC (test See_Comment [Automat ed code = 8896880590) message] The system which generated this result transmitted reference range : 0.0 - 10.0 /100 WBCs. The refer ence range was not u sed to interpret th is result as normal/abnormal . NRBC x10^3 (test code <0.01 See_Comment [Auto mated = 7298886068) message] The s ystem which generated this result transmitted reference range : 10*3/?L. The reference range was not used to interpret this result as normal/abnormal . GRAN MAT (NEUT) % 60.4 % (test code = 770-8) IMM GRAN % (test code 0.10 % = 3816520146) LYMPH % (test code = 33.1 % 736-9) MONO % (test code = 5.6 % 5905-5) EOS % (test code = 0.5 % 713-8) BASO % (test code = 0.3 % 706-2) GRAN MAT x10^3(ANC) 5.98 10*3/uL 1.88-7.09 (test code = 2357523128) IMM GRAN x10^3 (test <0.03 0-0.06 code = 1988369523) LYMPH x10^3 (test code 3.27 10*3/uL 1.32-3.29 = 731-0) MONO x10^3 (test code 0.55 10*3/uL 0.33-0.92 = 742-7) EOS x10^3 (test code = 0.05 10*3/uL 0.03-0.39 711-2) BASO x10^3 (test code 0.03 10*3/uL 0.01-0.07 = 704-7) Lab Interpretation Abnormal (test code = 79684-7) [facility]"
--- NOTE | 2021-09-30 11:55 | RAD REPORT ---
EXAM DESCRIPTION: CT - Stone Protocol - 09/30/2021 11:24 am CLINICAL HISTORY: abdominal pain, right sided COMPARISON: Abdomen Pelvis Wo Contrast dated 01/30/2021; Stone Protocol dated 05/29/2020; CT ABDOMEN PELVIS WO CONTRAST dated 05/10/2008 TECHNIQUE: Axial 3 mm thick images were obtained without oral or IV contrast. The [id number] span s the entirety of the system including uppermost abdomen and lung bases. All CT scans are performed using dose optimization technique as appropriate and may include automated exposure control or mA/KV adjustment according to patient size. FINDINGS: No hydronephrosis is present and no obstructing ureteral calculi. No nonobstructing calcul i in either kidney. No suspicious renal masses. Isodense masses and pyelonephritis are not excluded o n a stone protocol CT scan. Numerous pelvic floor phleboliths are present. No significant adrenal fin ding. No urinary bladder suspicious finding. Uterus is absent. Both ovaries show lobulated contour with multiple cysts identifiable. Detail is taylor ited on noncontrast imaging. Pattern is not grossly different back to April 2020. Follow-up outpatien t pelvic sonography can be performed if the patient has pain localizing to the pelvis. Liver is prominent at 19 cm craniocaudal dimension. Fatty infiltration has developed throughout the l iver. In the subcapsular dome there is a 4 centimeter slightly lobulated poorly defined area of more hyperdense parenchyma. This is probably normal density liver parenchyma. This could be an area of spa red parenchyma. Adenoma or other hepatic mass cannot be excluded. Outpatient contrast MRI abdomen rohan ging could be performed for further characterization. No additional liver lesions seen. Spleen and pancreas show no suspicious findings peer cholecystectomy clips are present with no biliar y tree dilatation. No suspicious bowel findings. No hernia, mass or bulky lymphadenopathy noted. No free air, free fluid or inflammatory stranding. No significant bony abnormality. IMPRESSION: No hydronephrosis, obstructing calculus or acute finding. Isodense masses and pyelonephritis are not excluded on stone protocol technique. Bilateral ovarian cysts are present creating lobulated contour to each ovary. Largest cyst on the lef t is 3 cm. These are probably functional and are without a substantial change in the ovarian appearan ce compared to January 2021. Given the patient's age, ovaries can be monitored for further evaluated with outpatient pelvic sonography. Fat infiltration has involved the liver which measures 19 cm in craniocaudal dimension. A 4 centimete r area of normal attenuation liver parenchyma seen in the subcapsular dome. This could be normal spar ed parenchyma. Adenoma or other mass lesion cannot be excluded. Follow-up outpatient contrast MRI abd omen imaging could be performed for further characterization.
[2021-09-30 13:08] LABS: Albumin 3.4 g/dL (3.4-5.0); Bilirubin Total 0.3 mg/dL (0.2-1.0); Potassium 4.6 mmol/L (3.5-5.1)
[2021-09-30] MEDS ORDERED: KETOROLAC 30 MG/ML INJ ONE (13:39)
[2021-09-30] MEDS ORDERED: MORPHINE 4 MG/ML SYR ONE (13:42)
[2021-09-30 16:01] VITALS: TEMP 98.2
[2021-09-30 16:08] VITALS: O2SAT 100
[2021-09-30 16:13] VITALS: BP 127/81
--- NOTE | 2021-10-01 10:12 | EDPHYS ---
Physician Documentation [facility] Name: Renee Castellon Age: 46 yrs Sex: Female : 1975 Arrival Date: 09/30/2021 Time: 09:50 Bed 2 Private MD: Juan R Batres T ED Physician Km Arambula HPI: 09/30 10:03 This 46 yrs old Female presents to ER via Ambulatory with complaints of Abdominal Pain. jmm 10:03 The patient presents with abdominal pain in the right upper quadrant, right lower jmm quadrant. Onset: The symptoms/episode began/occurred gradually. The symptoms radiate to right back. Associated signs and symptoms: Pertinent positives: nausea. The symptoms are described as achy. This is a 46 year old female with a history of GERD that presents to the ED with complaints of right upper and lower quadrant pain. Pain radiates to the back. No recent abdominal surgeries. Denies fever. Denies diarrhea. 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 ROS: 10:03 Constitutional: Negative for fever, chills, and weight loss, Cardiovascular: Negative jmm for chest pain, palpitations, and edema, Respiratory: Negative for shortness of breath, cough, wheezing, and pleuritic chest pain. 10:03 Abdomen/GI: Positive for abdominal pain, nausea and vomiting. 10:03 All other systems are negative. Exam: 10:03 Constitutional: This is a well developed, well nourished patient who is awake, alert, jmm and in no acute distress. Head/Face: atraumatic. Eyes: EOMI, no conjunctival erythema appreciated ENT: Moist Mucus Membranes Neck: Trachea midline, Supple Chest/axilla: Normal chest wall appearance and motion. Cardiovascular: Regular rate and rhythm. No edema appreciated Respiratory: Normal respirations, no respiratory distress appreciated 10:03 Back: Normal ROM Skin: General appearance color normal MS/ Extremity: Moves all extremities, no obvious deformities appreciated, no edema noted to the lower extremities Neuro: Awake and alert Psych: Behavior is normal, Mood is normal, Patient is cooperative and pleasant 10:03 Abdomen/GI: Inspection: abdomen appears normal, Bowel sounds: normal, Palpation: soft, mild abdominal tenderness, in the right upper quadrant and right lower quadrant. Vital Signs: 10:00 BP 130 / 105; Pulse 93; Resp 16; Temp 98.2; Pulse Ox 100% on R/A; Weight 92.08 kg; iw Height 5 ft. 7 in. (170.18 cm); Pain 8/10; 10:57 BP 130 / 82; Pulse 83; Resp 17; Pulse Ox 98% on R/A; tw2 11:55 BP 124 / 81; Pulse 65; Resp 17; Pulse Ox 100% on R/A; tw2 12:56 BP 123 / 84; Pulse 64; Resp 17; Pulse Ox 100% on R/A; tw2 14:37 BP 127 / 81; Pulse 67; Resp 16; Pulse Ox 100% ; bp 10:00 Body Mass Index 31.79 (92.08 kg, 170.18 cm) iw MDM: 10:03 Patient medically screened. [facility] 10:29 Data reviewed: vital signs, nurses notes. Counseling: I had a detailed discussion with [facility] the patient and/or guardian regarding:. 13:59 Counseling: I had a detailed discussion with the patient and/or guardian regarding: the [facility] historical points, exam findings, and any diagnostic results supporting the discharge/admit diagnosis, lab results, radiology results, the need for outpatient follow up, to return to the emergency department if symptoms worsen or persist or if there are any questions or concerns that arise at home. ED course: Patient is alert nontoxic in appearance in the ED. Symptoms are partially alleviated in the ED. I did discuss results with the patient along with the need to follow-up with gastroenterology for further evaluation of the lesion however. Patient otherwise given strict return precautions. Patient understood and agrees plan of care.. 09/30 10:16 Order name: Urine Dipstick-Ancillary; Complete Time: 10:17 EDOR 09/30 10:23 Order name: CBC with Diff; Complete Time: 11:29 [facility] 09/30 10:23 Order name: CMP; Complete Time: 13:10 [facility] 09/30 10:23 Order name: Lipase; Complete Time: 13:10 [facility] 09/30 10:24 Order name: Urine --Ancillary (enter results); Complete Time: 10:42 09/30 10:58 Order name: CT Stone Protocol; Complete Time: 11:56 [facility] 09/30 10:23 Order name: IV Saline Lock; Complete Time: 10:39 [facility] 09/30 10:23 Order name: Labs collected and sent; Complete Time: 10:39 [facility] 09/30 10:58 Order name: Labs - recollect needed: recollect green and lavender; Complete Time: 11:26 09/30 11:30 Order name: Labs - recollect needed: recollect green top again; Complete Time: 11:44 bd Administered Medications: 10:45 Drug: Zofran (Ondansetron) 4 mg Route: IVP; Site: right forearm; bp 14:40 Follow up: Response: No adverse reaction bp 10:45 Drug: morphine 2 mg Route: IVP; Infused Over: 4 mins; Site: right forearm; bp 14:40 Follow up: Response: Pain is decreased bp 10:45 Drug: Ativan (LORazepam) 0.5 mg Route: IVP; Site: right forearm; bp 14:40 Follow up: Response: No adverse reaction bp 10:45 Drug: Pepcid (famotidine) 20 mg Route: IVP; Site: right forearm; bp 14:40 Follow up: Response: No adverse reaction bp 13:40 Drug: morphine 4 mg Route: IVP; Infused Over: 4 mins; Site: left antecubital; bp 14:40 Follow up: Response: Pain is decreased bp 13:40 Drug: Ketorolac 30 mg Route: IVP; Site: left antecubital; bp 14:39 Follow up: Response: No adverse reaction; Pain is decreased bp Disposition Summary: 09/30/21 14:00 Discharge Ordered Location: Home [facility] Condition: Stable [facility] Diagnosis - Other abdominal pain [facility] Followup: [facility] - With: Sabas Duran MD - When: 2 - 3 days - Reason: Recheck today's complaints, Continuance of care, Re-evaluation by your physician Discharge Instructions: - Discharge Summary Sheet [facility] - Abdominal Pain, Adult [facility] Forms: - Medication Reconciliation Form jmm - Thank You Letter jmm - Antibiotic Education jmm - Prescription Opioid Use jm - Work release form Prescriptions: - Pepcid 20 mg Oral Tablet - take 1 tablet by ORAL route every 12 hours for 10 days; 20 tablet; Refills: 0, jmm Product Selection Permitted - dicyclomine 20 mg Oral Tablet - take 1 tablet by ORAL route 3 times per day; 30 tablet; Refills: 0, Product [facility] Selection Permitted - Carafate 1 gram Oral Tablet - take 1 tablet by ORAL route 4 times per day take on an empty stomach, beginning jmm on waking and last dose at bedtime; 100 tablet; Refills: 0, Product Selection Permitted Signatures: Dispatcher [employer] Magdalena Pereira Corey, MD MD cha Mickail, Joel, PA PA jmm Williams, Irene, FRANCES RN Brendan Montes RN RN
--- NOTE | 2021-10-01 10:12 | ER ---
Nurse's Notes [facility] Name: Renee Castellon Age: 46 yrs Sex: Female : 1975 Arrival Date: 09/30/2021 Time: 09:50 Bed 2 Private MD: Juan R Batres T Diagnosis: Other abdominal pain Presentation: 09/30 10:00 Chief complaint: Patient states: couple weeks ago she had throbbing to RUQ intermittent iw and then last night the pain was worse and wrapped around her back and she had pain in her shoulder blade last night, does not gave a gallbladder or appendix. Coronavirus screen: At this time, the client does not indicate any symptoms associated with coronavirus-19. Ebola Screen: Patient negative for fever greater than or equal to 101.5 degrees Fahrenheit, and additional compatible Ebola Virus Disease symptoms Patient denies exposure to infectious person. Patient denies travel to an Ebola-affected area in the 21 days before illness onset. No symptoms or risks identified at this time. Initial Sepsis Screen: Does the patient meet any 2 criteria? No. Patient's initial sepsis screen is negative. Does the patient have a suspected source of infection? No. Patient's initial sepsis screen is negative. Risk Assessment: Do you want to hurt yourself or someone else? Patient reports no desire to harm self or others. Onset of symptoms was September 23, 2021. 10:00 Method Of Arrival: Ambulatory iw 10:00 Acuity: MICH 3 iw Triage Assessment: 10:00 General: Appears in no apparent distress. uncomfortable, Behavior is calm, cooperative, bp appropriate for age. 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 Screenin:57 Abuse screen: Denies threats or abuse. Nutritional screening: No deficits noted. tw2 Tuberculosis screening: No symptoms or risk factors identified. Fall Risk None identified. Assessment: 10:57 Reassessment: Patient appears in no apparent distress at this time. No changes from tw2 previously documented assessment. Patient and/or family updated on plan of care and expected duration. Pain level reassessed. Patient is alert, oriented x 3, equal unlabored respirations, skin warm/dry/pink. 11:55 Reassessment: Patient appears in no apparent distress at this time. Patient and/or tw2 family updated on plan of care and expected duration. Pain level reassessed. Patient is alert, oriented x 3, equal unlabored respirations, skin warm/dry/pink. 12:57 Reassessment: Patient appears in no apparent distress at this time. No changes from tw2 previously documented assessment. Patient and/or family updated on plan of care and expected duration. Pain level reassessed. Patient is alert, oriented x 3, equal unlabored respirations, skin warm/dry/pink. 14:37 Reassessment: PT D/C HOME AMBULATORY, DX WITH ABDOMINAL PAIN. bp 14:37 Pain: Denies pain. GI: Bowel sounds present X 4 quads. Abd is soft X 4 quads. bp Vital Signs: 10:00 BP 130 / 105; Pulse 93; Resp 16; Temp 98.2; Pulse Ox 100% on R/A; Weight 92.08 kg; iw Height 5 ft. 7 in. (170.18 cm); Pain 8/10; 10:57 BP 130 / 82; Pulse 83; Resp 17; Pulse Ox 98% on R/A; tw2 11:55 BP 124 / 81; Pulse 65; Resp 17; Pulse Ox 100% on R/A; tw2 12:56 BP 123 / 84; Pulse 64; Resp 17; Pulse Ox 100% on R/A; tw2 14:37 BP 127 / 81; Pulse 67; Resp 16; Pulse Ox 100% ; bp 10:00 Body Mass Index 31.79 (92.08 kg, 170.18 cm) ED Course: 09:50 Patient arrived in ED. mr 09:50 Juan R Batres MD is Private Physician. mr 09:55 Fredy Perez [facility] 09:55 Km Arambula MD is Attending Physician. [facility] 10:02 Triage completed. iw 10:02 Arm band placed on. iw 10:03 Bed in low position. Call light in reach. Pulse ox on. NIBP on. tw2 10:05 Brendan Montes, RN is Primary Nurse. bp 10:39 Inserted saline lock: 20 gauge in right forearm, using aseptic technique. Blood bp collected. 11:26 CT Stone Protocol In Process Unspecified. EDMS 14:00 Sabas Duran MD is Referral Physician. [facility] 14:39 No provider procedures requiring assistance completed. IV discontinued, intact, bp bleeding controlled, No redness/swelling at site. Pressure dressing applied. Administered Medications: 10:45 Drug: Zofran (Ondansetron) 4 mg Route: IVP; Site: right forearm; bp 14:40 Follow up: Response: No adverse reaction bp 10:45 Drug: morphine 2 mg Route: IVP; Infused Over: 4 mins; Site: right forearm; bp 14:40 Follow up: Response: Pain is decreased bp 10:45 Drug: Ativan (LORazepam) 0.5 mg Route: IVP; Site: right forearm; bp 14:40 Follow up: Response: No adverse reaction bp 10:45 Drug: Pepcid (famotidine) 20 mg Route: IVP; Site: right forearm; bp 14:40 Follow up: Response: No adverse reaction bp 13:40 Drug: morphine 4 mg Route: IVP; Infused Over: 4 mins; Site: left antecubital; bp 14:40 Follow up: Response: Pain is decreased bp 13:40 Drug: Ketorolac 30 mg Route: IVP; Site: left antecubital; bp 14:39 Follow up: Response: No adverse reaction; Pain is decreased bp Medication: 10:00 VIS not applicable for this client. bp Outcome: 14:00 Discharge ordered by . [facility] 14:39 Discharged to home ambulatory. bp 14:39 Condition: stable 14:39 Discharge instructions given to patient, Instructed on discharge instructions, follow up and referral plans. medication usage, Demonstrated understanding of instructions, follow-up care, medications, Prescriptions given X 3. 14:53 Patient left the ED. tw2 Signatures: Dispatcher [employer] EDMS Fredy Perez PA PA Nickie Zeng Irene, FRANCES RN iw Gemma Smith RN RN tw2 Brendan Montes, FRANCES RN bp
== END 2021-09-30 14:53 | disposition home or self-care (01) ==
LOC: ER 09:46
DX: R10.9 Unspecified abdominal pain (principal); R11.2 Nausea with vomiting, unspecified; K21.9 Gastro-esophageal reflux disease without esophagitis; Z88.5 Allergy status to narcotic agent; Z91.013 Allergy to seafood; Z91.048 Other nonmedicinal substance allergy status
CPT/HCPCS: 85025; 36415; 81025; 81003; 83690; 80053; 76377; 74176; J2270; J7030; J2405; 99284

== ENCOUNTER 2022-03-25 08:41 | Emergency (ER) | payer OTHER ==
--- OUTSIDE RECORDS SUMMARY | 2022-03-25 08:45 | XMS REPORT | Continuity of Care Document ---
:1975 Author Organization [facility] t Address [address] [place] [address] Care Team Providers Name Role Phone JOSE VELEZ Primary Care Physician Unavailable GLADYS ENGEL Attending Clinician Unavailable KANE TO Attending Clinician Unavailable Lukasz Rodriguez MD Attending Clinician Rikki Roman MD Attending Clinician Kane To MD Attending Clinician VANCE DURAN Attending Clinician Unavailable Vance Duran MD Attending Clinician Doctor Unassigned, [place] Attending Clinician Unavailable Only, Ang Db Test Attending Clinician Unavailable Elena Rivas Attending Clinician ELENA MCRAE Attending Clinician Unavailable Nataly Noonan MD Attending Clinician [phone] PAVITHRA BEARD Attending Clinician Unavailable Lab, Adc Fam Pob I Attending Clinician Unavailable Pavithra Krishnamurthy Attending Clinician Sahra Sanchez PA-C Attending Clinician SAHRA SANCHEZ Attending Clinician Unavailable KELLIE PARADA Attending Clinician Unavailable Kellie Franklin Attending Clinician Dulce Elizondo Attending Clinician DULCE SHUKLA Attending Clinician Unavailable Marychuy Magaña MD Attending Clinician Fransisca Oro MD Attending Clinician RIKKI ROMAN Admitting Clinician Unavailable Rikki Roman MD Admitting Clinician VANCE DURAN Admitting Clinician Unavailable Payers Payer Name Policy Type Policy Number Effective Date Expiration Date S yadee [facility] [id number] 2019 PPO 00:00:00 Problems Condition Condition Condition Status Onset Resolution Last Treating Co mments Source Name Details Category Date Date Treatment Clinician Date Chest pain Chest pain Disease Active 2021-03 U nivers 03-16 ity of 00:00: [address] Obesity Obesity Disease Active 2021-03 Univers (BMI (BMI -16 ity of 30-39.9) 30-39.9) 00:00: [address] No known No known Disease Kelse y active active Seybold problems problems Allergies, Adverse Reactions, Alerts Allergy Allergy Status Severity Reaction(s) Onset Inactive Treating Comm ents Source Name Type Date Date Clinician IODINE DRUG Active Anaphylaxis Unive rs INGREDI 11-27 ity of 00:00: [address] Iodine Propensi Active Anaphylaxis Anaphylax Imani ty to 11-27 is Seybold adverse 00:00: despite reaction 00 steroid s pretreatm ent for CT with contrast; also shellfish anaphylax is NO KNOWN Drug Active Univers ALLERGIE Class ity of S [facility] Social History Social Habit Start Date Stop Date Quantity Comments Source History of tobacco Cigarette Smoker University of use [facility] Cigarettes smoked 2022-01-15 2022-01-15 Univers ity of current (pack per 00:00:00 00:00:00 [facility] ) - Reported [place] Cigarette 2022-01-15 2022-01-15 University of pack-years 00:00:00 00:00:00 [facility] Tobacco use and 2022-01-15 2022-01-15 Smokeless Universit y of exposure 00:00:00 00:00:00 tobacco non-user [facility] Alcohol intake 2022-01-15 2022-01-15 University 00:00:00 00:00:00 [facility] Alcohol Comment 2022-01-15 2022-01-15 social Universit y of 00:00:00 00:00:00 [facility] Exposure to 2022-01-04 2022-01-14 Not sure [facility]-CoV-2 (event) 00:00:00 17:53:00 [facility] Education 2022-01-14 2022-01-14 16 [facility] 00:00:00 00:00:00 [facility] Tobacco Comment 2022-01-14 2022-01-14 Used to vape but Uni versity of 00:00:00 00:00:00 quit that also. [facility] Sex Assigned At [birth year] Imani ybold 00:00:00 00:00:00 Smoking Status Start Date Stop Date Source Ex-smoker 2022-01-15 00:00:00 2022-01-15 [place] 00:00:00 [facility] Never smoked tobacco Imani Seyb old Tobacco smoking [facility] xa consumption unknown Medical Bran ch Medications Ordered Filled Start Stop Current Ordering Indication Dosage Frequency Signature Comments Components Source Medication Medication Date Date Medication? Clinician (SIG) Name Name enoxaparin 2021-03 Yes 40mg 40 mg, Unive rs (LOVENOX) 18 Subcutaneo ity of injection 03:00: us, Q24H, Y[place] as 40 mg 00 First dose Medical on [facility] Branch 01/15/22 at 2100, Until Discontinu ed, Routine omeprazole 2021-03 Yes 40mg Take 40 mg U nivers 40 mg -17 by mouth ity of capsule 17:39: daily. [address] famotidine 2021-03 Yes 20mg Take 20 mg U nivers 20 mg -17 by mouth 2 ity of tablet 17:39: (two) [place] [id number] times Medical daily. Branch zolpidem 10 2021-03 Yes 10mg Take 10 mg Univers mg tablet 17 by mouth ity of 17:39: at bedtime [place] [id number] as needed Medical for Branch Insomnia. tc 2021-03- No [id number] 6.3mCi 6.3 Unive rs 99m-albumin 03-17 millicurie i ty of (DRAXIMAGE 15:15: 15:10 , [place] MAA) 00 :00 Intravenou Medical injection s, ONCE, 1 Bran ch 6.3 dose, On millicurie [place] 01/15/22 at 0915, Routine omeprazole 2021-03 Yes 40mg 40 mg, Unive rs (PRILOSEC) 03-17 Oral, ity of capsule 40 15:00: DAILY, [place] mg 00 First dose Medical on [place] Branch 01/15/22 at 0900, Until Discontinu ed zolpidem 2021-03 Yes 5mg 5 mg, Univers (AMBIEN) 03-17 Oral, ity of tablet 5 mg 06:21: QHSPRN, [place] as 03 Starting Medical on [place] Branch 01/15/22 at 0021, Until Discontinu ed, Routine, Insomnia ketorolac 2021-03 No 15mg 15 mg, Unive rs (TORADOL) 03-17 Slow IV ity of injection 01:00: 06:33 Push, Q6H, [place] 15 mg 00 :00 2 doses, Medical First dose Branch (after last reorder) on Wed01/14/22 at 1900, Last dose on Wed01/15/22 at 0000, CARLA oxyCODONE 2021-03 Yes 5mg 5 mg, Univers immediate 03-17 Oral, ity of release 00:51: Q4HPRN, [place] tablet 5 mg 56 Starting Medi estefania on Wed Branch 01/14/22 at 1851, Until Discontinu ed, Routine, Pain (scale 7-10)<b 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 Indication s: acute pain acetaminoph 2021-03 Yes 650mg 650 mg, Un becca en 03-16 Oral, ity of (TYLENOL) 23:32: Q6HPRN, [place] tablet 650 02 Starting Medic al mg on Wed Branch 01/14/22 at 1732, Until Discontinu ed, Routine, Pain (scale 1-3) ondansetron 2021-03- No 4mg 4 mg, Slow Univers (ZOFRAN 03-16 IV Push, ity of (PF)) 22:45: 21:47 ONCE, 1 [place] injection 4 00 :00 dose, On Medi estefania mg Wed Branch 01/14/22 at 1645, CARLA morpHINE (4 2021-03 No 4mg 4 mg, Slow Univers mg/mL) 03-16 IV Push, ity of injection 4 21:45: 21:47 ONCE, 1 [place] mg 00 :00 dose, On Medical Wed Branch 01/14/22 at 1545, STAT ketorolac 2021-03- No 30mg 30 mg, Unive rs (TORADOL) 03-16 Slow IV ity of injection 21:00: 20:26 Push, [place] 30 mg 00 :00 ONCE, 1 Medical dose, On Branch Wed01/14/22 at 1500, CARLA esomeprazol 2021-03- No 40mg Take 40 mg Univers e 20 mg 03-16 by mouth ity of capsule 17:59: 00:00 in the [place] 51 :00 morning. Medical Takes 2 in Branch the morning only. gadobenate 2021- No [id number] .2mL/kg 0.2 mL/kg, Univers dimeglumine 11-21 Intravenou i ty of (MULTIHANCE 14:30: 14:22 s, ONCE, 1 [place] -20 mL) 00 :00 dose, On Medical injection Wed Branch 0.2 mL/kg 11/21/21 at 0930, Routine Esomeprazol 2020-03 Yes 20mg Take 20 mg Imani e Magnesium 0-20 by mouth Seyb old 20 MG oral 10:41: every Delayed 38 morning Release (before Capsule breakfast) Famotidine 2021-1 Yes 20mg Take 20 mg K elsey (PEPCID) 20 0-20 by mouth 2 Se ybold MG oral 10:41: times tablet 38 daily Amoxicillin 2020-03 Yes [id number] 1{tbl} Take 1 Imani -Pot 0-20 tablet by Seybold Clavulanate 00:00: mouth 2 875-125 MG 00 times oral Tablet daily Trazodone 2020-03 Yes [id number] 50mg QD Take 1 K elsey HCl 50 MG 0-20 tablet (50 Seyb old oral Tablet 00:00: mg total) 00 by mouth nightly as needed for sleep ketorolac 2020- No 15mg 15 mg, Unive rs (TORADOL) 11-28 Slow IV ity of injection 05:00: 04:59 Push, Q6H, [place] 15 mg 00 :00 4 doses, Medical First dose Branch on Wed11/29/19 at 0000, Last dose on Wed11/29/19 at 1800, Routine
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 approving Restricted medication : MARYCHUY MAGAÑA proMETHazin 2019- No 25mg 25 mg, IV Univers e 11-28 Piggyback, ity of (PHENERGAN) 02:45: 01:41 ONCE, 1 [place] 25 mg in 00 :00 dose, Tue Medica l NaCl 0.9% 11/28/19 at [facility] (NS) 50 mL 2145, 50 piggyback mL ondansetron 2019- No 4mg 4 mg, Slow Univers (ZOFRAN 11-28 IV Push, ity of (PF)) 02:00: 01:04 ONCE, 1 [place] injection 4 00 :00 dose, Tue Med ical mg 11/28/19 at Branch 2100, CARLA pantoprazol 2020- No 40mg 40 mg, IV Univers e 11-28 Piggyback, ity of (PROTONIX) 02:00: 01:18 ONCE, 1 [place] as 40 mg in 00 :00 dose, Tue Medica l NaCl 0.9% 11/28/19 at [facility] (NS) 100 mL 2100, 100 MINI-BAG mL FENTanyl PF 2019- No 50ug 50 mcg, Un becca (SUBLIMAZE 11-28 Slow IV ity o f (PF)) 02:00: 01:03 Push, [place] injection 00 :00 ONCE, 1 Medical 50 mcg dose, [facility] 11/28/19 at 2100, Routine ondansetron 2020-0 2020- No 4mg 4 mg, Slow Univers (ZOFRAN 11-28 IV Push, ity of (PF)) 00:45: 23:47 ONCE, 1 [place] injection 4 00 :00 dose, [facility] Med ical mg 11/28/19 at [place] 194, CARLA morpHINE 2020-0 2020- No 4mg 4 mg, Slow Un becca injection 4 11-28 IV Push, ity of mg 00:45: 23:47 ONCE, 1 [place] 00 :00 dose, [facility] 11/28/19 at [place] 194, STAT aspirin 2020-0 2020- No 325mg 325 mg, Unive rs tablet 325 11-27 Oral, ity of mg 23:45: 23:41 ONCE, 1 [place] 00 :00 dose, [facility] 11/28/19 at [place] 1845, STAT esomeprazol 2020-0 Yes 20mg Take 20 mg Univers e (NEXIUM) - by mouth ity o f 20 mg 23:27: daily [place] capsule 23 before a Medical meal. Branch omeprazole 2020-0 Yes 40mg Take 40 mg U nivers 40 mg - by mouth ity of capsule 23:27: daily. [address] famotidine 2020-0 Yes 20mg Take 20 mg U nivers (PEPCID) 20 11-27 by mouth 2 it y of mg tablet 23:27: (two) [place] [address] times Medical daily. Branch zolpidem 2020-0 Yes 10mg Take 10 mg Uni vers (AMBIEN) 10 - by mouth ity of mg tablet 23:27: at bedtime [place] 23 as needed Medical for Branch Insomnia. esomeprazol 2020-0 Yes 20mg Take 20 mg Univers e (NEXIUM) - by mouth ity o f 20 mg 23:27: daily [place] capsule 23 before a Medical meal. Branch omeprazole 2020-0 Yes 40mg Take 40 mg U nivers 40 mg - by mouth ity of capsule 23:27: daily. [address] famotidine 2020-0 Yes 20mg Take 20 mg [...] by mouth ity of capsule 23:27: daily. [place] [address] Medical Branch famotidine 2020-0 Yes 20mg Take [...] by mouth ity of capsule 23:27: daily. [place] [address] Medical Branch famotidine 2020-0 Yes 20mg Take [...] by mouth ity of capsule 23:27: daily. [place] [address] Medical Branch famotidine 2020-0 Yes 20mg Take 20 mg U nivers (PEPCID) 20 9-29 by mouth 2 it y of mg tablet 23:27: (two) [place] 23 times Medical daily. Branch zolpidem 2020-0 [...] by mouth ity of capsule 23:27: daily. [place] [address] Medical Branch famotidine 2020-0 Yes 20mg Take 20 mg U nivers (PEPCID) 20 9-29 by mouth 2 it y of mg tablet 23:27: (two) [place] 23 times Medical daily. Branch zolpidem 2020-0 [...] by mouth ity of capsule 23:27: daily. [place] [address] Medical Branch famotidine 2020-0 Yes 20mg Take 20 mg U nivers (PEPCID) 20 9-29 by mouth 2 it y of mg tablet 23:27: (two) [place] 23 times Medical daily. Branch zolpidem 2020-0 [...] by mouth ity of capsule 18:27: daily. [place] [address] Medical Branch famotidine 2020-0 Yes 20mg Take 20 mg U nivers (PEPCID) 20 9-29 by mouth 2 it y of mg tablet 18:27: (two) [place] 23 times Medical daily. Branch zolpidem 2020-0 [...] by mouth ity of capsule 18:27: daily. [place] [address] Medical Branch famotidine 2020-0 Yes 20mg Take 20 mg U nivers (PEPCID) 20 9-29 by mouth 2 it y of mg tablet 18:27: (two) [place] 23 times Medical daily. Branch zolpidem 2020-0 Yes 10mg Take 10 mg Uni vers (AMBIEN) 10 9-29 by mouth ity of mg tablet 18:27: at bedtime [place] 23 as needed Medical for Branch Insomnia. esomeprazol 2020-0 Yes 20mg Take 20 mg Univers e (NEXIUM) 9-29 by mouth ity o f 20 mg 18:27: daily [place] capsule 23 before a Medical meal. Branch omeprazole 2020-0 Yes 40mg Take 40 mg U nivers 40 mg 9-29 by mouth ity of capsule 18:27: daily. [place] [address] Medical Branch famotidine 2020-0 Yes 20mg Take 20 mg U nivers (PEPCID) 20 9-29 by mouth 2 it y of mg tablet 18:27: (two) [place] 23 times Medical daily. Branch zolpidem 2020-0 [...] Indication s: acute pain proMETHazin 2020-0 Yes [id number] 25mg Take 1 Univers e 25 mg [...] Indication s: acute pain proMETHazin 2020-0 Yes [id number] 25mg Take 1 Univers e 25 mg [...] Indication s: acute pain proMETHazin 2020-0 Yes [id number] 25mg Take 1 Univers e 25 mg [...] Indication s: acute pain proMETHazin 2020-0 Yes [id number] 25mg Take 1 Univers e 25 mg [...] Indication s: acute pain proMETHazin 2020-0 Yes [id number] 25mg Take 1 Univers e 25 mg [...] Indication s: acute pain proMETHazin 2020-0 Yes [id number] 25mg Take 1 Univers e 25 mg [...] Indication s: acute pain proMETHazin 2020-0 Yes [id number] 25mg Take 1 Univers e 25 mg [...] Indication s: acute pain proMETHazin 2020-0 Yes [id number] 25mg Take 1 Univers e 25 mg [...] Indication s: acute pain proMETHazin 2020-0 Yes [id number] 25mg Take 1 Univers e 25 mg [...] (scale 7-10). Indication s: acute pain proMETHazin Yes [id number] 25mg Take 1 Univers e 25 mg 9-29 tablet by ity of tablet 00:00: mouth [place] 00 every 6 Medical (six) Branch hours as needed for Nausea and Vomiting (N/V). traMADoL 2021- No [id number] 50mg Take 1 Univer s (ULTRAM) 50 9-29 11-16 tablet by it y of mg tablet 00:00: 00:00 mouth [place] 00 :00 every 6 Medical (six) Branch hours as needed for Pain (scale 7-10). Indication s: acute pain proMETHazin 2021- No [id number] 25mg Take 1 Univers e 25 mg 9-29 11-16 tablet by ity of tablet 00:00: 00:00 mouth [place] 00 :00 every 6 Medical (six) Branch hours as needed for Nausea and Vomiting (N/V). Immunizations Ordered Immunization Filled Immunization Date Status Commen ts Source Name Name Tdap- (Boostrix, 2016-01-29 Completed Imani delgado Adacarolina) 00:00:00 Vital Signs Vital Name Observation Time Observation Value Comments Source Systolic blood 2022-01-15 22:39:00 132 mm[Hg] Univer sity [facility] Diastolic blood 2022-01-15 22:39:00 81 mm[facility]Hg[facility] 2022-01-15 22:39:00 81 /min [facility] Body temperature 2022-01-15 22:39:00 35.83 [place] [facility] Respiratory rate 2022-01-15 22:39:00 16 /min [facility] Oxygen saturation in 2022-01-15 22:39:00 100 /min [facility] Arterial blood by [facility] Pulse oximetry Branch Body weight 2022-01-15 09:06:00 89.495 kg [facility] BMI 2022-01-15 09:06:00 30.90 kg/m2 Universi ty [facility] Medical Branch Body height 2022-01-15 00:03:[address] [facility] Medical Branch Systolic blood 2020-12-18 15:39:00 120 mm[Hg] Imani Alcocerybestevan pressure Diastolic blood 2020-12-18 15:39:00 74 mm[Hg] Julián y Seybold pressure Heart rate 2020-12-18 15:39:00 83 /min Imani woodruffbold Body temperature 2020-12-18 15:39:00 37.06 Carolina Macarena woodruff Seybold Respiratory rate 2020-12-18 15:39:00 15 /min Macarena woodruff [place] Body height 2020-12-18 15:39:00 170.2 cm Imani woodruffbold Body weight 2020-12-18 15:39:00 95.709 kg Imani woodruffbold BMI 2020-12-18 15:39:00 33.05 kg/m2 Imani woodruffbold Oxygen saturation in 2020-12-18 15:39:00 99 /min Imani Damico Arterial blood by Pulse oximetry Heart rate 2020-01-12 17:00:00 83 /min Universi ty of [place] Medical [facility] Respiratory rate 2020-01-12 17:00:00 19 /min [facility] [place] [facility] Oxygen saturation in 2020-01-12 17:00:00 97 /min University Arterial blood by [facility] Pulse oximetry Branch Heart rate 2020-01-12 17:00:00 83 /min Universi ty [facility] Medical Branch Respiratory rate 2020-01-12 17:00:00 19 /min Univ ersity of [place] [facility] Oxygen saturation in 2020-01-12 17:00:00 97 /min University of Arterial blood by [facility] Pulse oximetry Branch Systolic blood 2019-11-29 01:00:00 135 mm[Hg] Waldemar herrera of pressure [place] [facility] Diastolic blood 2019-11-29 01:00:00 81 mm[Hg] Davide rsity of pressure [place] [facility] Heart rate 2019-11-29 01:00:00 72 /min Universi ty of [place] [facility] Respiratory rate 2019-11-29 01:00:00 20 /min [facility] [place] [facility] Oxygen saturation in 2019-11-29 01:00:00 98 /min University of Arterial blood by [facility] Pulse oximetry Branch Body temperature 2019-11-28 23:21:00 37.56 [place] [facility] ersity [facility] Body height 2019-11-28 23:21:00 170.2 cm Universi ty of [facility] Body weight 2019-11-28 23:21:00 90.719 kg Universi ty of [facility] BMI 2019-11-28 23:21:00 31.32 kg/m2 Universi ty [facility] Systolic blood 2019-11-29 01:00:00 135 mm[Hg] Univer sity of pressure [facility] Diastolic blood 2019-11-29 01:00:00 81 mm[Hg] [facility] Heart rate 2019-11-29 01:00:00 72 /min Universi ty [facility] Respiratory rate 2019-11-29 01:00:00 20 /min [facility] Oxygen saturation in 2019-11-29 01:00:00 98 /min [facility] Arterial blood by [facility] Pulse oximetry Branch Body temperature 2019-11-28 23:21:00 37.56 Carolina [facility] ersity [facility] Body height 2019-11-28 23:21:00 170.2 cm Universi ty of [facility] Body weight 2019-11-28 23:21:00 90.719 kg Universi ty [facility] BMI 2019-11-28 23:21:00 31.32 kg/m2 [facility] Procedures Procedure Date / Time Performing Clinician Source Performed XR CHEST 1 VW 2022-01-15 18:15:00 Kane To [place] o f [facility] DUPLEX VENOUS LEGS 2022-01-15 17:11:00 Rikki Roman [facility] BILATERAL - BY VASCULAR Medical Branch LAB US RETROPERITONEAL 2022-01-15 15:52:29 Jose Ovalles [facility] COMPLETE Medical Branch NM LUNG VENTILATION AND 2022-01-15 15:30:00 Rikki Roman [facility] PERFUSION [facility] PROTHROMBIN TIME / INR 2022-01-14 20:05:00 Lukasz Rodriguez [facility] D-DIMER 2022-01-14 20:05:00 Lukasz Rodriguez [place] [facility] ACTIVATED PARTIAL THRMPLAS 2022-01-14 20:05:[address] [facility] GILL [facility] HB ECG ROUTINE & RHYTHM 2022-01-14 19:15:32 Lukasz Rodriguez [facility] STRIP [facility] Branch LIPASE 2022-01-14 19:15:00 Lukasz Rodriguez [facility] TROPONIN I 2022-01-14 19:15:00 Lukasz Rodriguez [facility] COMP. METABOLIC PANEL 2022-01-14 19:15:00 Lukasz Rodriguez [facility] ([id number]) Medical Branch IRON PANEL 2022-01-14 19:15:00 Shae Trejo [facility] CBC WITH DIFF 2022-01-14 19:15:00 Lukasz Rodriguez [facility] URINALYSIS 2022-01-14 19:15:00 Lukasz Rodriguez [facility] N-TERMINAL PRO-BNP 2022-01-14 19:15:00 Lukasz Rodriguez [facility] NOTICE OF PRIVACY 2022-01-14 17:51:55 Doctor Unassigned, [facility] PRACTICES [place] [facility] [place] CONSENT/REFUSAL FOR 2022-01-14 17:51:21 Doctor Unassever, [facility] DIAGNOSIS AND TREATMENT [place] [facility] [place] MR ABDOMEN W WO CONTRAST 2021-11-21 14:30:00 Vance Duran [facility] ASSIGNMENT OF BENEFITS 2021-11-21 13:04:52 Doctor Unassever, [facility] Name Medical [place] XR CHEST 2 VW 2019-11-28 23:58:[address] [facility] COVID-19 (ID NOW RAPID 2019-11-28 23:41:00 Marychuy Magaña [facility] TESTING) Medical Branch LIPASE 2019-11-28 23:36:[address] [facility] TEST, SERUM 2019-11-28 23:36:00 Marychuy Magaña [facility] TROPONIN I 2019-11-28 23:36:[address] [facility] HEPATIC FUNCTION PANEL 2019-11-28 23:36:00 Marychuy Magaña [facility] ([id number]) (ALB,T.PRO,BILI Medical [place] T,BU/BC,ALT,AST,ALK PHOS) BASIC METABOLIC PANEL (NA, 2019-11-28 23:36:00 Marychuy Magaña [facility] K, CL, CO2, GLUCOSE, BUN, Medica l Branch CREATININE, CA) CBC WITH DIFF 2019-11-28 23:36:[address] [facility] PROTHROMBIN TIME / INR 2019-11-28 23:36:00 Marychuy Magaña [facility] ACTIVATED PARTIAL THRMPLAS 2019-11-28 23:36:00 Marychuy Magaña [facility] EKG-12 LEAD 2019-11-28 23:31:[address] [facility] NOTICE OF PRIVACY 2019-11-28 22:55:14 Doctor Unassigned, [facility] PRACTICES [place] [facility] CONSENT/REFUSAL FOR 2019-11-28 22:53:30 Doctor Unassigned, [facility] DIAGNOSIS AND TREATMENT [place] [facility] Encounters Start End Encounter Admission Attending Care Care Encounter Source Date/Time Date/Time Type Type Clinicians Facility Department ID 2022-02-13 2022-02-13 Outpatient R TORO [facility] [id number] Univers 13:00:00 13:00:[address] [facility] 2022-01-14 2022-01-15 Outpatient X EDWAR [facility] SASHA [id number] Univers 12:12:00 17:38:[address] [facility] 2022-01-14 2022-01-15 Emergency Lukasz Rodriguez [facility] [id number]. [id number] Univers 12:12:00 17:38:00 Rikki Roman [id number] [facility] [place] To [id number] [facility] [id number] [facility] 081 Branch 2021-11-21 2021-11-21 Outpatient R BERNADINE [facility] [id number] Univers 08:06:06 23:59:[address] [facility] 2021-11-21 2021-11-21 [facility] [id number] Univers 08:06:06 23:59:00 Encounter Vance WILDE [id number] ity of [place] [id number] [place] [id number] [facility] 804 [place] 2021-11-21 2021-11-21 Orders Doctor SAHRA [id number] Univers 00:00:00 00:00:00 Only Unassigned, T[place] [id number] ity of [place] [facility] [id number] Yaron as [id number] [facility] 009 Branch 2020-12-18 2020-12-18 Laboratory Only, Ang Db Test [facility] 1.2.8 [id number] Univers 12:36:22 12:51:22 Only Clementina, [facility] [id number] ity of [place] [id number] Yaron as Jun?Blea [id number] In sumi tello [address] [place] [facility] 2020-12-18 2020-12-18 Outpatient R CLEMENTINA [facility] [id number] Univers 12:30:00 12:30:00 ELENA [place] o f [facility] 2020-12-18 2020-12-18 Office Fernando Noonan [id number] Imani 10:32:34 11:02:34 Visit Nataly Carreon [id number] Se darryn Mayorga [id number] [id number] 2020-06-16 2020-06-16 Outpatient R CHIRAG [facility] [id number] Univers 10:40:00 10:40:00 PAVITHRA ity [facility] 2020-06-16 2020-06-16 Laboratory Lab, Adc Fam Pob I [facility] 1.2. [id number] Univers 10:18:56 10:38:56 Only [facility] 350.1.13.10 [facility] [place] 4.2.7.2.686 Yaron as Professio [phone] In sumi lynne [address] [place] [address] Office Building One 2020-06-09 2020-06-09 Outpatient R CHIRAG [facility] [id number] Univers 10:40:00 10:40:00 PAVITHRA sewell [facility] 2020-06-09 2020-06-09 Laboratory Lab, [facility] Pob I [facility] 1.2. 840.114 [id number] Univers 10:18:04 10:38:04 Only [facility] 350.1.13.10 [facility] [place] 4.2.7.2.686 Yaron as Professio [phone] In dical nal [address] [place] [address] Office [facility] One 2020-05-02 2020-05-02 Laboratory Lab, [facility] Pob I [facility] 1.2. 840.114 [id number] Univers 17:20:29 17:40:29 Only Sahra Sanchez 350.1.13.10 [facility] [place] 4.2.7.2.686 Yaron as Professio [phone] In dictx nal [address] [place] [address] Office [facility] One 2020-05-02 2020-05-02 Laboratory Lab, [facility] 1.2.840.114 [id number] 17:20:29 17:40:29 Only Fam Pob I Health 350.1.13.10 [place] 4.2.7.2.686 Professio [phone] [address] One 2020-05-02 2020-05-02 Outpatient R RUBÉN [facility] [id number] Univers 17:40:00 17:40:00 SAHRA sewell [facility] 2020-03-13 2020-03-13 Outpatient R MONROE [facility] [id number] Univers 13:15:00 13:15:00 KELLIE sewell o f [facility] 2020-03-13 2020-03-13 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 840.114 [id number] [facility] 10:28:45 10:43:45 Only [facility] 350.1.13.10 it[facility] [place] 4.2.7.2.686 Yaron as Professio [phone] [address] Office Building One 2020-03-10 2020-03-10 Laboratory Lab, [facility] 1.2.840.114 [id number] 10:28:45 10:43:45 Only Fam Pob I Health 350.1.13.10 [place] 4.2.7.2.686 Professio [phone] [place] [address] Office Building One 2020-01-12 2020-01-12 Laboratory Lab, [facility] Fam Pob I [facility] 1.2. 840.114 [id number] [facility] 14:26:11 14:46:11 Only Dulce [facility] 350.1.13.10 ity of [place] 4.2.7.2.686 Yaron as Professio [phone] [address] Office Building One 2020-01-12 2020-01-12 Laboratory Lab, [facility] 1.2.840.114 [id number] 14:26:11 14:46:11 Only Fam Pob I Health 350.1.13.10 [place] 4.2.7.2.686 Professio [phone] [place] [address] Office Building One 2020-01-12 2020-01-12 Outpatient R VAZQUEZ [facility] [id number] Univers 14:40:00 14:40:00 DULCE ity [facility] 2019-11-28 2019-11-28 Emergency Marychuy Magaña [facility] 1.2.84 0.114 [id number] Univers 18:27:00 21:33:00 Fransisca Oro 350.1.13.10 ity [facility] 4.2.7.2.686 [facility] [phone] [address] 2019-11-28 2019-11-28 Emergency Marychuy Magaña [facility] 1.2.84 0.114 [id number] 18:27:00 21:33:00 Fransisca Oro 350.1.13.10 [place] [address] [place] [address] [phone] [facility] 2019-11-28 2019-11-28 Emergency X [facility] ERT [id number] Univers 17:52:00 17:52:[address] [facility] Results Test Description Test Time Test Comments Results Result Comments Source IRON PANEL 2022-01-15 20:52:37 Test Item Value Reference Range Interpretation Comme nts IRON (test code = 5546036682) 92 ug/dL 50-160 Slight hemolysis TIBC (test code = 2830816321) 323 ug/dL 250-410 % FE SAT (test code = 3498919886) 28 % 20-50 Lab Interpretation (test code = 02028-7) Normal [id number] 21:06:52 Test Item Value Reference Interpretation Comments Range D-DIMER (test code = See_Comment H [Autom ated 9081347875) message] The system which generated this result transmitted reference range : <0.41 ?g/mL (FEU). The reference range was not used to interpret this result as normal/abnormal . KALANI (test code = This test may be KALANI) used in conjunction with a clinical pretest probability (PTP) assessment model to exclude venous thromboembolism (VTE) in patients suspected of deep venous thrombosis (DVT) and pulmonary embolism (PE) A D-Dimer value less than 0.50 ?g/ml (FEU) has a negative predicative value of 96 to 100% (95% CI)and 97 to 100% (95% CI) as an aid in the diagnosis of deep vein thrombosis (DVT) and pulmonary embolism when there is low or moderate pretest probability of PE or DVT. D-Dimer values are expressed in initial fibrinogen equivalent units (FEU)" The assay results should be used with other information, including the clinical context, in forming a diagnosis. Lab Interpretation Abnormal (test code = 08591-3) [facility] HospitalACTIVATED PARTIAL THRMPLAS [id number] 21:02:07 Test Item Value Reference Range Interpretation Comments APTT Patient (test See_Comment [Automat ed code = 3173-2) message] The system which generated this result transmitted reference range : 23 - 38 Seconds . The reference range was not used to interpr et this result as normal/abnormal . KALANI (test code = KALANI) The [facility] patient population mean normal value for aPTT is 30 seconds. Lab Interpretation Normal (test code = 65498-4) [facility] HospitalPROTHROMBIN TIME / [id number] 20:59:29 Test Item Value Reference Range Interpretation Comments [...] tions. Lab Interpretation (test Normal code = 47157-9) [facility] HospitalTROPONIN [id number] 20:05:43 Test Item Value Reference Interpretation Comments Range TROPONIN I (test 0.011 ng/mL See_Comment [Automated code = 4607256405) message] The system which generated this result transmitted reference range : <=0.034. The reference range was not used to interpret this result as normal/abnormal . KALANI (test code = Reference (Normal) KALANI) Range (defined by the 99th percentile reference limit): <= 0.034 ng/mL Note: Cardiac troponin begins to rise 3-4 hours after the onset of ischemia. Repeat in 4-6 hours if the sample was drawn within 3-4 hours of the onset of the symptom and found normal. Diagnosis of myocardial injury is made with acute changes in cTn concentrations with at least one serial sample above the 99th percentile upper reference limit (URL), taken together with the patient's clinical presentation. Biotin has been reported to cause a negative bias, interpret results relative to patient's use of biotin. Lab Interpretation Normal (test code = 92617-6) [facility] HospitalN-TERMINAL [id number] 20:02:37 Test Item Value Reference Range Interpretation Comments NT-proBNP (test code 83 pg/mL See_Comment [Autom ated = 6546912722) message] The system which generated this result transmitted reference range : <=125. The reference range was not used to interpret this result as normal/abnormal . KALANI (test code = KALANI) Biotin has been reported to cause a negative bias, interpret results relative to patient's use of biotin. Lab Interpretation Normal (test code = 55750-0) [facility] HospitalCOMP. METABOLIC PANEL (65820)2022-01-14 19:53:55 Test Item Value Reference Range Interpretation Comments NA (test code = 136 mmol/L 135-145 3919733103) K (test code = 5.1 mmol/L 3.5-5.0 H 8617231691) CL (test code = 104 mmol/L 98-108 1373378770) CO2 TOTAL (test code = 23 mmol/L 23-31 4709497484) AGAP (test code = 2-16 7965178348) BUN (test code = 11 mg/dL 7-23 8714889511) GLUCOSE (test code = 88 mg/dL 70-110 0391963580) CREATININE (test code = 0.79 mg/dL 0.50-1.04 9696350907) TOTAL BILI (test code = 0.9 mg/dL 0.1-1.6 9241090140) CALCIUM (test code = 9.5 mg/dL 8.6-10.6 1687005052) T PROTEIN (test code = 8.9 g/dL 6.3-8.2 H 3410657214) ALBUMIN (test code = 5.0 g/dL 3.5-5.0 4611129591) ALK PHOS (test code = 39 U/L 34-122 6297780502) ALTv (test code = 34 U/L 5-35 1742-6) AST(SGOT) (test code = 36 U/L 13-40 8655786421) eGFR (test code = mL/min/1.73m2 8589697653) KALANI (test code = KALANI) Association of Glomerular Filtration Rate (GFR) and Staging of Kidney Disease* + --+ --+ ------+| GFR (mL/min/1.73 m2) ?| With Kidney Damage ?| ?Without Kidney Damage+ --------+ --------+ +| ?>90 ?| ?Stage one ?| ? Normal ?+ ---+ ---+ -------+| ?60-89 ?| ?Stage two ?| ? Decreased GFR ? + --+ --+ ------+| ?30-59 ?| ?Stage three ?| ? Stage three ? + --+ --+ ------+| ?15-29 ?| ?Stage four ? | ? Stage four ?+ ---+ ---+ -------+| ?<15 (or dialysis) ? ?| ?Stage five ? | ? Stage five ?+ ---+ ---+ -------+ *Each stage assumes the associated GFR level [...] or urine or abnormalities in imaging tests). Lab Interpretation Abnormal (test code = 45962-3) [facility] HospitalLIPASE2022-11-16 19:53:55 Test Item Value Reference Range Interpretation Comments LIPASE (test code = 9139427234) 93 U/L 0-220 Lab Interpretation (test code = Normal 36523-1) [facility] HospitalCB WITH [id number] 19:33:55 Test Item Value Reference Range Interpretation Comments WBC (test code = See_Comment [Automated 4903-2) message] The sy stem which generated this [...] as normal/abnormal . HGB (test code = 14.0 g/dL 11.6-15.0 718-7) HCT (test code = 40.7 % 35.7-45.2 4544-3) MCV (test code = 85.3 fL 80.6-95.5 787-2) MCH (test code = 29.4 pg 25.9-32.8 785-6) MCHC (test code = 34.4 g/dL 31.6-35.1 786-4) RDW-SD (test code = 38.4 fL 39.0-49.9 L 74268-5) RDW-CV (test code = 12.3 % 12.0-15.5 788-0) PLT (test code = See_Comment [Automated 777-3) message] The sy stem which generated this result transmitted reference range : 166 - 358 10*3/ ?L. The reference r braden was not used to interpret this result as normal/abnormal . MPV (test code = 9.2 fL 9.5-12.9 L 77158-3) NRBC/100 WBC (test See_Comment [Automat ed code = 3570258005) message] The system which generated this result transmitted reference range : 0.0 - 10.0 /100 WBCs. The refer ence range was not u sed to interpret th is result as normal/abnormal . NRBC x10^3 (test code See_Comment [Auto mated = 9890111598) message] The s ystem which generated this result transmitted reference range : 10*3/?L. The reference range was not used to interpret this result as normal/abnormal . GRAN MAT (NEUT) % 60.7 % (test code = 770-8) IMM GRAN % (test code 0.10 % = 7196870202) LYMPH % (test code = 33.7 % 736-9) MONO % (test code = 4.4 % 5905-5) EOS % (test code = 0.7 % 713-8) BASO % (test code = 0.4 % 706-2) GRAN MAT x10^3(ANC) 4.14 10*3/uL 1.88-7.09 (test code = 9801392891) IMM GRAN x10^3 (test 0.00-0.06 code = 9551101161) LYMPH x10^3 (test code 2.30 10*3/uL 1.32-3.29 = 731-0) MONO x10^3 (test code 0.30 10*3/uL 0.33-0.92 L = 742-7) EOS x10^3 (test code = 0.05 10*3/uL 0.03-0.39 711-2) BASO x10^3 (test code 0.03 10*3/uL 0.01-0.07 = 704-7) Lab Interpretation Abnormal (test code = 26886-9) [facility] HospitalXR CHEST 2 [id number] 00:35:04Impression: No acute abnormalities evident. RL: 460 End of Report Ordering Physician: CARMENCITA MAGAÑA History: ?Chest pain and mid thoracic [...] pain.Technique: Chest, 2 viewsComparison: NoneFindings: The lungs areclear. No pleural effusions are evident. Heart size isnormal. The superior mediastinal silhouette isunremarkable for age andprojection. No acute bony abnormalities are evident. Surgical clips areseen within the upper abdomen.IMPRESSIONImpression:No acute abnormalities evident.RL: 460End of Report [facility], [id number] 00:30:00 Test Item Value Reference Range Interpretation Comments PREG SERUM (test code Negative = 4696175653) KALANI (test code = KALANI) Less than 10 IU/L. ?If low titer or ectopic is suspected, resubmit specimen in 48-[address] [facility] HospitalCyrus [id number] 00:27:00 Test Item Value Reference Range Interpretation Comments TROPONIN I (test 0.001 ng/mL See_Comment [Automated code = 0921791544) message] The system which generated this result [...] ? Lab Interpretation Normal (test code = 60310-1) [facility] HospitalCOVID-19 (ID NOW RAPID TESTING)2019-11-29 00:21:00 Test Item Value Reference Range Interpretation Comments SARS-CoV-2 Rapid ID NOW Not Detected Not Detected (test code = 07391-8) KALANI (test code = KALANI) ID NOW COVID-19 Assay is an isothermal nucleic acid amplification test intended for the qualitative detection of nucleic acid from SARS-CoV-2 viral RNA in nasopharyngeal (SECONDS GRADER) specimens. It is used under Emergency Use [...] indicated. Lab Interpretation Normal (test code = 94623-0) [facility] HospitalHepatic Function Panel (ALB, T.PRO, BILI T, BU/BC, ALT, AST, ALK PHOS)2019-11-29 00:18:00 Test Item Value Reference Range Interpretation Comments TOTAL BILI (test code = 1201855451) 0.5 mg/dL 0.1-1.1 BILI UNCON (test code = 9028723127) 0.7 mg/dL 0.1-1.1 BILI CONJ (test code = 5275107274) 0.0 mg/dL 0-0.3 T PROTEIN (test code = 7761755138) 8.3 g/dL 6.3-8.2 H ALBUMIN (test code = 7437501246) 4.3 g/dL 3.5-5 ALK PHOS (test code = 4563027982) 60 U/L 34-122 ALTv (test code = 1742-6) 20 U/L 5-35 AST(SGOT) (test code = 9306964226) 24 U/L 13-40 Lab Interpretation (test code = Abnormal 50305-2) [facility] HospitalBasic Metabolic Panel (NA, K, CL, CO2, GLUCOSE, BUN, CREATININE, CA)2019-11-29 00:15:00 Test Item Value Reference Range Interpretation Comments NA (test code = 137 mmol/L 135-145 7068840852) K (test code = 3.8 mmol/L 3.5-5 8149665247) CL (test code = 101 mmol/L 98-108 4357017363) CO2 TOTAL (test code = 26 mmol/L 23-31 2681164244) AGAP (test code = 2-16 5785190272) BUN (test code = 8 mg/dL 7-23 6149360879) GLUCOSE (test code = 93 mg/dL 70-110 8889571175) CREATININE (test code 0.72 mg/dL 0.5-1.04 = 0753421789) CALCIUM (test code = 9.5 mg/dL 8.6-10.6 6933713146) eGFR Calculation mL/min/1.73m2 (Non-) (test code = 2082294924) eGFR Calculation mL/min/1.73m2 () (test code = 6337515282) KALANI (test code = KALANI) Association of [...] or urine or abnormalities in imaging tests). [facility] HospitalLipase [id number] 00:15:00 Test Item Value Reference Range Interpretation Comments LIPASE (test code = 5135131748) 97 U/L 0-220 Lab Interpretation (test code = Normal 67462-2) [facility] HospitalaPTT2020-09-30 00:03:00 Test Item Value Reference Range Interpretation Comments APTT Patient (test See_Comment [Automat ed code = 3173-2) message] The system which generated this result transmitted reference range : 23 - 38 Seconds . The reference range was not used to interpr et this result as normal/abnormal . KALANI (test code = KALANI) The [facility] patient population mean normal value for aPTT is 30 seconds. Lab Interpretation Normal (test code = 73737-9) [facility] HospitalProthrombin Time (PT) / [id number] 00:01:00 Test Item Value Reference Range Interpretation [...] tions. Lab Interpretation (test Normal code = 38740-2) [facility] HospitalCB with [id number] 23:52:00 Test Item Value Reference Range Interpretation Comments WBC (test code = See_Comment [Automated 8690-2) message] The sy stem which generated this result transmitted reference range : 4.30 - 11.10 10*3/?L. The reference range was not used to interpret this result as normal/abnormal . RBC (test code = See_Comment [Automated 319-8) message] The sy stem which generated this [...] RDW-SD (test code = 40.2 fL 39-49.9 08916-1) RDW-CV (test code = 12.8 % 12-15.5 788-0) PLT (test code = See_Comment [Automated 777-3) message] The sy stem which generated this result transmitted reference range : 166 - 358 10*3/ ?L. The reference r braden was not used to interpret this result as normal/abnormal . MPV (test code = 9.1 fL 9.5-12.9 L 49050-8) NRBC/100 WBC (test See_Comment [Automat ed code = 5558815549) message] The system which generated this result transmitted reference range : 0.0 - 10.0 /100 WBCs. The refer ence range was not u sed to interpret th is result as normal/abnormal . NRBC x10^3 (test code <0.01 See_Comment [Auto mated = 1962132464) message] The s ystem which generated this result transmitted reference range : 10*3/?L. The reference range was not used to interpret this result as normal/abnormal . GRAN MAT (NEUT) % 60.4 % (test code = 770-8) IMM GRAN % (test code 0.10 % = 3908752794) LYMPH % (test code = 33.1 % 736-9) MONO % (test code = 5.6 % 5905-5) EOS % (test code = 0.5 % 713-8) BASO % (test code = 0.3 % 706-2) GRAN MAT x10^3(ANC) 5.98 10*3/uL 1.88-7.09 (test code = 7023606519) IMM GRAN x10^3 (test <0.03 0-0.06 code = 7358875670) LYMPH x10^3 (test code 3.27 10*3/uL 1.32-3.29 = 731-0) MONO x10^3 (test code 0.55 10*3/uL 0.33-0.92 = 742-7) EOS x10^3 (test code = 0.05 10*3/uL 0.03-0.39 711-2) BASO x10^3 (test code 0.03 10*3/uL 0.01-0.07 = 704-7) Lab Interpretation Abnormal (test code = 02707-7) [facility]
[2022-03-25 09:37] LABS: Hematocrit 41.4 % (36.0-45.0); Lymphocytes % 34.3 % (15.3-44.8); MCV 87.8 fL (80-100); MPV 6.8 fL (7.6-11.3); RBC Red Blood Cell Count 4.72 M/uL (3.86-4.86)
[2022-03-25 10:00] LABS: Albumin 3.8 g/dL (3.4-5.0); Bilirubin Total 0.4 mg/dL (0.2-1.0); Potassium 4.2 mmol/L (3.5-5.1); Protein, Total 7.8 g/dL (6.4-8.2)
--- NOTE | 2022-03-25 10:00 | RAD REPORT ---
EXAM DESCRIPTION: CT - Stone Protocol - 03/25/2022 9:45 am CLINICAL HISTORY: Abdominal pain. Right flank pain COMPARISON: September 2021 TECHNIQUE: Computed axial tomography of the abdomen pelvis was obtained without oral or IV contrast. Lack of IV and oral contrast limits evaluation of solid organs, appendix, bowel, and vessels. Lopez l reformatted images were obtained and reviewed. All CT scans are performed using dose optimization technique as appropriate and may include automated exposure control or mA/KV adjustment according to patient size. FINDINGS: A renal calculus is not seen. An ureteral calculus is not noted. A bladder calculus is not present. No hydronephrosis Previously described abnormality of the liver is not clearly seen on this exam. Refer to that report for recommendation. Spleen, pancreas and adrenals appear grossly normal. Cholecystectomy. Hysterectomy. No adnexal mass. There is no evidence of diverticulitis Small inguinal lymph nodes likely are reactive in nature IMPRESSION: Negative for a genitourinary calculus
[2022-03-25 12:12] LABS: Urine Blood Negative (Negative); Urine Glucose Negative (Negative); Urine Protein Negative (Negative); Urine pH 5.5 (5.0-7.0)
--- NOTE | 2022-03-25 12:18 | EDPHYS ---
Physician Documentation [facility] Name: Renee Castellon Age: 46 yrs Sex: Female : 1975 Arrival Date: 03/25/2022 Time: 08:42 Bed IW1 Private MD: Juan R Batres T ED Physician Jeffry Martinez HPI: 03/25 09:22 This 46 yrs old Female presents to ER via Ambulatory with complaints of Flank Pain - jmm right side, Nose Bleed. 09:22 The patient complains of pain in the right flank. Location: right flank. Onset: The jmm symptoms/episode began/occurred 2 month(s) ago. Modifying factors: The symptoms are alleviated by nothing. the symptoms are aggravated by nothing. This is a 46-year-old female with no known chronic medical conditions and presents emerged part with complaints of chronic right flank pain which is the patient states has been going on for months. But patient is recently developed right groin pain and noticed swelling of the right groin. Patient also states over the past 2 days she has had multiple nosebleeds from the right nostril.. Historical: - Allergies: 09:21 Codeine; iw 09:21 HYDROCODONE; iw 09:21 Iodine; iw 09:21 SHELLFISH; iw - PMHx: 09:21 GERD; iw - PSHx: 09:21 Appendectomy; Cholecystectomy; partial hysterectomy; iw ROS: 09:22 Constitutional: Negative for fever, chills, and weight loss, Cardiovascular: Negative jmm for chest pain, palpitations, and edema, Respiratory: Negative for shortness of breath, cough, wheezing, and pleuritic chest pain. 09:22 Back: Negative for injury and pain. 09:22 Back: Positive for flank pain, on the right. 09:22 All other systems are negative. Exam: 09:22 Constitutional: This is a well developed, well nourished patient who is awake, alert, jmm and in no acute distress. Head/Face: atraumatic. Eyes: EOMI, no conjunctival erythema appreciated ENT: Moist Mucus Membranes Neck: Trachea midline, Supple Chest/axilla: Normal chest wall appearance and motion. Cardiovascular: Regular rate and rhythm. No edema appreciated Respiratory: Normal respirations, no respiratory distress appreciated 09:22 Skin: General appearance color normal MS/ Extremity: Moves all extremities, no obvious deformities appreciated, no edema noted to the lower extremities Neuro: Awake and alert Psych: Behavior is normal, Mood is normal, Patient is cooperative and pleasant 09:22 Abdomen/GI: Inspection: abdomen appears normal, Bowel sounds: normal, Palpation: mild abdominal tenderness, in the posterior aspect of left lateral abdomen. 09:22 Back: pain, of the right flank. Vital Signs: 09:20 BP 130 / 92; Pulse 91; Resp 16; Temp 97.9; Pulse Ox 100% on R/A; Weight 86.64 kg; iw Height 5 ft. 7 in. (170.18 cm); Pain 7/10; 09:20 Body Mass Index 29.91 (86.64 kg, 170.18 cm) iw MDM: 09:28 Patient medically screened. [facility] 12:16 Data reviewed: vital signs, nurses notes. I considered the following discharge [facility] prescriptions or medication management in the emergency department Medications were administered in the Emergency Department. See MAR. Test considered but Not performed: Other Details ct with contrast. Counseling: I had a detailed discussion with the patient and/or guardian regarding: the historical points, exam findings, and any diagnostic results supporting the discharge/admit diagnosis, lab results, radiology results, the need for outpatient follow up, to return to the emergency department if symptoms worsen or persist or if there are any questions or concerns that arise at home. Response to treatment: the patient's symptoms have mildly improved after treatment. 03/25 09:22 Order name: CBC with Diff; Complete Time: 09:40 [facility] 03/25 09:22 Order name: CMP; Complete Time: 10:07 [facility] 03/25 09:22 Order name: Lipase; Complete Time: 10:07 [facility] 03/25 09:23 Order name: CT Stone Protocol; Complete Time: 10:07 [facility] 03/25 12:12 Order name: Urine Dipstick-Ancillary; Complete Time: 12:15 [facility] 03/25 12:14 Order name: Urine --Ancillary (enter results) bd 03/25 09:22 Order name: IV Saline Lock; Complete Time: 09:34 [facility] 03/25 09:22 Order name: Labs collected and sent; Complete Time: 09:34 [facility] 03/25 09:23 Order name: Urine Dipstick-Ancillary (obtain specimen); Complete Time: 12:48 [facility] Administered Medications: No medications were administered Disposition: 13:20 Co-signature as Attending Physician, Jeffry Martinez MD I reviewed the patient's care rt provided by the Advanced Practice Provider and agree with the diagnosis and treatment plan. Disposition Summary: 03/25/22 12:17 Discharge Ordered Location: Home [facility] Condition: Stable jm Diagnosis - Flank pain jmm - Inguinal lymphadenopathy [facility] Followup: [facility] - With: Private Physician - When: 2 - 3 days - Reason: Recheck today's complaints, Continuance of care, Re-evaluation by your physician Discharge Instructions: - Discharge Summary Sheet jmm - Flank Pain, Adult jmm - Lymphadenopathy [facility] Forms: - Medication Reconciliation Form [facility] - Thank You Letter [facility] - Antibiotic Education [facility] - Prescription Opioid Use [facility] - Work release form [facility] Prescriptions: - Augmentin 875-125 mg Oral Tablet - take 1 tablet by ORAL route every 12 hours for 10 days; 20 tablet; Refills: 0, [facility] Product Selection Permitted - Diclofenac Sodium 75 mg Oral Tablet Sustained Release - take 1 tablet by ORAL route 2 times per day; 30 tablet; Refills: 0, Product [facility] Selection Permitted - orphenadrine citrate 100 mg Oral Tablet Sustained Release - take 1 tablet by ORAL route 2 times per day As needed; 20 tablet; Refills: 0, [facility] Product Selection Permitted Signatures: Dispatcher [employer] Fredy Martinez PA PA jmm Williams, Irene, RN RN Jeffry Eugene MD MD rt
--- NOTE | 2022-03-25 12:18 | ER ---
Nurse's Notes [facility] Name: Renee Castellon Age: 46 yrs Sex: Female : 1975 Arrival Date: 03/25/2022 Time: 08:42 Bed IW1 Private MD: Juan R Batres T Diagnosis: Flank pain;Inguinal lymphadenopathy Presentation: 03/25 09:20 Chief complaint: Patient states: pain in right flank area for a long time, this morning iw there is a knot in my right groin . Yesterday i had a nosebleed and today i had a nose bleed too. Coronavirus screen: At this time, the client does not indicate any symptoms associated with coronavirus-19. Ebola Screen: Patient negative for fever greater than or equal to 101.5 degrees Fahrenheit, and additional compatible Ebola Virus Disease symptoms Patient denies exposure to infectious person. Patient denies travel to an Ebola-affected area in the 21 days before illness onset. No symptoms or risks identified at this time. Initial Sepsis Screen: Does the patient meet any 2 criteria? No. Patient's initial sepsis screen is negative. Does the patient have a suspected source of infection? No. Patient's initial sepsis screen is negative. Risk Assessment: Do you want to hurt yourself or someone else? Patient reports no desire to harm self or others. Onset of symptoms. 09:20 Method Of Arrival: Ambulatory iw 09:20 Acuity: MICH 3 iw Historical: - Allergies: 09:21 Codeine; iw 09:21 HYDROCODONE; iw 09:21 Iodine; iw 09:21 SHELLFISH; iw - PMHx: 09:21 GERD; iw - PSHx: 09:21 Appendectomy; Cholecystectomy; partial hysterectomy; iw Screenin:50 [facility] ED Fall Risk Assessment (Adult) History of falling in the last 3 months, ss including since admission No falls in past 3 months (0 pts). Abuse screen: Denies threats or abuse. Denies injuries from another. Nutritional screening: No deficits noted. Tuberculosis screening: No symptoms or risk factors identified. Assessment: 12:48 General: Appears in no apparent distress. comfortable, Behavior is calm, cooperative. ss Neuro: Level of Consciousness is awake, alert, obeys commands, Oriented to person, place, time, situation. Cardiovascular: Capillary refill < 3 seconds is brisk in bilateral fingers. Respiratory: Airway Respiratory effort is even, unlabored, Respiratory pattern is regular, symmetrical. Derm: Skin is pink, warm \T\ dry. normal. Vital Signs: 09:20 BP 130 / 92; Pulse 91; Resp 16; Temp 97.9; Pulse Ox 100% on R/A; Weight 86.64 kg; iw Height 5 ft. 7 in. (170.18 cm); Pain 7/10; 09:20 Body Mass Index 29.91 (86.64 kg, 170.18 cm) ED Course: 08:42 Patient arrived in ED. am2 08:42 Juan R Batres MD is Private Physician. am2 08:53 [facility] Perez [facility] 08:53 Jeffry Martinez MD is Attending Physician. [facility] 09:21 Triage completed. iw 09:21 Arm band placed on. iw 09:28 Inserted saline lock: 22 gauge in right antecubital area, using aseptic technique. iw 09:46 CT Stone Protocol In Process Unspecified. EDMS 12:48 No provider procedures requiring assistance completed. IV discontinued, intact, ss bleeding controlled, No redness/swelling at site. Pressure dressing applied. 12:50 Patient has correct armband on for positive identification. ss Administered Medications: No medications were administered Outcome: 12:17 Discharge ordered by . [facility] 12:48 Discharged to home ambulatory. ss 12:48 Condition: good 12:48 Instructed on discharge instructions, follow up and referral plans. medication usage, Demonstrated understanding of instructions, follow-up care, medications, Prescriptions given X 3. 12:50 Patient left the ED. ss Signatures: Dispatcher [employer] EDMS Fredy Perez PA PA jmm Williams, Irene, FRANCES RN Genesis Carballo RN RN Allison Al am2 Corrections: (The following items were deleted from the chart) 09:23 09:20 Pulse 91bpm; Resp 16bpm; Pulse Ox 100% RA; Temp 97.9F; iw iw
[2022-03-25 13:25] VITALS: BP 130/92; TEMP 97.9; O2SAT 100
== END 2022-03-25 12:50 | disposition home or self-care (01) ==
LOC: ER 08:41
DX: R59.0 Localized enlarged lymph nodes (principal); Z88.5 Allergy status to narcotic agent; Z91.013 Allergy to seafood; Z91.048 Other nonmedicinal substance allergy status
CPT/HCPCS: 36415; 74176; 76377; 80053; 81003; 81025; 83690; 85025

== ENCOUNTER → 2023-03-24 | Emergency (ER) | payer OTHER ==
[~2023-03-24] MED LIST: DIPHENHYDRAMINE 50 MG/ML VIAL ONE; KETOROLAC 30 MG/ML INJ ONE; METOCLOPRAMIDE 10 MG/2mL INJ ONE; NA CHLORIDE 0.9% 1,000 ML ONE; dexAMETHasone 10 MG/ML VIAL ONE
--- OUTSIDE RECORDS SUMMARY | 2023-03-24 21:31 | XMS REPORT | Continuity of Care Document ---
Author Name Unknown Address [address] [facility] [address] [place] [address] [facility] thconnect Address [address] [facility] [address] [place] [address] Care Team Providers Care Sales Coach Name Role Phone Batres Juan R Carey Primary Care Physician [phone] [email or web address] Attending Clinician Unavaila GLADYS Serna Attending Clinician Unavailzuly e Doctor Unassigned, [place] Attending Clinician U navailable KANE TO Attending Clinician Unavailable Lukasz Rodriguez MD Attending Clinician [phone] Rikki Roman MD Attending Clinician [phone] Kane To MD Attending Clinician [phone] VANCE DURAN Attending Clinician UnavailVance Jarquin MD Attending Clinician [phone] Only, Ang Db Test Attending Clinician UnavailElena Dang Attending Clinician [phone] ELENA MCRAE Attending Clinician Unavailzuly Noonan MD, Nataly Mayorga Attending Clinician [phone] PAVITHRA BEARD Attending Clinician Unavailable Lab, Adc Fam Pob I Attending Clinician Unavailab Pavithra Abdul Attending Clinician [phone] Sahra Sanchez PA-C Attending Clinician [phone] SAHRA SANCHEZ Attending Clinician Unavailable KELLIE PARADA Attending Clinician Unavailab Kellie Dow Attending Clinician + [phone] Dulce Elizondo Attending Clinician [phone] DULCE SHUKLA Attending Clinician Unavailable Marychuy Magaña MD Attending Clinician [phone] Fransisca Oro MD Attending Clinician [phone] [email or web address] Admitting Clinician Unavaila RIKKI Valencia Admitting Clinician Unavailable Rikki Roman MD Admitting Clinician [phone] VANCE DURAN Admitting Clinician Unavailabl e Payers Payer Name Policy Type Policy Number Effective Date Expirati on Date Source [facility] [id number] [facility] [id number] 2019 00:00:00 Problems Condition Name Condition Details Condition Category Status Onset Date Resolution Date Last Treatment Date Treating Clinician Comments Source Chest pain Chest pain Disease Active 2021-03 00:00: 00 [facility] Obesity (BMI 30-39.9) Obesity (BMI 30-39.9) Disease Active 2021-03 00:00: 00 [facility] No known active problems No known active problems Disease Imani Damico Allergies, Adverse Reactions, Alerts Allergy Name Allergy Type Status Severity Reaction(s) Onset Date Inactive Date Treating Clinician Comments Source IODINE DRUG INGREDI Active Anaphylaxis 11-27 00:00: 00 [facility] Iodine Propensi ty to adverse reaction s Active Anaphylaxis 11-27 00:00: 00 Anaphylax is despite steroid pretreatm ent for CT with contrast; also shellfish anaphylax is Imani Damico NO KNOWN ALLERGIE S Drug Class Active [facility] Social History Social Habit Start Date Stop Date Quantity Comments Source History of tobacco use Cigarette Smoker [facility]arettes smoked current (pack per day) - Reported 2022-01-15 00:00:00 2022-01-15 00:00:00 [facility] Cigarette pack-years 2022-01-15 00:00:00 2022-01-15 00:00:00 [facility] Tobacco use and exposure 2022-01-15 00:00:00 2022-01-15 00:00:00 Smokeless tobacco non-user [facility] Alcohol intake 2022-01-15 00:00:00 2022-01-15 00:00:00 [facility] Alcohol Comment 2022-01-15 00:00:00 2022-01-15 00:00:00 social [facility] History of Social function 2022-01-15 00:00:00 2022-01-15 00:00:00 [facility] Exposure to SARS-CoV-2 (event) 2022-01-04 00:00:00 2022-01-14 17:53:00 Not sure [facility] Education 2022-01-14 00:00:00 2022-01-14 00:00:00 16 [facility] Tobacco Comment 2022-01-14 00:00:00 2022-01-14 00:00:00 Used to vape but quit that also. [facility] Sex Assigned At 1975 00:00:00 1975 00:00:00 Imani Damico Smoking Status Start Date Stop Date Source Ex-smoker 2022-01-15 00:00:00 2022-01-15 00:00:00 [facility] Never smoked tobacco Imani Damico Tobacco smoking consumption unknown [facility] Medications Ordered Medication Name Filled Medication Name Start Date Stop Date Current Medication? Ordering Clinician Indication Dosage Frequency Signature (SIG) Comments Components Source enoxaparin (LOVENOX) injection 40 mg 2021-03 03:00: 00 Yes 40mg 40 mg, Subcutaneo us, Q24H, First dose on Wed01/15/22 at 2100, Until Discontinu ed, Routine [facility] omeprazole 40 mg capsule 2021-03 17:39: 28 Yes 40mg Take 40 mg by mouth daily. [facility] famotidine 20 mg tablet 2021-03 17:39: 28 Yes 20mg Take 20 mg by mouth 2 (two) times daily. [facility] zolpidem 10 mg tablet 2021-03 17:39: 28 Yes 10mg Take 10 mg by mouth at bedtime as needed for Insomnia. [facility] omeprazole 40 mg capsule 2021-03 17:39: 28 Yes 40mg Take 40 mg by mouth daily. [facility] famotidine 20 mg tablet 2021-03 17:39: 28 Yes 20mg Take 20 mg by mouth 2 (two) times daily. [facility] zolpidem 10 mg tablet 2021-03 17:39: 28 Yes 10mg Take 10 mg by mouth at bedtime as needed for Insomnia. [facility] tc 99m-albumin (DRAXIMAGE MAA) injection 6.3 millicurie 2021-03 15:15: 00 01-15 15:10 :00 No [id number] 6.3mCi 6.3 millicurie , Intravenou s, ONCE, 1 dose, On Wed01/15/22 at 0915, Routine [facility] omeprazole (PRILOSEC) capsule 40 mg 2021-03 15:00: 00 Yes 40mg 40 mg, Oral, DAILY, First dose on Wed01/15/22 at 0900, Until Discontinu ed [facility] zolpidem (AMBIEN) tablet 5 mg 2021-03 06:21: 03 Yes 5mg 5 mg, Oral, QHSPRN, Starting on Wed01/15/22 at 0021, Until Discontinu ed, Routine, Insomnia [facility] ketorolac (TORADOL) injection 15 mg 2021-03 01:00: 00 01-15 06:33 :00 No 15mg 15 mg, Slow IV Push, Q6H, 2 doses, First dose (after last reorder) on Wed01/14/22 at 1900, Last dose on Wed01/15/22 at 0000, CARLA [facility] oxyCODONE immediate release tablet 5 mg 2021-03 00:51: 56 Yes 5mg 5 mg, Oral, Q4HPRN, Starting on Wed01/14/22 at 1851, Until Discontinu ed, Routine, Pain (scale 7-10)
F aculty member approving Restricted medication : RIKKI ROMAN [facility] traMADoL (ULTRAM) tablet 50 mg 2021-03 00:51: 41 Yes 50mg 50 mg, Oral, Q6HPRN, Starting on Wed01/14/22 at 1851, Until Discontinu ed, Routine, Pain (scale 4-6) [facility] traMADoL 50 mg tablet 2021-03 00:00: 00 01-23 05:59 :00 No [id number] 50mg Take 1 tablet by mouth every 6 (six) hours as needed for Pain (scale 4-6) for up to 7 days. Indication s: acute pain [facility] acetaminoph en (TYLENOL) tablet 650 mg 2021-03 23:32: 02 Yes 650mg 650 mg, Oral, Q6HPRN, Starting on Wed01/14/22 at 1732, Until Discontinu ed, Routine, Pain (scale 1-3) [facility] ondansetron (ZOFRAN (PF)) injection 4 mg 2021-03 22:45: 00 01-14 21:47 :00 No 4mg 4 mg, Slow IV Push, ONCE, 1 dose, On Wed01/14/22 at 1645, CARLA [facility] morpHINE (4 mg/mL) injection 4 mg 2021-03 21:45: 00 01-14 21:47 :00 No 4mg 4 mg, Slow IV Push, ONCE, 1 dose, On Wed01/14/22 at 1545, STAT [facility] ketorolac (TORADOL) injection 30 mg 2021-03 21:00: 00 01-14 20:26 :00 No 30mg 30 mg, Slow IV Push, ONCE, 1 dose, On Wed01/14/22 at 1500, CARLA [facility] esomeprazol e 20 mg capsule 2021-03 17:59: 51 01-14 00:00 :00 No 40mg Take 40 mg by mouth in the morning. Takes 2 in the morning only. [facility] gadobenate dimeglumine (MULTIHANCE -20 mL) injection 0.2 mL/kg 11-21 14:30: 00 11-21 14:22 :00 No [id number] .2mL/kg 0.2 mL/kg, Intravenou s, ONCE, 1 dose, On Wed11/21/21 at 0930, Routine [facility] Esomeprazol e Magnesium 20 MG oral Delayed Release Capsule 2020-03 10:41: 38 Yes 20mg Take 20 mg by mouth every morning (before breakfast) Imani Damico Famotidine (PEPCID) 20 MG oral tablet 2020-03 10:41: 38 Yes 20mg Take 20 mg by mouth 2 times daily Imani Damico Amoxicillin -Pot Clavulanate 875-125 MG oral Tablet 2020-03 00:00: 00 Yes [id number] 1{tbl} Take 1 tablet by mouth 2 times daily Imani Damico Trazodone HCl 50 MG oral Tablet 2020-03 00:00: 00 Yes [id number] 50mg QD Take 1 tablet (50 mg total) by mouth nightly as needed for sleep Imani Damico ketorolac (TORADOL) injection 15 mg 11-28 05:00: 00 11-29 04:59 :00 No 15mg 15 mg, Slow IV Push, Q6H, 4 doses, First dose on Wed11/29/19 at 0000, Last dose on Wed11/29/19 at 1800, Routine
produce team member approving Restricted medication : MARYCHUY MAGAÑA [facility] proMETHazin e (PHENERGAN) 25 mg in NaCl 0.9% (NS) 50 mL piggyback 11-28 02:45: 00 11-28 01:41 :00 No 25mg 25 mg, IV Piggyback, ONCE, 1 dose, Tu11/28/19 at 2145, 50 mL [facility] ondansetron (ZOFRAN (PF)) injection 4 mg 11-28 02:00: 00 11-28 01:04 :00 No 4mg 4 mg, Slow IV Push, ONCE, 1 dose, 11/28/19 at 2100, CARLA [facility] pantoprazol e (PROTONIX) 40 mg in NaCl 0.9% (NS) 100 mL MINI-BAG 11-28 02:00: 00 11-28 01:18 :00 No 40mg 40 mg, IV Piggyback, ONCE, 1 dose, 11/28/19 at 2100, 100 mL [facility] FENTanyl PF (SUBLIMAZE (PF)) injection 50 mcg 11-28 02:00: 00 11-28 01:03 :00 No 50ug 50 mcg, Slow IV Push, ONCE, 1 dose, 11/28/19 at 2100, Routine [facility] ondansetron (ZOFRAN (PF)) injection 4 mg 11-28 00:45: 00 11-27 23:47 :00 No 4mg 4 mg, Slow IV Push, ONCE, 1 dose, 11/28/19 at 1945, CARLA [facility] morpHINE injection 4 mg 11-28 00:45: 00 11-27 23:47 :00 No 4mg 4 mg, Slow IV Push, ONCE, 1 dose, 11/28/19 at 1945, STAT [facility] aspirin tablet 325 mg 11-27 23:45: 00 11-27 23:41 :00 No 325mg 325 mg, Oral, ONCE, 1 dose, 11/28/19 at 1845, STAT [facility] esomeprazol e (NEXIUM) 20 mg capsule 11-27 23:27: 23 Yes 20mg Take 20 mg by mouth daily before a meal. [facility] omeprazole 40 mg capsule 11-27 23:27: 23 Yes 40mg Take 40 mg by mouth daily. [facility] famotidine (PEPCID) 20 mg tablet 11-27 23:27: 23 Yes 20mg Take 20 mg by mouth 2 (two) times daily. [facility] zolpidem (AMBIEN) 10 mg tablet 11-27 23:27: 23 Yes 10mg Take 10 mg by mouth at bedtime as needed for Insomnia. [facility] esomeprazol e (NEXIUM) 20 mg capsule 11-27 23:27: 23 Yes 20mg Take 20 mg by mouth daily before a meal. [facility] omeprazole 40 mg capsule 11-27 23:27: 23 Yes 40mg Take 40 mg by mouth daily. [facility] famotidine (PEPCID) 20 mg tablet 11-27 23:27: 23 Yes 20mg Take 20 mg by mouth 2 (two) times daily. [facility] zolpidem (AMBIEN) 10 mg tablet 11-27 23:27: 23 Yes 10mg Take 10 mg by mouth at bedtime as needed for Insomnia. [facility] esomeprazol e (NEXIUM) 20 mg capsule 11-27 23:27: 23 Yes 20mg Take 20 mg by mouth daily before a meal. [facility] omeprazole 40 mg capsule 11-27 23:27: 23 Yes 40mg Take 40 mg by mouth daily. [facility] famotidine (PEPCID) 20 mg tablet 11-27 23:27: 23 Yes 20mg Take 20 mg by mouth 2 (two) times daily. [facility] zolpidem (AMBIEN) 10 mg tablet 11-27 23:27: 23 Yes 10mg Take 10 mg by mouth at bedtime as needed for Insomnia. [facility] esomeprazol e (NEXIUM) 20 mg capsule 11-27 23:27: 23 Yes 20mg Take 20 mg by mouth daily before a meal. [facility] omeprazole 40 mg capsule 11-27 23:27: 23 Yes 40mg Take 40 mg by mouth daily. [facility] famotidine (PEPCID) 20 mg tablet 11-27 23:27: 23 Yes 20mg Take 20 mg by mouth 2 (two) times daily. [facility] zolpidem (AMBIEN) 10 mg tablet 11-27 23:27: 23 Yes 10mg Take 10 mg by mouth at bedtime as needed for Insomnia. [facility] esomeprazol e (NEXIUM) 20 mg capsule 11-27 23:27: 23 Yes 20mg Take 20 mg by mouth daily before a meal. [facility] omeprazole 40 mg capsule 11-27 23:27: 23 Yes 40mg Take 40 mg by mouth daily. [facility] famotidine (PEPCID) 20 mg tablet 11-27 23:27: 23 Yes 20mg Take 20 mg by mouth 2 (two) times daily. [facility] zolpidem (AMBIEN) 10 mg tablet 11-27 23:27: 23 Yes 10mg Take 10 mg by mouth at bedtime as needed for Insomnia. [facility] esomeprazol e (NEXIUM) 20 mg capsule 11-27 23:27: 23 Yes 20mg Take 20 mg by mouth daily before a meal. [facility] omeprazole 40 mg capsule 11-27 23:27: 23 Yes 40mg Take 40 mg by mouth daily. [facility] famotidine (PEPCID) 20 mg tablet 11-27 23:27: 23 Yes 20mg Take 20 mg by mouth 2 (two) times daily. [facility] zolpidem (AMBIEN) 10 mg tablet 11-27 23:27: 23 Yes 10mg Take 10 mg by mouth at bedtime as needed for Insomnia. [facility] esomeprazol e (NEXIUM) 20 mg capsule 11-27 23:27: 23 Yes 20mg Take 20 mg by mouth daily before a meal. [facility] omeprazole 40 mg capsule 11-27 23:27: 23 Yes 40mg Take 40 mg by mouth daily. [facility] famotidine (PEPCID) 20 mg tablet 11-27 23:27: 23 Yes 20mg Take 20 mg by mouth 2 (two) times daily. [facility] zolpidem (AMBIEN) 10 mg tablet 11-27 23:27: 23 Yes 10mg Take 10 mg by mouth at bedtime as needed for Insomnia. [facility] esomeprazol e (NEXIUM) 20 mg capsule 11-27 18:27: 23 Yes 20mg Take 20 mg by mouth daily before a meal. [facility] omeprazole 40 mg capsule 11-27 18:27: 23 Yes 40mg Take 40 mg by mouth daily. [facility] famotidine (PEPCID) 20 mg tablet 11-27 18:27: 23 Yes 20mg Take 20 mg by mouth 2 (two) times daily. [facility] zolpidem (AMBIEN) 10 mg tablet 11-27 18:27: 23 Yes 10mg Take 10 mg by mouth at bedtime as needed for Insomnia. [facility] esomeprazol e (NEXIUM) 20 mg capsule 11-27 18:27: 23 Yes 20mg Take 20 mg by mouth daily before a meal. [facility] omeprazole 40 mg capsule 11-27 18:27: 23 Yes 40mg Take 40 mg by mouth daily. [facility] famotidine (PEPCID) 20 mg tablet 11-27 18:27: 23 Yes 20mg Take 20 mg by mouth 2 (two) times daily. [facility] zolpidem (AMBIEN) 10 mg tablet 11-27 18:27: 23 Yes 10mg Take 10 mg by mouth at bedtime as needed for Insomnia. [facility] esomeprazol e (NEXIUM) 20 mg capsule 11-27 18:27: 23 Yes 20mg Take 20 mg by mouth daily before a meal. [facility] omeprazole 40 mg capsule 11-27 18:27: 23 Yes 40mg Take 40 mg by mouth daily. [facility] famotidine (PEPCID) 20 mg tablet 11-27 18:27: 23 Yes 20mg Take 20 mg by mouth 2 (two) times daily. [facility] zolpidem (AMBIEN) 10 mg tablet 11-27 18:27: 23 Yes 10mg Take 10 mg by mouth at bedtime as needed for Insomnia. [facility] traMADoL (ULTRAM) 50 mg tablet 11-27 00:00: 00 Yes [id number] 50mg Take 1 tablet by mouth every 6 (six) hours as needed for Pain (scale 7-10). Indication s: acute pain [facility] proMETHazin e 25 mg tablet 11-27 00:00: 00 Yes [id number] 25mg Take 1 tablet by mouth every 6 (six) hours as needed for Nausea and Vomiting (N/V). [facility] traMADoL (ULTRAM) 50 mg tablet 11-27 00:00: 00 Yes [id number] 50mg Take 1 tablet by mouth every 6 (six) hours as needed for Pain (scale 7-10). Indication s: acute pain [facility] proMETHazin e 25 mg tablet 11-27 00:00: 00 Yes [id number] 25mg Take 1 tablet by mouth every 6 (six) hours as needed for Nausea and Vomiting (N/V). [facility] traMADoL (ULTRAM) 50 mg tablet 11-27 00:00: 00 Yes [id number] 50mg Take 1 tablet by mouth every 6 (six) hours as needed for Pain (scale 7-10). Indication s: acute pain [facility] proMETHazin e 25 mg tablet 11-27 00:00: 00 Yes [id number] 25mg Take 1 tablet by mouth every 6 (six) hours as needed for Nausea and Vomiting (N/V). [facility] traMADoL (ULTRAM) 50 mg tablet 11-27 00:00: 00 Yes [id number] 50mg Take 1 tablet by mouth every 6 (six) hours as needed for Pain (scale 7-10). Indication s: acute pain [facility] proMETHazin e 25 mg tablet 11-27 00:00: 00 Yes [id number] 25mg Take 1 tablet by mouth every 6 (six) hours as needed for Nausea and Vomiting (N/V). [facility] traMADoL (ULTRAM) 50 mg tablet 11-27 00:00: 00 Yes [id number] 50mg Take 1 tablet by mouth every 6 (six) hours as needed for Pain (scale 7-10). Indication s: acute pain [facility] proMETHazin e 25 mg tablet 11-27 00:00: 00 Yes [id number] 25mg Take 1 tablet by mouth every 6 (six) hours as needed for Nausea and Vomiting (N/V). [facility] traMADoL (ULTRAM) 50 mg tablet 11-27 00:00: 00 Yes [id number] 50mg Take 1 tablet by mouth every 6 (six) hours as needed for Pain (scale 7-10). Indication s: acute pain [facility] proMETHazin e 25 mg tablet 11-27 00:00: 00 Yes [id number] 25mg Take 1 tablet by mouth every 6 (six) hours as needed for Nausea and Vomiting (N/V). [facility] traMADoL (ULTRAM) 50 mg tablet 11-27 00:00: 00 Yes [id number] 50mg Take 1 tablet by mouth every 6 (six) hours as needed for Pain (scale 7-10). Indication s: acute pain [facility] proMETHazin e 25 mg tablet 11-27 00:00: 00 Yes [id number] 25mg Take 1 tablet by mouth every 6 (six) hours as needed for Nausea and Vomiting (N/V). [facility] traMADoL (ULTRAM) 50 mg tablet 11-27 00:00: 00 Yes [id number] 50mg Take 1 tablet by mouth every 6 (six) hours as needed for Pain (scale 7-10). Indication s: acute pain [facility] proMETHazin e 25 mg tablet 11-27 00:00: 00 Yes [id number] 25mg Take 1 tablet by mouth every 6 (six) hours as needed for Nausea and Vomiting (N/V). [facility] traMADoL (ULTRAM) 50 mg tablet 11-27 00:00: 00 Yes [id number] 50mg Take 1 tablet by mouth every 6 (six) hours as needed for Pain (scale 7-10). Indication s: acute pain [facility] proMETHazin e 25 mg tablet 11-27 00:00: 00 Yes [id number] 25mg Take 1 tablet by mouth every 6 (six) hours as needed for Nausea and Vomiting (N/V). [facility] traMADoL (ULTRAM) 50 mg tablet 11-27 00:00: 00 Yes [id number] 50mg Take 1 tablet by mouth every 6 (six) hours as needed for Pain (scale 7-10). Indication s: acute pain [facility] proMETHazin e 25 mg tablet 11-27 00:00: 00 Yes [id number] 25mg Take 1 tablet by mouth every 6 (six) hours as needed for Nausea and Vomiting (N/V). [facility] traMADoL (ULTRAM) 50 mg tablet 11-27 00:00: 00 01-14 00:00 :00 No [id number] 50mg Take 1 tablet by mouth every 6 (six) hours as needed for Pain (scale 7-10). Indication s: acute pain [facility] proMETHazin e 25 mg tablet 11-27 00:00: 00 01-14 00:00 :00 No [id number] 25mg Take 1 tablet by mouth every 6 (six) hours as needed for Nausea and Vomiting (N/V). [facility] Vital Signs Vital Name Observation Time Observation Value Comments S ource Systolic blood pressure 2022-01-15 22:39:00 132 mm[Hg] [facility] Diastolic blood pressure 2022-01-15 22:39:00 81 mm[Hg] [facility] Heart rate 2022-01-15 22:39:00 81 /min [facility] Body temperature 2022-01-15 22:39:00 35.83 Alana [facility] Respiratory rate 2022-01-15 22:39:00 16 /min [facility] Oxygen saturation in Arterial blood by Pulse oximetry 2022-01-15 22:39:00 100 /min [facility] Body weight 2022-01-15 09:06:00 89.495 kg [facility] BMI 2022-01-15 09:06:00 30.90 kg/m2 [facility] Body height 2022-01-15 00:03:00 170.2 cm [facility] Systolic blood pressure 2020-12-18 15:39:00 120 mm[Hg] Imani Kohlero mariana Diastolic blood pressure 2020-12-18 15:39:00 74 mm[Hg] Imani Kohlero ld Heart rate 2020-12-18 15:39:00 83 /min Kel y Mookie Body temperature 2020-12-18 15:39:00 37.06 Alana Imani Damico Respiratory rate 2020-12-18 15:39:00 15 /min Imani Damico Body height 2020-12-18 15:39:00 170.2 cm Macarena Damico Body weight 2020-12-18 15:39:00 95.709 kg Macarenasid woodruff Seybestevan BMI 2020-12-18 15:39:00 33.05 kg/m2 Macarenasid Damico Oxygen saturation in Arterial blood by Pulse oximetry 2020-12-18 15:39:00 99 /min Imani peña Heart rate 2020-01-12 17:00:00 83 /min Unive [facility] Respiratory rate 2020-01-12 17:00:00 19 /min [facility] Oxygen saturation in Arterial blood by Pulse oximetry 2020-01-12 17:00:00 97 /min [facility] Heart rate 2020-01-12 17:00:00 83 /min Unive [facility] Respiratory rate 2020-01-12 17:00:00 19 /min [facility] Oxygen saturation in Arterial blood by Pulse oximetry 2020-01-12 17:00:00 97 /min [place] [facility] Systolic blood pressure 2019-11-29 01:00:00 135 mm[Hg] [place] [facility] Diastolic blood pressure 2019-11-29 01:00:00 81 mm[Hg] [place] [facility] Heart rate 2019-11-29 01:00:00 72 /min Unive [facility] Respiratory rate 2019-11-29 01:00:00 20 /min [facility] Oxygen saturation in Arterial blood by Pulse oximetry 2019-11-29 01:00:00 98 /min [facility] Body temperature 2019-11-28 23:21:00 37.56 Alana [facility] Body height 2019-11-28 23:21:00 170.2 cm [facility] Body weight 2019-11-28 23:21:00 90.719 kg [facility] BMI 2019-11-28 23:21:00 31.32 kg/m2 [facility] Systolic blood pressure 2019-11-29 01:00:00 135 mm[Hg] [facility] Diastolic blood pressure 2019-11-29 01:00:00 81 mm[Hg] [facility] Heart rate 2019-11-29 01:00:00 72 /min [facility] Respiratory rate 2019-11-29 01:00:00 20 /min [facility] Oxygen saturation in Arterial blood by Pulse oximetry 2019-11-29 01:00:00 98 /min [facility] Body temperature 2019-11-28 23:21:00 37.56 Alana [facility] Body height 2019-11-28 23:21:00 170.2 cm [facility] Body weight 2019-11-28 23:21:00 90.719 kg [facility] BMI 2019-11-28 23:21:00 31.32 kg/m2 [facility] Procedures Procedure Date / Time Performed Performing Clinician Source XR CHEST 1 VW 2022-01-15 18:15:00 Kane To [facility] DUPLEX VENOUS LEGS BILATERAL - BY VASCULAR LAB 2022-01-15 17:11:00 Rikki Roman [facility] US RETROPERITONEAL COMPLETE 2022-01-15 15:52:29 Juan R Ovalles [facility] NM LUNG VENTILATION AND PERFUSION 2022-01-15 15:30:00 Rikki Roman [facility] PROTHROMBIN TIME / INR 2022-01-14 20:05:00 Taz Rodriguez [facility] D-DIMER 2022-01-14 20:05:00 [facility] ACTIVATED PARTIAL THRMPLAS GILL 2022-01-14 20:05:00 Lukasz Rodriguez [facility] HB ECG ROUTINE & RHYTHM STRIP 2022-01-14 19:15:32 Lukasz Rodriguez [facility] LIPASE 2022-01-14 19:15:00 [facility] TROPONIN I 2022-01-14 19:15:00 [facility] COMP. METABOLIC PANEL ([id number]) 2022-01-14 19:15:00 Lukasz Rodriguez [facility] IRON PANEL 2022-01-14 19:15:00 Shae Trejo [facility] CBC WITH DIFF 2022-01-14 19:15:00 Luaksz Rodriguez [facility] URINALYSIS 2022-01-14 19:15:00 [facility] N-TERMINAL PRO-BNP 2022-01-14 19:15:00 Lukasz Rodriguez [facility] NOTICE OF PRIVACY PRACTICES 2022-01-14 17:51:55 Doctor Unassigned, [place] [facility] CONSENT/REFUSAL FOR DIAGNOSIS AND TREATMENT 2022-01-14 17:51:21 Doctor Unassigned, [facility] MR ABDOMEN W WO CONTRAST 2021-11-21 14:30:00 Vance Duran [facility] ASSIGNMENT OF BENEFITS 2021-11-21 13:04:52 Docto r Unassigned, [facility] XR CHEST 2 VW 2019-11-28 23:58:38 [facility] (ID NOW RAPID TESTING) 2019-11-28 23:41:00 Marychuy Magaña [facility] LIPASE 2019-11-28 23:36:00 Marychuy Magaña [facility] TEST, SERUM 2019-11-28 23:36:00 Edil Magaña [facility] TROPONIN I 2019-11-28 23:36:00 Marychuy Magaña [facility] HEPATIC FUNCTION PANEL (36190) (ALB,T.PRO,BILI T,BU/BC,ALT,AST,ALK PHOS) 2019-11-28 23:36:00 Marychuy Magaña [facility] BASIC METABOLIC PANEL (NA, K, CL, CO2, GLUCOSE, BUN, CREATININE, CA) 2019-11-28 23:36:00 Marychuy Magaña [facility] CBC WITH DIFF 2019-11-28 23:36:00 [facility] 2019-11-28 23:36:00 Nikolai Magaña [facility] ACTIVATED PARTIAL THRMPLAS GILL 2019-11-28 23:36:00 Marychuy Magaña [facility] EKG-12 LEAD 2019-11-28 23:31:41 Marychuy Magaña [facility] NOTICE OF PRIVACY PRACTICES 2019-11-28 22:55:14 Doctor Unassigned, [facility] CONSENT/REFUSAL FOR DIAGNOSIS AND TREATMENT 2019-11-28 22:53:30 Doctor Unassigned, [facility] Encounters Start Date/Time End Date/Time Encounter Type Admission Type Attending [facility] Care Facility Care Department Encounter ID Source 2022-09-09 00:00:00 2022-09-09 00:00:00 Outpatient GC_GCBZW_Ka diyala_S PRIV PRIV [id number] [facility] 2022-09-07 00:00:00 2022-09-07 00:00:00 Outpatient GC_GCBZW_Ka diyala_S PRIV PRIV [id number] [facility] 2022-09-07 00:00:00 2022-09-07 00:00:00 Outpatient GC_GCBZW_Ka diyala_S PRIV PRIV [id number] [facility] 2022-02-13 13:00:00 2022-02-13 13:00:00 Outpatient GLADYS ROSE [facility] [id number] [facility] 2022-01-16 00:00:00 2022-01-16 00:00:00 Patient Secure Msg Doctor Unassigned, [facility] 1.114 350.1.13.10 4.2.7.2.686 [id number] [facility] 2022-01-14 12:12:00 2022-01-15 17:38:00 Outpatient X SHERI TOI [facility] [id number] [facility] 2022-01-14 12:12:00 2022-01-15 17:38:00 Emergency Rodriguez, Lukasz Roman[facility] 1..114 350.1.13.10 4.2.7.2.686 [id number] [facility] 2021-11-21 08:06:06 2021-11-21 23:59:00 Outpatient R BERNADINE VANCE [facility] [id number] [facility] 2021-11-21 08:06:06 2021-11-21 23:59:00 Hospital Encounter DuranVance Sanjay [facility] 1.114 350.1.13.10 4.2.7.2.686 [id number] [facility] 2021-11-21 00:00:00 2021-11-21 00:00:00 Orders Only Doctor Unassigned, [facility] 1.114 350.1.13.10 4.2.7.2.686 [id number] [facility] 2020-12-18 12:36:22 2020-12-18 12:51:22 Laboratory Only Only, Ang Db Test Soheila Mcraetany [facility] 1.114 350.1.13.10 4.2.7.2.686 [id number] [facility] 2020-12-18 12:30:00 2020-12-18 12:30:00 Outpatient R ELENA MCRAE [facility] [id number] [facility] 2020-12-18 10:32:34 2020-12-18 11:02:34 Office Visit Nataly Noonan 1.840.114 350.1.13.13 1.2.7.2.686 [id number] Imani Damico 2020-06-16 10:40:00 2020-06-16 10:40:00 Outpatient R PAVITHRA BEARD [facility] [id number] [facility] 2020-06-16 10:18:56 2020-06-16 10:38:56 Laboratory Only Lab, [facility] Pob Eusebia Beard [facility] Office Building One 1..114 350.1.13.10 4.2.7.2.686 [id number] [facility] 2020-06-09 10:40:00 2020-06-09 10:40:00 Outpatient R CHIRAG PAVITHRA [facility] [id number] [facility] 2020-06-09 10:18:04 2020-06-09 10:38:04 Laboratory Only Lab, [facility] P[facility] I Chirag [facility] Office Building One 1..114 350.1.13.10 4.2.7.2.686 [id number] [facility] 2020-05-02 17:20:29 2020-05-02 17:40:29 Laboratory Only Lab, [facility] I DanielSahra [facility] Office Building One 1.0.114 350.1.13.10 4.2.7.2.686 [id number] [facility] 2020-05-02 17:20:29 2020-05-02 17:40:29 Laboratory Only Lab, [facility] Pob I 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 Office Building One .114 350.1.13.10 4.2.7.2.686 [id number] [facility] 2020-03-13 12:56:07 2020-03-13 13:11:07 Crystal Machining Coordinator Visit Lab, [facility] Office Building One 1.114 350.1.13.10 4.2.7.2.686 [id number] 2020-03-10 10:55:00 2020-03-10 10:55:00 Outpatient PAVITHRA ROQUE [facility] [id number] [facility] 2020-03-10 10:28:45 2020-03-10 10:43:45 Laboratory Only Lab, [facility] Chirag [facility] Office Building One .114 350.1.13.10 4.2.7.2.686 [id number] [facility] 2020-03-10 10:28:45 2020-03-10 10:43:45 Laboratory Only Lab, [facility] Office Building One .114 350.1.13.10 4.2.7.2.686 [id number] 2020-01-12 14:26:11 2020-01-12 14:46:11 Laboratory Only Lab, [facility] Pob Dulce Griffin [facility] Office Building One 1.2.840.114 350.1.13.10 4.2.7.2.686 [id number] [facility] 2020-01-12 14:26:11 2020-01-12 14:46:11 [facility] Office Building One 1.2840.114 350.1.13.10 4.2.7.2.686 [id number] 2020-01-12 14:40:00 2020-01-12 14:40:00 Outpatient R DULCE SHUKLA [facility] [id number] [facility] 2019-11-28 18:27:00 2019-11-28 21:33:00 [place] [facility] [facility] 1.2.840.114 350.1.13.10 4.2.7.2.686 [id number] [facility] 2019-11-28 18:27:00 2019-11-28 21:33:00 Emergency Marychuy Magaña Jose [facility] 1.2.840.114 350.1.13.10 4.2.7.2.686 [id number] 2019-11-28 17:52:00 2019-11-28 17:52:00 Emergency X [facility] ERT [id number] [facility] Results Test Description Test Time Test Comments Results Result Co mments Source [id number] 21:06:52* Test Item Value Reference Range Interpretation Comments D-DIMER (test code = 1500171337) See_Comment H [Automated message] The system which generated this result transmitted reference range: <0.41 ?g/mL (FEU). The reference range was not used to interpret this result as normal/abnormal. KALANI (test code = KALANI) This test may be used in conjunction with a clinical pretest [...] context, in forming a diagnosis. Lab Interpretation (test code = 39550-8) [facility]normal [facility] THRMPLAS [id number] 21:02:07* Test Item Value Reference Range Interpretation Comme [facility] APTT Patient (test code = 3173-2) See_Comment [Automated message] The system which generated this result transmitted reference range: 23 - 38 Seconds. The reference range was not used to interpret this result as normal/abnormal. KALANI (test code = KALANI) The [facility] patient population mean normal value for aPTT is 30 seconds. Lab Interpretation (test code = 88009-3) Normal [facility] / [id number] 20:59:29* Test Item Value Reference Range Interpretation Comme [facility] PROTIME PATIENT (test code = 5964-2) See_Comment [Automated [employer] Dexetra] The system which generated this result transmitted reference range: 12.0 - 14.7 Seconds. The reference range was not used to interpret this result as normal/abnormal. INR (test code = 6301-6) Normal INR <1.1; Warfarin Therapeutic range 2.0 to 3.0 or 2.5 to 3.5, depending upon the indications. Lab Interpretation (test code = 05218-8) Normal [facility] [id number] 20:05:43* Test Item Value Reference Range Interpretation Comments TROPONIN I (test code = 0728485585) 0.011 ng/mL See_Comment [Automated message] The system which generated this result transmitted reference range: <=0.034. The reference range was not used to interpret this result as normal/abnormal. KALANI (test code = KALANI) Reference (Normal) Range (defined by the 99th percentile reference [...] to patient's use of biotin. Lab Interpretation (test code = 04504-4) Normal [facility] Hospital[facility]-TERMINAL [id number] 20:02:37* Test Item Value Reference Range Interpretation Comme nts NT-proBNP (test code = 3224552151) 83 pg/mL See_Comment [Automated message] The system which generated this result transmitted reference range: <=125. The reference range was not used to interpret this result as normal/abnormal. KALANI (test code = KALANI) Biotin has been reported to cause a negative bias, interpret results relative to patient's use of biotin. Lab Interpretation (test code = 16380-1) Normal [facility] MET[facility]OLIC PANEL (72709)2022-01-14 19:53:55* Test Item Value Reference Range Interpretation Comme nts NA (test code = 9303603553) 136 mmol/L 135-145 K (test code = 7283799420) 5.1 mmol/L 3.5-5.0 H CL (test code = 4213606628) 104 mmol/L 98-108 CO2 TOTAL (test code = 7362884100) 23 mmol/L 23-31 AGAP (test code = 2566993620) 2-16 BUN (test code = 8903407251) 11 mg/dL 7-23 GLUCOSE (test code = 6347247466) 88 mg/dL 70-110 CREATININE (test code = 2338527173) 0.79 mg/dL 0.50-1.04 TOTAL BILI (test code = 6656798569) 0.9 mg/dL 0.1-1.1 CALCIUM (test code = 5705561021) 9.5 mg/dL 8.6-10.6 T PROTEIN (test code = 4823762134) 8.9 g/dL 6.3-8.2 H ALBUMIN (test code = 5247925682) 5.0 g/dL 3.5-5.0 ALK PHOS (test code = 3119146414) 39 U/L 34-122 ALTv (test code = 1742-6) 34 U/L 5-35 AST(SGOT) (test code = 1516227095) 36 U/L 13-40 eGFR (test code = 3240323645) mL/min/1.73m2 KALANI (test code = KALANI) Association of [...] or abnormalities in imaging tests). Lab Interpretation (test code = 21295-3) [facility]normal [facility]2022-[facility]-16 19:53:55* Test Item Value Reference Range Interpretation Comme nts LIPASE (test code = 2857019209) 93 U/L 0-220 Lab Interpretation (test cod e = 86298-8) Normal [facility] WITH [id number] 19:33:55* Test Item Value Reference Range Interpretation Comme nts WBC (test code = 6690-2) See_Comment [Automated messa ge] The system which generated this result transmitted reference range: 4.30 - 11.10 10*3/?L. The reference range was not used to interpret this result as normal/abnormal. RBC (test code = 789-8) See_Comment [Automated messa ge] The system which generated this result transmitted reference range: 3.93 - 5.25 10*6/?L. The reference range was not used to interpret this result as normal/abnormal. HGB (test code = 718-7) 14.0 g/dL 11.6-15.0 HCT (test code = 4544-3) 40.7 % 35.7-45.2 MCV (test code = 787-2) 85.3 fL 80.6-95.5 MCH (test code = 785-6) 29.4 pg 25.9-32.8 MCHC (test code = 786-4) 34.4 g/dL 31.6-35.1 RDW-SD (test code = 00164-8) 38.4 fL 39.0-49.9 L RDW-CV (test code = 788-0) 12.3 % 12.0-15.5 PLT (test code = 777-3) See_Comment [Automated messa ge] The system which generated this result transmitted reference range: 166 - 358 10*3/?L. The reference range was not used to interpret this result as normal/abnormal. MPV (test code = 05437-4) 9.2 fL 9.5-12.9 L NRBC/100 WBC (test code = 0359857402) See_Comment [Automated [employer] ssage] The system which generated this result transmitted reference range: 0.0 - 10.0 /100 WBCs. The reference range was not used to interpret this result as normal/abnormal. NRBC x10^3 (test code = 1858229415) See_Comment [Automated messa ge] The system which generated this result transmitted reference range: 10*3/?L. The reference range was not used to interpret this result as normal/abnormal. GRAN MAT (NEUT) % (test code = 770-8) 60.7 % IMM GRAN % (test code = 0289801189) 0.10 % LYMPH % (test code = 736-9) 33.7 % MONO % (test code = 5905-5) 4.4 % EOS % (test code = 713-8) 0.7 % BASO % (test code = 706-2) 0.4 % GRAN MAT x10^3(ANC) (test code = 5390862203) 4.14 10*3/uL 1.88-7.09 IMM GRAN x10^3 (test code = 4061309354) 0.00-0.06 LYMPH x10^3 (test code = 731-0) 2.30 10*3/uL 1.32-3.29 MONO x10^3 (test code = 742-7) 0.30 10*3/uL 0.33-0.92 L EOS x10^3 (test code = 711-2) 0.05 10*3/uL 0.03-0.39 BASO x10^3 (test code = 704-7) 0.03 10*3/uL 0.01-0.07 Lab Interpretation (test code = 01131-3) [facility] 2 [id number] 00:35:04Impression: No acute abnormalities evident. RL: 460 [...] thoracic pain.Technique: Chest, 2 viewsComparison: NoneFindings: The cherise gs are clear. No pleural effusions are evident. Heart size isnormal. The superior mediastinal silhouette is unremarkable for age andprojection. No acute bony abnormalities are evident. Surgical clipsareseen within the upper abdomen.IMPRESSIONImpression:No acute abnormalities evident.RL: 460End of R e[facility], [id number] 00:30:00* Test Item Value Reference Range Interpretation Comme nts PREG SERUM (test code = 9981877046) Negative KALANI (test code = KALANI) Less than 10 IU/L. ?If low titer or ectopic is suspected, resubmit specimen in 48-72 hours. [facility] HospitalTroponin [id number] 00:27:00* Test Item Value Reference Range Interpretation Comme nts TROPONIN I (test code = 1750440244) 0.001 ng/mL See_Comment [Automated message] The system which generated this result transmitted reference range: <=0.034. The reference range was not used to interpret this result as normal/abnormal. KALANI (test code = KALANI) Equal or Less than 0.034 ng/ml---Normal ?Note: Cardiac troponin begins to [...] patient's use of biotin. ? Lab Interpretation (test code = 84847-2) Normal [facility]COVID[facility] (ID NOW RAPID TESTING)2019-11-29 00:21:00* Test Item Value Reference Range Interpretation Comme nts SARS-CoV-2 Rapid ID NOW (test code = 23195-0) Not Detected Not Detected KALANI (test code = KALANI) ID NOW COVID-19 As say is an isothermal nucleic acid amplification test intended for the qualitative detection of nucleic acid from SARS-CoV-2 viral RNA in nasopharyngeal (XRAY TECH) specimens. It is used under Emergency Use [...] patient testing if clinically indicated. Lab Interpretation (test code = 31746-1) Normal [facility] Hospital[facility] Function Panel (ALB, T.PRO, BILI T, BU/BC, ALT, AST, ALK PHOS)2019-11-29 00:18:00* Test Item Value Reference Range Interpretation Comme nts TOTAL BILI (test code = 1440643189) 0.5 mg/dL 0.1-1.1 BILI UNCON (test code = 6308298092) 0.7 mg/dL 0.1-1.1 BILI CONJ (test code = 0523693938) 0.0 mg/dL 0-0.3 T PROTEIN (test code = 8727244748) 8.3 g/dL 6.3-8.2 H ALBUMIN (test code = 1455455067) 4.3 g/dL 3.5-5 ALK PHOS (test code = 7753304289) 60 U/L 34-122 ALTv (test code = 1742-6) 20 U/L 5-35 AST(SGOT) (test code = 6366088265) 24 U/L 13-40 Lab Interpretation (test cod e = 71590-6) Abnormal [facility] HospitalBasi Metabolic Panel (NA, K, CL, CO2, GLUCOSE, BUN, CREATININE, CA)2019-11-29 00:15:00* Test Item Value Reference Range Interpretation Comme nts NA (test code = 6329153120) 137 mmol/L 135-145 K (test code = 9041942099) 3.8 mmol/L 3.5-5 CL (test code = 5494515193) 101 mmol/L 98-108 CO2 TOTAL (test code = 7000927869) 26 mmol/L 23-31 AGAP (test code = 1864240482) 2-16 BUN (test code = 1381878950) 8 mg/dL 7-23 GLUCOSE (test code = 7400979265) 93 mg/dL 70-110 CREATININE (test code = 3415402715) 0.72 mg/dL 0.5-1.04 CALCIUM (test code = 3408307525) 9.5 mg/dL 8.6-10.6 eGFR Calculation (Non-) (test code = 5398154485) mL/min/1.73m2 eGFR Calculation () (test code = 2379225851) mL/min/1.73m2 KALANI (test code = KALANI) Association of [...] or urine or abnormalities in imaging tests). [facility] HospitalLipase [id number] 00:15:00* Test Item Value Reference Range Interpretation Comme [facility] LIPASE (test code = 8235190543) 97 U/L 0-220 Lab Interpretation (test cod e = 63907-2) Normal [facility] HospitalaPTT2020-09-30 00:03:00* Test Item Value Reference Range Interpretation Comme nts APTT Patient (test code = 3173-2) See_Comment [Automated message] The system which generated this result transmitted reference range: 23 - 38 Seconds. The reference range was not used to interpret this result as normal/abnormal. KALANI (test code = KALANI) The [facility] patient population mean normal value for aPTT is 30 seconds. Lab Interpretation (test code = 53547-4) Normal [facility] HospitalProthrombin Time (PT) / [id number] 00:01:00 * Test Item Value Reference Range Interpretation Comme [facility] PROTIME PATIENT (test code = 5964-2) See_Comment [Automated [employer] Dexetra] The system which generated this result transmitted reference range: 12.0 - 14.7 Seconds. The reference range was not used to interpret this result as normal/abnormal. INR (test code = 6301-6) Normal INR <1.1; Warfarin Therapeutic range 2.0 to 3.0 or 2.5 to 3.5, depending upon the indications. Lab Interpretation (test code = 76372-3) Normal [facility] HospitalCBC with [id number] 23:52:00* Test Item Value Reference Range Interpretation Comme [facility] WBC (test code = 6690-2) See_Comment [Automated [employer] Dexetra] The system which generated this result transmitted reference range: 4.30 - 11.10 10*3/?L. The reference range was not used to interpret this result as normal/abnormal. RBC (test code = 789-8) See_Comment [Automated [employer] Dexetra] The system which generated this result transmitted reference range: 3.93 - 5.25 10*6/?L. The reference range was not used to interpret this result as normal/abnormal. HGB (test code = 718-7) 13.6 g/dL 11.6-15 HCT (test code = 4544-3) 39.9 % 35.7-45.2 MCV (test code = 787-2) 86.9 fL 80.6-95.5 MCH (test code = 785-6) 29.6 pg 25.9-32.8 MCHC (test code = 786-4) 34.1 g/dL 31.6-35.1 RDW-SD (test code = 97990-2) 40.2 fL 39-49.9 RDW-CV (test code = 788-0) 12.8 % 12-15.5 PLT (test code = 777-3) See_Comment [Automated messa ge] The system which generated this result transmitted reference range: 166 - 358 10*3/?L. The reference range was not used to interpret this result as normal/abnormal. MPV (test code = 24201-0) 9.1 fL 9.5-12.9 L NRBC/100 WBC (test code = 4867014814) See_Comment [Automated [employer] ssage] The system which generated this result transmitted reference range: 0.0 - 10.0 /100 WBCs. The reference range was not used to interpret this result as normal/abnormal. NRBC x10^3 (test code = 2797317786) <0.01 See_Comment [Automated messa ge] The system which generated this result transmitted reference range: 10*3/?L. The reference range was not used to interpret this result as normal/abnormal. GRAN MAT (NEUT) % (test code = 770-8) 60.4 % IMM GRAN % (test code = 3980138766) 0.10 % LYMPH % (test code = 736-9) 33.1 % MONO % (test code = 5905-5) 5.6 % EOS % (test code = 713-8) 0.5 % BASO % (test code = 706-2) 0.3 % GRAN MAT x10^3(ANC) (test code = 9765458419) 5.98 10*3/uL 1.88-7.09 IMM GRAN x10^3 (test code = 3928308844) <0.03 0-0.06 LYMPH x10^3 (test code = 731-0) 3.27 10*3/uL 1.32-3.29 MONO x10^3 (test code = 742-7) 0.55 10*3/uL 0.33-0.92 EOS x10^3 (test code = 711-2) 0.05 10*3/uL 0.03-0.39 BASO x10^3 (test code = 704-7) 0.03 10*3/uL 0.01-0.07 Lab Interpretation (test code = 36150-3) Abnormal [facility]
[2023-03-24 22:21] LABS: Absolute Lymphocytes (CBC) 4.1 K/uL (0.7-4.9); Hematocrit 37.8 % (36.0-45.0); MCV 88.5 fL (80-100); MPV 6.9 fL (7.6-11.3); Platelets 305 thou/uL (152-406); RBC Red Blood Cell Count 4.28 M/uL (3.86-4.86)
--- NOTE | 2023-03-24 22:28 | RAD REPORT ---
EXAM DESCRIPTION: CT - Head Brain Wo Cont - 03/24/2023 10:20 pm CLINICAL HISTORY: PAIN Headache, drowsiness COMPARISON: Head Brain Wo Cont dated 09/27/2019 TECHNIQUE: All CT scans are performed using dose optimization technique as appropriate and may inclu de automated exposure control or mA/KV adjustment according to patient size. FINDINGS: No intracranial hemorrhage, hydrocephalus or extra-axial fluid collection.No areas of brai n edema or evidence of midline shift. The paranasal sinuses and mastoids are clear. The calvarium is intact. IMPRESSION: No acute intracranial abnormality.
[2023-03-24 22:36] LABS: Magnesium 2.1 mg/dL (1.6-2.4); Potassium 3.8 mEq/L (3.5-5.1); Troponin High Sensitivity 3.4 pg/mL (<58.9)
[2023-03-24 23:13] LABS: Blood Morphology Comment NOT SEEN (NOT SEEN); Platelet Estimate ADEQ
--- NOTE | 2023-03-25 00:10 | ER ---
Nurse's Notes [facility] Name: Renee Castellon Age: 47 yrs Sex: Female : 1975 Arrival Date: 03/24/2023 Time: 21:27 Bed 20 Private MD: Diagnosis: Acute upper respiratory infection, unspecified;Headache;Chest pain, unspecified Presentation: 03/24 21:57 Chief complaint: Patient states: headache and dizziness. Coronavirus screen: At this as6 time, the client does not indicate any symptoms associated with coronavirus-19. Ebola Screen: No symptoms or risks identified at this time. Initial Sepsis Screen: Does the patient meet any 2 criteria? No. Patient's initial sepsis screen is negative. Does the patient have a suspected source of infection? No. Patient's initial sepsis screen is negative. Risk Assessment: Do you want to hurt yourself or someone else? Patient reports no desire to harm self or others. Onset of symptoms was March 24, 2023. 21:57 Method Of Arrival: Ambulatory as6 21:57 Acuity: MICH 3 as6 Triage Assessment: 22:23 General: Appears uncomfortable, Behavior is calm, cooperative. Pain: Complains of pain as6 in head. 03/25 00:25 Pain: Also complains of. 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 - Social history:: Smoking status: Patient denies any tobacco usage or history of. Screenin/25 00:19 [facility] ED Fall Risk Assessment (Adult) History of falling in the last 3 months, vc1 including since admission No falls in past 3 months (0 pts) Confusion or Disorientation No (0 pts) Intoxicated or Sedated No (0 pts) Impaired Gait No (0 pts) Mobility Assist Device Used No (0 pt) Altered Elimination No (0 pt) Score/Fall Risk Level 0 - 2 = Low Risk Oriented to surroundings, Maintained a safe environment, Educated pt \T\ family on fall prevention, incl call for assistance when getting out of bed. Abuse screen: Denies threats or abuse. Nutritional screening: No deficits noted. Tuberculosis screening: No symptoms or risk factors identified. Assessment: 03/24 22:00 General: Appears uncomfortable, Behavior is cooperative. Pain: Complains of pain in ha1 head Pain radiates to occipital area Pain currently is 10 out of 10 on a pain scale. Quality of pain is described as throbbing. Neuro: Goldsmith Agitation-Sedation Scale (RASS): 0 - Alert and Calm Level of Consciousness is awake, alert, obeys commands, Oriented to person, place, time, situation. Cardiovascular: Capillary refill < 3 seconds Patient's skin is warm and dry. Respiratory: Airway is patent Respiratory effort is even, unlabored, Respiratory pattern is regular, symmetrical. Derm: Skin is pink, warm \T\ dry. Musculoskeletal: Circulation, motion, and sensation intact. Range of motion: intact in all extremities. 23:44 Reassessment: Patient and/or family updated on plan of care and expected duration. Pain ha1 level reassessed. Patient is alert, oriented x 3, equal unlabored respirations, skin warm/dry/pink. Vital Signs: 21:57 BP 158 / 115; Pulse 90; Resp 18 S; Temp 97.9(TE); Pulse Ox 100% on R/A; as6 22:00 Weight 89.36 kg (R); Height 5 ft. 7 in. (R); Pain 8/10; as6 23:44 BP 142 / 82; Pulse 98; Resp 17 S; Pulse Ox 98% ; ha1 22:00 Body Mass Index 30.85 (89.36 kg, 170.18 cm) as6 22:00 Pain Scale: Adult as6 [place] Coma Score: 03/25 00:15 Eye Response: spontaneous(4). Motor Response: obeys commands(6). Verbal Response: kb oriented(5). Total: 15. ED Course: 03/24 21:32 Patient arrived in ED. es 21:38 [facility] kb 21:38 Octavio Tejeda MD is Attending Physician. kb 21:57 Arm band placed on. as6 21:58 Triage completed. as6 22:01 Patient has correct armband on for positive identification. Placed in gown. Bed in low ha1 position. Call light in reach. Side rails up X 1. 22:09 Inserted saline lock: 20 gauge in right forearm, using aseptic technique. Blood as6 collected. 22:22 CT Head Brain wo Cont In Process Unspecified. EDMS 22:53 XRAY Chest (1 view) In Process Unspecified. EDMS 23:16 Brook Olvera, RN is Primary Nurse. ha1 03/25 00:19 No provider procedures requiring assistance completed. IV discontinued, intact, vc1 bleeding controlled, No redness/swelling at site. Pressure dressing applied. Administered Medications: 03/24 23:17 Drug: NS 0.9% IV 1000 ml IV at 1000 ml once Route: IV; Rate: 1000 ml; Site: right ha1 forearm; 03/25 00:20 Follow up: IV Status: Completed infusion; IV Intake: 1000ml vc1 00:20 Follow up: Response: No adverse reaction; Marked relief of symptoms; Pain is decreased vc1 03/24 23:18 Drug: diphenhydrAMINE IVP 12.5 mg IVP once Route: IVP; Site: right forearm; [facility] 03/25 00:21 Follow up: Response: No adverse reaction; Marked relief of symptoms vc1 03/24 23:20 Drug: metoCLOPramide IVP 10 mg IVP once; over 1 to 2 minutes Route: IVP; Site: left ha1 antecubital; 03/25 00:21 Follow up: Response: No adverse reaction; Marked relief of symptoms vc1 03/24 23:22 Drug: Ketorolac IVP 15 mg IVP once Route: IVP; Site: right forearm; [facility] 03/25 00:21 Follow up: Response: No adverse reaction; Marked relief of symptoms; Pain is decreased vc1 03/24 23:25 Drug: Decadron - Dexamethasone IVP 10 mg IVP once Route: IVP; Site: right forearm; [facility] 03/25 00:21 Follow up: Response: No adverse reaction; Marked relief of symptoms; Pain is decreased vc1 Medication: 00:19 VIS not applicable for this client. vc1 Intake: 00:20 IV: 1000ml; Total: 1000ml. vc1 Outcome: 00:10 Discharge ordered by MD. edwards 00:19 Discharged to home ambulatory, vc1 00:19 Condition: good 00:19 Discharge instructions given to patient, Instructed on discharge instructions, follow up and referral plans. Demonstrated understanding of instructions, follow-up care, 00:20 Patient left the ED. vc1 Signatures: Dispatcher [employer] Marylu Bass, ACCOUNT SPECIALIST-C ACCOUNT SPECIALIST-Cortney Johnson Ashby, RN RN as6 Yari Beauchamp RN RN vc1 Brook Olvera RN RN ha1
--- NOTE | 2023-03-25 00:10 | EDPHYS ---
Physician Documentation [facility] Name: Renee Castellon Age: 47 yrs Sex: Female : 1975 Arrival Date: 03/24/2023 Time: 21:27 Bed 20 Private MD: ED Physician Octavio Tejeda HPI: 03/25 00:15 This 47 yrs old Female presents to ER via Ambulatory with complaints of Headache, Neck kb Pain, <24hrs Old, Chest pressure. 00:15 Patient is a 47-year-old female who presents for cough, congestion, malaise, fatigue, kb fever and headache that started 1 week ago. States she was seen at urgent care, tested negative for flu, COVID and RSV. States today she has felt some chest pain and her headache was worse. Denies fever today.. 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 - Social history:: Smoking status: Patient denies any tobacco usage or history of. ROS: 03/25 00:14 Abdomen/GI: Negative for abdominal pain, nausea, vomiting, diarrhea, and constipation, kb Constitutional: Positive for fatigue, malaise, ENT: Positive for sinus congestion, Cardiovascular: Positive for chest pain, Respiratory: Positive for cough, Neuro: Positive for headache, All other systems are negative, Exam: 00:14 Constitutional: This is a well developed, well nourished patient who is awake, alert, kb and in no acute distress. Head/Face: Normocephalic, atraumatic. Eyes: Pupils equal round and reactive to light, extra-ocular motions intact. Lids and lashes normal. Conjunctiva and sclera are non-icteric and not injected. Cornea within normal limits. Periorbital areas with no swelling, redness, or edema. ENT: Moist Mucous membranes Cardiovascular: Regular rate Respiratory: Respirations even and unlabored. No increased work of breathing. Talking in full sentences Abdomen/GI: Soft, non-tender. No distention Skin: Warm, dry with normal turgor. Normal color. MS/ Extremity: Pulses equal, no cyanosis. Neurovascular intact. Full, normal range of motion. Neuro: Awake and alert, GCS 15, oriented to person, place, time, and situation. Moves all extremities. Normal gait. Vital Signs: 03/24 21:57 BP 158 / 115; Pulse 90; Resp 18 S; Temp 97.9(TE); Pulse Ox 100% on R/A; as6 22:00 Weight 89.36 kg (R); Height 5 ft. 7 in. (R); Pain 8/10; as6 23:44 BP 142 / 82; Pulse 98; Resp 17 S; Pulse Ox 98% ; ha1 22:00 Body Mass Index 30.85 (89.36 kg, 170.18 cm) as6 22:00 Pain Scale: Adult as6 Jen Coma Score: 03/25 00:15 Eye Response: spontaneous(4). Motor Response: obeys commands(6). Verbal Response: kb oriented(5). Total: 15. MDM: 03/24 21:39 Patient medically screened. kb 03/25 00:15 Differential diagnosis: migraine, sinusitis, tension headache, flu, covid, [place], abnormal kb EKG. Data reviewed: vital signs, nurses notes. I considered the following discharge prescriptions or medication management in the emergency department I discussed and recommended Over The Counter medications, Antibiotics: At this time antibiotics are not recommended, Antivirals: At this time, antivirals are not recommended. Counseling: I had a detailed discussion with the patient and/or guardian regarding the historical points, exam findings, and any diagnostic results supporting the discharge/admit diagnosis, lab results, radiology results, the need for outpatient follow up, a family practitioner, to return to the emergency department if symptoms worsen or persist or if there are any questions or concerns that arise at home. 03/24 22:01 Order name: Basic Metabolic Panel; Complete Time: 22:56 kb 03/24 22: Order name: CBC with Diff; Complete Time: 23:18 kb 03/24 22: Order name: Magnesium; Complete Time: 22:56 kb 03/24 22: Order name: Troponin HS; Complete Time: 22:56 kb 03/24 22:01 Order name: Flu; Complete Time: 00:05 kb 03/24 22:01 Order name: COVID-19 SARS RT PCR; Complete Time: 23:38 kb 03/24 22:24 Order name: Manual Differential; Complete Time: 23:18 EDMS 03/24 22:01 Order name: XRAY Chest (1 view) kb 03/24 22:01 Order name: CT Head Brain wo Cont; Complete Time: 22:31 kb 03/24 22:01 Order name: EKG; Complete Time: 22:02 kb 03/24 22:01 Order name: Cardiac monitoring; Complete Time: 23:17 kb 03/24 22:01 Order name: EKG - Nurse/Tech; Complete Time: 23:17 kb 03/24 22:01 Order name: IV Saline Lock; Complete Time: 22:09 kb 03/24 22:01 Order name: Labs collected and sent; Complete Time: 22:09 kb 03/24 22:01 Order name: O2 Per Protocol; Complete Time: 23:17 kb 03/24 22:01 Order name: O2 Sat Monitoring; Complete Time: 23:17 kb Administered Medications: 03/24 23:17 Drug: NS 0.9% IV 1000 ml IV at 1000 ml once Route: IV; Rate: 1000 ml; Site: right [facility] forearm; 03/25 00:20 Follow up: IV Status: Completed infusion; IV Intake: 1000ml vc 00:20 Follow up: Response: No adverse reaction; Marked relief of symptoms; Pain is decreased vc03/24 23:18 Drug: diphenhydrAMINE IVP 12.5 mg IVP once Route: IVP; Site: right forearm; [facility] 03/25 00:21 Follow up: Response: No adverse reaction; Marked relief of symptoms vc03/24 23:20 Drug: metoCLOPramide IVP 10 mg IVP once; over 1 to 2 minutes Route: IVP; Site: left [facility] antecubital; 03/25 00:21 Follow up: Response: No adverse reaction; Marked relief of symptoms vc03/24 23:22 Drug: Ketorolac IVP 15 mg IVP once Route: IVP; Site: right forearm; [facility] 03/25 00:21 Follow up: Response: No adverse reaction; Marked relief of symptoms; Pain is decreased vc03/24 23:25 Drug: Decadron - Dexamethasone IVP 10 mg IVP once Route: IVP; Site: right forearm; ha1 03/25 00:21 Follow up: Response: No adverse reaction; Marked relief of symptoms; Pain is decreased vc1 Disposition: 04:08 Co-signature as Attending Physician, Octavio Tejeda MD I agree with the assessment sp4 and plan of care. I reviewed the patient's care provided by the Advanced Practice Provider and agree with the diagnosis and treatment plan. Disposition Summary: 03/25/23 00:10 Discharge Ordered Notes: Location: Home kb Condition: Stable kb Diagnosis - Acute upper respiratory infection, unspecified kb - Headache kb - Chest pain, unspecified kb Followup: kb - With: Emergency Department - When: As needed - Reason: Worsening of condition Followup: kb - With: Private Physician - When: 2 - 3 days - Reason: Recheck today's complaints, Continuance of care, Re-evaluation by your physician Discharge Instructions: - Discharge Summary Sheet kb - Nonspecific Chest Pain, Adult, [id number] kb - Upper Respiratory Infection, Adult, [id number] kb - General Headache Without Cause, [id number] kb Forms: - Medication Reconciliation Form kb - Thank You Letter kb - Antibiotic Education kb - Prescription Opioid Use kb - Patient Portal Instructions kb - Leadership Thank You Letter kb Signatures: Dispatcher [employer] Marylu Bass, MAUREEN JIMENEZP-Nikhil Voss RN RN as6 Brook Olvera RN RN ha1 Octavio Tejeda MD MD sp4 Yari Beauchamp RN vc1
[2023-03-25 02:44] VITALS: TEMP 97.9
[2023-03-25 02:57] VITALS: BP 142/82; O2SAT 98
--- NOTE | 2023-03-25 13:48 | RAD REPORT ---
EXAM DESCRIPTION: RAD - Chest Single View - 03/24/2023 10:52 pm CLINICAL HISTORY: 7 years Female, CHEST PAIN COMPARISON: Chest radiograph dated 03/10/2021 FINDINGS: No focal lung consolidation. No pleural effusion. No pneumothorax. Cardiomediastinal silhouette is within normal limits. No acute osseous abnormality. IMPRESSION: No acute cardiopulmonary disease. Electronically signed by: Cezar Scott DO 03/24/2023 11:12 PM COMPRESSED GASES TESTER Due to temporary technical issues with the PACS/Fluency reporting system, reports are being signed by the in house radiologist without review as a courtesy to ensure prompt reporting. The interpreting r adiologist is fully responsible for the content of the report.
--- NOTE | 2023-03-25 16:26 | EKG ---
Test Date: 2023-03-24 Test Time: 23:06:11 Straight Truck Driver: YAEL MEASUREMENT RESULTS: Intervals: Rate: 70 [place]: 162 QRSD: 72 QT: 396 QTc: 427 [place]: P: 55 [place]: 162 QRS: 8 T: 34 INTERPRETIVE STATEMENTS: Normal sinus rhythm Septal infarct, age undetermined Abnormal ECG Compared to ECG 03/10/2021 06:31:51 Myocardial infarct finding now present Electronically Signed On 03-25-23 16:25:06 PIERCING MACHINE OPERATOR by Jeff Felder
== END ==
LOC: ER 21:27
DX: J06.9 Acute upper respiratory infection, unspecified (principal); R07.9 Chest pain, unspecified; Z11.52 Encounter for screening for COVID-19; Z88.5 Allergy status to narcotic agent; Z91.013 Allergy to seafood; Z91.048 Other nonmedicinal substance allergy status
CPT/HCPCS: 93005; 85025; 80048; 36415; 83735; 84484; 87635; 87804 ×2; 70450; 71045; J2765; J1200; J1100; J7030